=== PATIENT | male | born 1985 | race Caucasian/White ===

== ENCOUNTER 2024-07-27 23:06 | Emergency (ER) | payer OTHER, SELFPAY ==
[2024-07-27 23:24] VITALS: BP 134/93; PULSE 79; TEMP 36.6; O2SAT 96; BMI 25.1
--- NOTE | 2024-07-27 23:31 | CT_ITS ---
The [address] [address] Patient Name: SUPRIYA MAGAÑA MRN: [id number] date: 1985 Sex: M Assigned Patient Location: ER Current Patient Location: Accession/Order Number: [id number] Exam Date: 07/27/2024 23:41 Report Date: 07/27/2024 23:59 At the request of: NEIDA MARKER Procedure: CT head/brain wo con EXAM: CT head/brain wo con INDICATION: 38 years old; Male. Right-sided facial weakness, resolved. TECHNIQUE: CT Head (ax/cor/sag reformats). Ionizing radiation dose reduced via iterative reconstruction/FBP blend and body size kV/mA adjustment. Comparison: MRI the brain dated 03/22/2021. FINDINGS: POSTOPERATIVE CHANGES: None. BRAIN PARENCHYMA: No intraparenchymal or extra-axial hemorrhage. No mass effect. No midline shift or herniation. Normal cabrera/white differentiation. VENTRICLES/EXTRA-AXIAL SPACES: Normal for patient's age. SINUSES/MASTOIDS: The visualized sinuses are clear although the paranasal sinuses are not completely included. Mastoids and middle ears are clear although the mastoid tips are not completely included. MSK: No displaced or depressed calvarial fracture. OTHER: No hyperdense intraluminal thrombus. CT/CT head/brain wo con IMPRESSION: 1. No acute intracranial abnormalities. No hemorrhage or mass effect. Recommend follow-up examination with MRI including diffusion imaging. Electronically authenticated by: MARILUZ DERAS Date: 07/27/2024 23:59
--- NOTE | 2024-07-27 23:33 | ED_ITS ---
HPI - Chest Pain General Chief Complaint: Chest Pain Stated Complaint: CHEST PAIN Time Seen by Provider: 07/27/24 23:09 Source: patient Mode of arrival: Wheelchair Limitations: no limitations History of Present Illness HPI narrative: This 38-year-old male presents for evaluation of intermittent left-sided chest pain. 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 He states that she told him that he either had a heart attack or a seizure in his sleep. The patient has a history of seizures but does not take any seizure medication. He states that he was dizzy at that time and was going to walk out of the house without wearing shoes and couldn't find his cell phone but it was in his hand. He is not currently followed by a neurologist. He went to work and apparently his right sided facial droop had resolved but on the way to work had some left-sided chest pain. It is nonradiating. It is currently resolved. He states he has intermittent chest pain from time to time. He does not smoke cigarettes but vapes. He denies any shortness of breath or dizziness. He denies any abdominal pain. He states that he has nausea and vomits often after getting up from sleep which is not unusual for him. He denies any chronic abdominal pain or back pain. At this time he has clear speech and no focal neurologic deficits. He drove himself to the emergency department from his job. Related Data Home Medications ?Medication ?Instructions ?Recorded ?Confirmed No Known Home Medications 07/27/24 07/27/24 Allergies Allergy/AdvReac Type Severity Reaction Status Date / Time No Known Drug Allergies Allergy Verified 07/27/24 23:24 Review of Systems ROS Status of ROS 10 or more systems reviewed and unremark able except as noted in history and below PFSH PFSH Social History Little interest or pleasure in doing things: not at all Feeling down, depressed, or hopeless: not at all Exam Narrative Exam Narrative: Vital signs and Nursing Notes reviewed: Patient is afebrile with a normal pulse, blood pressure is mildly elevated at 134/93, he is not hypoxic with pulse ox of 96% on room air General: Awake, alert, oriented, no acute distress, lying comfortably on the stretcher HEENT: Normocephalic atraumatic, mucous membranes are moist and pink, eyes are clear, normal conjunctiva, vision is grossly intact, posterior pharynx is normal in appearance. There is no facial droop noted Neck: Supple, no meningeal signs, no anterior or posterior cervical ly mphadenopathy Chest: Lungs are clear to auscultation with good air entry, there is no wheezing rhonchi or rales appreciated no accessory muscle use, patient is speaking in complete sentences-no chest wall tenderness to palpation CVS: Regular rate and rhythm S1-S2, no murmurs rubs or gallops, pulses are brisk and equal bilaterally ABD: Soft, nondistended, nontender, no rebound guarding or rigidity, bowel sounds are normal, no pulsatile masses appreciated Extremities: Moving all extremities, no lower extremity tenderness or swelling noted, negative Homans' sign, pulses are brisk and equal bilaterally Skin: Normal in appearance without rash,pallor, petechiae or purpura Neuro: No focal deficits, speech is clear, there is no facial droop, director information strength is intact, negative pronator drift, upper and lower extremity strength and sensation is intact, NIH stroke scale is 0 Constitutional Vital Signs, click to edit/add: Last Vital Signs Temp 97.9 F 07/27/24 23:24 Pulse 54 L 07/28/24 01:00 Resp 22 H 07/28/24 01:00 BP 134/94 H 07/28/24 01:00 Pulse Ox 98 07/28/24 01:00 O2 Del Method Room Air 07/27/24 23:24 Course Vital Signs Vital signs: Vital Signs Temperature 97.9 F 07/27/24 23:24 Pulse Rate 79 07/27/24 23:24 Respiratory Rate 19 07/27/24 23:24 Blood Pressure 134/93 H 07/27/24 23:24 Pulse Oximetry 96 07/27/24 23:24 Oxygen Delivery Method Room Air 07/27/24 23:24 Temperature 97.9 F 07/27/24 23:24 Pulse Rate 54 L 07/28/24 01:00 Respiratory Rate 22 H 07/28/24 01:00 Blood Pressure 134/94 H 07/28/24 01:00 Pulse Oximetry 98 07/28/24 01:00 Oxygen Delivery Method Room Air 07/27/24 23:24 MDM - Chest Pain MDM Narrative Medical decision making narrative: This 38-year-old male presents for evaluation of several complaints. He states that on his way to work around 9 PM he was having some nonradiating left-sided chest pain. He states this is not unusual for him and he gets chest pain from time to time. He does not smoke but vapes. He denies any shortness of breath or dizziness but states when he woke up from work his told him that he was very pale and he was stumbling around in the house and tried to leave the house without wearing shoes and could not find his cell phone although it was in his hand. He does have a history of a seizure disorder. 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 He does not see a neurologist or have a family physician. His facial droop had resolved and his NIH stroke scale was 0. EKG done upon arrival was a sinus rhythm with sinus arrhythmia at 75 bpm. He was taken for CT scan of the brain. He was given 324 mg baby aspirin after his CT scan of the brain was normal. Routine cardiac labs are reviewed. He has a normal white count and hemoglobin. Electrolytes, liver function tests and troponin are normal. Delta troponin is also normal. I explained to him that his symptoms may be seizure related but at this point his cardiac workup is normal. He will be discharged home. Offered referral to local physician but prefers to seek medical care in his hometown. I did encourage him if he ever has neurologic symptoms such as a facial droop, ataxia confusion or other concerning symptoms he should go immediately to the emergency department not wait several hours. Medical Records Data Medical records narrative: [place] [address] CT Scan Report Signed Patient: SUPRIYA MAGAÑA MR#: [id number] : 1985 Acct:[id number] Age/Sex: 38 / M ADM Date: 07/27/24 Loc: ER Attending Dr: Ordering Physician: Angelica Sibley Date of Service: 07/27/24 Procedure(s): CT head/brain wo con Accession Number(s): [id number] cc: Physician,Non-Staff MMaegan~ The [address] [address] Patient Name: SUPRIYA MAGAÑA MRN: [id number] date: 1985 Sex: M Assigned Patient Location: ER Current Patient Location: ER Accession/Order Number: [id number] Exam Date: 07/27/2024 23:41 Report Date: 07/27/2024 23:59 At the request of: ANGELICA SIBLEY Procedure: CT head/brain wo con EXAM: CT head/brain wo con INDICATION: 38 years old; Male. Right-sided facial weakness, resolved. TECHNIQUE: CT Head (ax/cor/sag reformats). Ionizing radiation dose reduced via iterative reconstruction/FBP blend and body size kV/mA adjustment. Comparison: MRI the brain dated 03/22/2021. FINDINGS: POSTOPERATIVE CHANGES: None. BRAIN PARENCHYMA: No intraparenchymal or extra-axial hemorrhage. No mass effect. No midline shift or herniation. Normal cabrera/white differentiation. VENTRICLES/EXTRA-AXIAL SPACES: Normal for patient's age. SINUSES/MASTOIDS: The visualized sinuses are clear although the paranasal sinuses are not completely included. Mastoids and middle ears are clear although the mastoid tips are not completely included. MSK: No displaced or depressed calvarial fracture. OTHER: No hyperdense intraluminal thrombus. CT/CT head/brain wo con IMPRESSION: 1. No acute intracranial abnormalities. No hemorrhage or mass effect. Recommend follow-up examination with MRI including diffusion imaging. Electronically authenticated by: MARILUZ DERAS Date: 07/27/2024 23:59 Lab Data Attestation: I reviewed the patient's lab results. Labs: Lab Results 07/27/24 07/28/24 Range/Units 23:15 01:44 WBC 7.6 (4.0-11.0) 10^3/uL RBC 5.32 (4.70-6.10) 10^6/uL Hgb 15.5 (14.0-18.0) g/dL Hct 45.3 (42.0-54.0) % MCV 85.2 (80.0-94.0) fL MCH 29.1 (25.9-34.0) pg MCHC 34.2 (29.9-35.2) g/dL RDW 13.0 (11.0-15.0) % Plt Count 274 (150-450) 10^3/uL MPV 9.6 (9.5-13.5) fL Neut % (Auto) 58.8 (43.0-75.0) % Lymph % (Auto) 29.8 (20.5-60.0) % [place] % (Auto) 6.0 (1.7-12.0) % Eos % (Auto) 4.2 (0.9-7.0) % Baso % (Auto) 0.8 (0.2-2.0) % Neut # (Auto) 4.5 (1.4-6.5) 10^3/uL Lymph # (Auto) 2.3 (1.2-3.8) 10^3/uL [place] # (Auto) 0.5 (0.3-0.8) 10^3/uL Eos # (Auto) 0.3 (0.0-0.7) 10^3/uL Baso # (Auto) 0.1 (0.0-0.1) 10^3/uL Abs Immat Gran (auto) 0.03 (0.00-0.03) 10^3/uL Imm/Tot Granulo (auto) 0.4 (0.0-0.5) % Sodium 142 (136-145) mmol/L Potassium 3.3 L (3.5-5.1) mmol/L Chloride 106 (98-107) mmol/L Carbon Dioxide 25.9 (21.0-32.0) mmol/L Anion Gap 13.4 BUN 10.0 (7.0-18.0) mg/dL Creatinine 1.17 (0.70-1.30) mg/dL Est GFR ( Amer) >60 (>=60 mL/min/1.73m^2) Est GFR (Non-Af Amer) >60 (>=60 mL/min/1.73m^2) BUN/Creatinine Ratio 8.5 Glucose 104 (74-106) mg/dL Calcium 9.3 (8.5-10.1) mg/dL Total Bilirubin 0.4 (0.2-1.0) mg/dL AST 17 (15-37) U/L ALT 26 (16-63) U/L Alkaline Phosphatase 84 (46-116) U/L Troponin I High Sens 4.5 4.3 (4.0-76.1) pg/mL Total Protein 7.7 (6.4-8.2) g/dL Albumin 4.0 (3.4-5.0) g/dL Globulin 3.7 g/dL Albumin/Globulin Ratio 1.1 ECG Data Attestation: I personally reviewed and interpreted this ECG as follows: (Sinus rhythm with sinus arrhythmia at 75 bpm, normal axis, no acute ST segment elevation or T wave inversion) Heart Score History: Slightly/Non-Suspicious ECG: Normal Age: <45 years Risk Factors: 1 or 2 Risk Factors Troponin: <Normal Limit Total Heart Score Recommendations & Risks:: 1 Discharge Plan Discharge Chief Complaint: Chest Pain Clinical Impression: Atypical chest pain Patient Disposition: Home, Self-Care Time of Disposition Decision: 02:21 Condition: Good Prescriptions / Home Meds: No Action No Known Home Medications Print Language: Ethiopian Instructions: Noncardiac Chest Pain (ED) Referrals: Physician,Non-Staff, MD [Primary Care Provider] - 1 week
[2024-07-27 23:39] LABS: Basophils Absolute Auto 0.1 10^3/uL (0.0-0.1); Basophils Percent Auto 0.8 % (0.2-2.0); Eosinophils Absolute Auto 0.3 10^3/uL (0.0-0.7); Eosinophils Percent Auto 4.2 % (0.9-7.0); Hematocrit 45.3 % (42.0-54.0); Hemoglobin 15.5 g/dL (14.0-18.0); Immature Granulocytes Abs Auto 0.03 10^3/uL (0.00-0.03); Immature Granulocytes Pct Auto 0.4 % (0.0-0.5); Lymphocytes Absolute Auto 2.3 10^3/uL (1.2-3.8); Lymphocytes Percent Auto 29.8 % (20.5-60.0); Mean Corpuscular HGB Conc 34.2 g/dL (29.9-35.2); Mean Corpuscular Hemoglobin 29.1 pg (25.9-34.0); Mean Corpuscular Volume 85.2 fL (80.0-94.0); Mean Platelet Volume 9.6 fL (9.5-13.5); Monocytes Absolute Auto 0.5 10^3/uL (0.3-0.8); Neutrophils Absolute Auto 4.5 10^3/uL (1.4-6.5); Neutrophils Percent Auto 58.8 % (43.0-75.0); Platelet Count 274 10^3/uL (150-450); Red Blood Count 5.32 10^6/uL (4.70-6.10); White Blood Count 7.6 10^3/uL (4.0-11.0)
--- NOTE | 2024-07-27 23:41 | PC.NURSE ---
i walk into the patient's room to find this patient sitting upright awake and alert looking at his cell phone, informed this patient about new orders for head ct and medication. this patient voices no concerns and shows no signs of distress
--- NOTE | 2024-07-27 23:50 | ECG_ITS ---
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
[2024-07-27 23:51] VITALS: BP 124/87; PULSE 68; O2SAT 96
[2024-07-27 23:54] LABS: Alanine Aminotransferase 26 U/L (16-63); Albumin Globulin Ratio 1.1; Alkaline Phosphatase 84 U/L (46-116); Anion Gap 13.4; Aspartate Amino Transferase 17 U/L (15-37); BUN Creatinine Ratio 8.5; Bilirubin Total 0.4 mg/dL (0.2-1.0); Calcium 9.3 mg/dL (8.5-10.1); Carbon Dioxide 25.9 mmol/L (21.0-32.0); Chloride 106 mmol/L (98-107); Estimated GFR (African America >60 (>=60 mL/min/1.73m^2); Estimated GFR (Non-African Ame >60 (>=60 mL/min/1.73m^2); Globulin 3.7 g/dL; Glucose 104 mg/dL (74-106); Potassium 3.3 mmol/L (3.5-5.1); Sodium 142 mmol/L (136-145); Total Protein 7.7 g/dL (6.4-8.2); Troponin I High Sensitivity 4.5 pg/mL (4.0-76.1)
[2024-07-27] MEDS: ASPIRIN 81 MG TAB.CHEW 324 MG PO (23:56)
[2024-07-28 01:00] VITALS: BP 134/94; PULSE 54; O2SAT 98
[2024-07-28 02:06] LABS: Troponin I High Sensitivity 4.3 pg/mL (4.0-76.1)
[2024-07-28 02:24] VITALS: BP 127/89; PULSE 54; TEMP 36.8; O2SAT 96
--- NOTE | 2024-07-28 02:34 | PC.NURSE ---
i gave verbal and written discharge orders along with 1 work note, this patient vices yes to understanding these discharge orders. at time of discharge this patient voices no concerns and shows no signs of distress
== END 2024-07-28 02:35 | disposition home or self-care (01) ==
PROVIDERS: Emergency Provider Emergency Medicine
DX: R07.89 Other chest pain (principal); F17.290 Nicotine dependence, other tobacco product, uncomplicated; G40.909 Epilepsy, unspecified, not intractable, without status epilepticus; R29.810 Facial weakness
CPT/HCPCS: 36415; 70450; 80053; 84484; 85025; 93005; 99285

== ENCOUNTER 2025-06-03 01:30 | Emergency (ER) | payer SELFPAY ==
[2025-06-03 01:42] VITALS: BP 120/83; PULSE 63; TEMP 36.6; O2SAT 98; BMI 25.1
--- NOTE | 2025-06-03 01:48 | XR_ITS ---
The [address] [address] Patient Name: SUPRIYA MAGAÑA MRN: [id number] date: 1985 Sex: M Assigned Patient Location: ER Current Patient Location: ED.MAIN Accession/Order Number: [id number] Exam Date: 06/03/2025 01:58 Report Date: 06/03/2025 08:16 At the request of: GISELLE DELGADILLO MD Procedure: XR lumbar spine 2-3V CLINICAL DATA: Neck and lower back pain for the past 4 - 5 months. CERVICAL SPINE - 2 views: COMPARISON: None AP and lateral views were obtained. There is straightening of the normal cervical lordosis. There is no acute compression fracture. There is a couple millimeters of retrolisthesis of C4 on C5. The disc spaces are maintained. There is minimal endplate spurring. No prevertebral soft tissue swelling is seen. XR/XR lumbar spine 2-3V IMPRESSION: LOSS OF NORMAL CERVICAL LORDOSIS. NO ACUTE BONY FINDINGS. LUMBAR SPINE - 2 views COMPARISON: None Standing AP and lateral views were obtained. There is no acute fracture or displacement. The disc spaces are maintained. There is minimal endplate spurring and lower lumbar facet hypertrophy. The SI joints are intact. No paraspinal soft tissue abnormalities are noted. IMPRESSION: MINOR DEGENERATIVE CHANGE. NO ACUTE BONY FINDINGS. Impression dictated by: Agustina Garcia M.D. 06/03/2025 8:16 AM Dictation Location: [facility] Electronically authenticated by: [id number] Y Date: 06/03/2025 08:16
--- NOTE | 2025-06-03 01:48 | XR_ITS ---
The [address] [address] Patient Name: SUPRIYA MAGAÑA MRN: [id number] date: 1985 Sex: M Assigned Patient Location: ER Current Patient Location: ED.MAIN Accession/Order Number: [id number] Exam Date: 06/03/2025 01:58 Report Date: 06/03/2025 08:16 At the request of: GISELLE DELGADILLO MD Procedure: XR lumbar spine 2-3V CLINICAL DATA: Neck and lower back pain for the past 4 - 5 months. CERVICAL SPINE - 2 views: COMPARISON: None AP and lateral views were obtained. There is straightening of the normal cervical lordosis. There is no acute compression fracture. There is a couple millimeters of retrolisthesis of C4 on C5. The disc spaces are maintained. There is minimal endplate spurring. No prevertebral soft tissue swelling is seen. XR/XR cervical spine 2-3V IMPRESSION: LOSS OF NORMAL CERVICAL LORDOSIS. NO ACUTE BONY FINDINGS. LUMBAR SPINE - 2 views COMPARISON: None Standing AP and lateral views were obtained. There is no acute fracture or displacement. The disc spaces are maintained. There is minimal endplate spurring and lower lumbar facet hypertrophy. The SI joints are intact. No paraspinal soft tissue abnormalities are noted. IMPRESSION: MINOR DEGENERATIVE CHANGE. NO ACUTE BONY FINDINGS. Impression dictated by: Agustina Garcia M.D. 06/03/2025 8:16 AM Dictation Location: [facility] Electronically authenticated by: [id number] Y Date: 06/03/2025 08:16
--- NOTE | 2025-06-03 01:49 | ED_ITS ---
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 Presents complaining of neck and back pain for past 3 months. Describes turning his head and his neck feeling like it is locking up. No radicular symptoms. left work and came here because of the pain. no weakness of his extremities Related Data Home Medications ?Medication ?Instructions ?Recorded ?Confirmed No Known Home Medications 07/27/2412/15 Allergies Allergy/AdvReac Type Severity Reaction Status Date / Time No Known Drug Allergies Allergy Verified 07/27/24 23:24 Opioid HPI Opioid Management Most Recent Opioid Data: Last Pain Scale 5 Today, 01:42 Review of Systems ROS Status of ROS 10 or more systems reviewed and unremark able except as noted in history and below PFSH PFSH Social History Little interest or pleasure in doing things: not at all Feeling down, depressed, or hopeless: not at all Exam Constitutional Vital Signs, click to edit/add: Last Vital Signs Temp 97.8 F 06/03/25 01:42 Pulse 63 06/03/25 01:42 Resp 17 06/03/25 01:42 BP 120/83 06/03/25 01:42 Pulse Ox 98 06/03/25 01:42 O2 Del Method Room Air 06/03/25 01:42 Common normals: no apparent distress, average body habitus, oriented x3, no limitations, healthy appearing, alert and well nourished [facility] Common normals: normocephalic and head/scalp atraumatic Eye Common normals: EOMs intact bilaterally and conjunctivae normal Respiratory Common normals: normal respiratory effort, no retractions, no use of accessory muscles and clear to auscultation bilaterally Cardio Common normals: regular rate, regular rhythm, S1 normal heart sound and S2 normal heart sound Back & Pelvis Common normals: thoracic and lumbar spine normal to inspection and no thoracic nor lumbar tenderness Extremity Common normals: normal to inspection and full ROM Neuro Common normals: oriented x3, CN's II-XII intact bilaterally, moves all extremities and no focal motor deficits Psych Appearance: grossly normal Course Vital Signs Vital signs: Vital Signs Temperature 97.8 F 06/03/25 01:42 Pulse Rate 63 06/03/25 01:42 Respiratory Rate 17 06/03/25 01:42 Blood Pressure 120/83 06/03/25 01:42 Pulse Oximetry 98 06/03/25 01:42 Oxygen Delivery Method Room Air 06/03/25 01:42 Temperature 97.8 F 06/03/25 01:42 Pulse Rate 63 06/03/25 01:42 Respiratory Rate 17 06/03/25 01:42 Blood Pressure 120/83 06/03/25 01:42 Pulse Oximetry 98 06/03/25 01:42 Oxygen Delivery Method Room Air 06/03/25 01:42 MDM - Back Pain/Injury MDM Narrative Medical decision making narrative: patient presents with 3 months of neck and lower back pain. left work tonight and came to ER. No focal findings. Xrays of C-spine and L-spine per my preliminary review without acute findings. Patient advised of the need to follow up with a family doctor to manage his chronic pain issues. Provided with a work note Discharge Plan Discharge Chief Complaint: Back Pain/Injury Clinical Impression: Neck arthralgia, Chronic lower back pain Patient Disposition: Home, Self-Care Prescriptions / Home Meds: No Action No Known Home Medications Print Language: South Korean Instructions: Chronic Pain (ED), Chronic Neck Pain (DC) Additional Instructions: follow up with Dr Nguyen this week Referrals: Physician,Non-Staff, MD [Primary Care Provider] - 1 week
--- OUTSIDE RECORDS SUMMARY | 2025-06-03 02:25 | XMS_ITS | Clinical Summary ---
Author Organization [facility] Address [address] [place] [address] Care Team Providers Care Auto Fleet Maintenance Manager Name Role Phone Luci Hernandez UNIT LEADER Unavailable [phone]- [phone] Gisella Angelica Deep UNIT LEADER Unavailable [phone]- [phone] Nasreen Coon MD Unavailable [phone]- [phone] Allergies Active Allergy Reactions Criticality Noted Date Comments Bupropion 05/03/2015 Risperidone 05/03/2015 Bupropion Hcl 05/03/2015 Sertraline 12/25/2017 Medications omeprazole (PRILOSEC) 20 MG capsule Take 20 mg by mouth daily. Active ibuprofen (ADVIL,MOTRIN) 600 MG tablet Take 600 mg by mouth every 6 (six) hours as needed . 01/19/20 Active miscellaneous medical supply (Blood Pressure Cuff) MiscIndications:Epi sodic lightheadedness 2 application by Miscellaneous route 2 (two) times a day Monitor and record BP . 1 each 02/12/20 Active Additional Information Patient not taking.Reported on 03/24/2021 topiramate (TOPAMAX) 25 MG tablet Take 1 (one) tablet (25 mg total) by mouth 2 (two) times a day . 60 tablet 02/29/20 Active albuterol 90 mcg/actuation inhalerIndications: Mild intermittent asthma without complication Inhale 2 (two) puffs every 4 (four) hours as needed . 1 Inhaler 11 03/14/20 Active budesonide-formoter oL (SYMBICORT) 160-4.5 mcg/actuation inhalerIndications: Mild intermittent asthma without complication Inhale 2 (two) puffs 2 (two) times a day . 1 Inhaler 12 03/14/20 Active predniSONE (DELTASONE) 20 MG tablet 3 tabs po daily x 5 days and then 2 tabs daily x 2 days and then 1 tab daily x 2 days and then 1/2 tab daily x 2 days . 22 tablet 01/03/20 Active diphenhydrAMINE (BENADRYL) 25 mg capsule Take 1 (one) capsule to 2 (two) capsules (25-50 mg total) by mouth every 6 (six) hours as needed for itching . 20 capsule 01/03/20 Active famotidine (PEPCID) 20 MG tablet Take 1 (one) tablet (20 mg total) by mouth 2 (two) times a day for 10 days . 20 tablet 01/03/20 Active EPINEPHrine (EPIPEN) 0.3 mg/0.3 mL AtIn Inject 0.3 mL (0.3 mg total) into the mid-thigh as needed for severe allergic reaction. . 1 each 01/03/20 Active Active Problems Problem Noted Date Diagnosed Date Mild intermittent asthma without complication Tobacco dependence with current use 03/15/2021 Family History Medical History Relation Comments Heart disease Father Relation Status Comments Father Social History Tobacco Use Types Packs/Day Years Used Date Smoking Tobacco: Every Day Cigarettes 0.5 21 Smokeless Tobacco: Never Tobacco Cessation:Ready to Q uit: Yes; Counseling Given: Yes Comments:slowly weaning down Alcohol Use Standard Drinks/Week Comments Not Currently 0 (1 standard drink = 0.6 oz pur e alcohol) Sex and Gender Information Value Date Recorded Sex Assigned at Not on file Legal Sex Male 12:20 PM EDT Gender Identity Male 03/28/2018 1:13 AM EDT Sexual Orientation Straight 03/28/2018 1: 13 AM EDT Last Filed Vital Signs Vital Sign Reading Time Taken Comments Blood Pressure 118/84 01/02/2022 5:16 AM EDT Pulse 95 01/02/2022 5:16 AM EDT Temperature 36.9 C (98.4 F) 01/02/2022 5:16 AM EDT Respiratory Rate 16 01/02/2022 5:16 AM EDT Oxygen Saturation 95% 01/02/2022 5:16 AM EDT Inhaled Oxygen Concentration - - Weight 79.4 kg (175 lb) 01/02/2022 5:16 AM EDT Height 175.3 cm (5' 9 ) 03/24/2021 3:08 PM EDT Body Mass Index 25.84 03/24/2021 3:08 PM EDT Plan of Treatment Health Maintenance Due Date Last Done Comments Tetanus: Every 10yrs 1986 Depression Screening/Follow- Up (PHQ-2/9) 1998 Wellness Visit 02/15/2022 02/15/2021 COVID-19 Vaccine (2 - 2024-2 6 season) 2025 01/04/2021 Influenza Vaccine (#1) 2025 HIV Screening Completed 02/15/2021 Hepatitis C Screening Completed 02/15/2021 Pneumococcal Vaccine: Ped or At-Risk Aged Out No longer eligible b ased on patient's age to complete this topic Goals Goal Patient Goal Type Associated Problems Recent Progress Patient-Stated? Author Good Nutrition Diet No Jenna Cox CNP Exercise 150 minutes per week (moderate activity) Exercise No Jenna Cox CNP stop smoking to reduce health risks Lifestyle No Jenna Cox CNP Procedures Procedure Name Priority Date/Time Associated Diagnosis Comments HIV 1/2 SCREEN (4TH GENERATION) Routine 02/15/2021 3:45 PM EDT Annual visit for general adult medical examination with abnormal findings Screening for viral disease HEPATITIS C ANTIBODY Routine 02/15/2021 3:45 PM EDT Annual visit for general adult medical examination with abnormal findings Screening for viral disease from Last 3 Months or Most Recently Relevant to Health Maintenance Results * Hepatitis C Antibody (02/15/2021 3:45 PM EDT) Hepatitis C Ab Negative Negative 02/16/2021 10:57 AM EDT [facility] Blood Venipuncture / Unknown 02/15/2021 3:45 PM EDT 02/15/2021 9:59 PM EDT Narrative [facility] - 02/16/2021 10:57 AM EDT Test performed using [employer] JUAN PABLO immunoassay system us Jenna Bethany Kenny UNIT LEADER LAB BLOOD ORDERABLES F inal Result [facility] [place] [address] * HIV 1/2 Screen (4th Generation) (02/15/2021 3:45 PM EDT) HIV 1-2 Screen Negative Negative 02/16/2021 10:57 AM EDT [facility] Blood Venipuncture / Unknown 02/15/2021 3:45 PM EDT 02/15/2021 9:59 PM EDT Narrative [facility] - 02/16/2021 10:57 AM EDT This assay screens for the presence of HIV-1, HIV-2 antibodies and for the presence of HIV-1 antigen. Test performed using [employer] JUAN PABLO immunoassay system [facility] LAB BLOOD ORDERABLES F inal Result Performing Organization Address City/[facility]/ZIP Co de Phone Number [facility] [address] [place] [phone] from Last 3 Months or Most Recently Relevant to Health Maintenance [place] [address] [place] [id number] [place] Care Teams Auto Fleet Maintenance Manager Relationship Specialty Start Date End Date Luci Hernandez CNP [address] [place] [id number] Nurse Practitioner Nurse Practitioner 02/15/21 Angelica Obando CNP [facility] [place] [address] Nurse Practitioner 03/24/21 Nasreen Coon MD [address] [place] [address] Nephrology 03/24/21
--- OUTSIDE RECORDS SUMMARY | 2025-06-03 02:25 | XMS_ITS | Clinical Summary ---
Author Organization [facility] Address [address] [facility] [place] [address] Care Team Providers Care Block Operator Name Role Phone Pcp, No Primary Care Provider Unavailabl e Allergies No known active allergies Medications Methylprednisolo ne (MEDROL DOSEPACK) 4 mg Oral Tablets, Dose Pack Take as instructed . 21 Tablet 02/11/2024 Active Social History Tobacco Use Types Packs/Day Years Used Date Smoking Tobacco: Never Assessed Sex and Gender Information Value Date Recorded Sex Assigned at Not on file Legal Sex Male 6:56 PM EDT Gender Identity Not on file Sexual Orientation Not on file Last Filed Vital Signs Vital Sign Reading Time Taken Comments Blood Pressure 121/83 02/13/2024 7:30 PM EDT Pulse 65 02/13/2024 7:30 PM EDT Temperature 36.7 C (98 F) 02/13/2024 7:30 PM EDT Respiratory Rate 20 02/13/2024 7:30 PM EDT Oxygen Saturation 98% 02/13/2024 7:30 PM EDT Inhaled Oxygen Concentration - - Weight 77.1 kg (170 lb) 02/13/2024 5:00 PM EDT Height 175.3 cm (5' 9 ) 02/13/2024 5:00 PM EDT Body Mass Index 25.1 02/13/2024 5:00 PM EDT Plan of Treatment Health Maintenance Due Date Last Done Comments Hepatitis C screening 1986 NonMedicare Preventative Exam 1986 HIV Screening 2001 Adult Tdap-Td (1 - Tdap) 2005 Hepatitis B Vaccine (1 of 3 - 19+ 3-dose series) 08/19 Pneumococcal Vaccine, Age 0-49 (1 of 2 - PCV) 08/19/20 05 Depression Screening 02/12/2025 02/13/2024 [facility] [employer] Hidden 04/24/2025 Covid-19 Vaccine ( - 2024- season) 2025 Influenza Vaccine (#1) 2025 HPV Vaccine (Optional 27-45 Years) (No Doses Required) Completed Insurance [facility] Care Teams Block Operator Relationship Specialty Start Date End Date Pcp, No PCP - General 02/11/24
--- OUTSIDE RECORDS SUMMARY | 2025-06-03 02:25 | XMS_ITS | Clinical Summary ---
Author Organization [facility] Address [address] [facility], [address] [place] [address] Care Team Providers Care Director Manufacturing Engineering Name Role Phone Alexei Luna DO Primary Care Provider Allergies Active Allergy Reactions Criticality Noted Date Comments Bupropion 05/03/2015 Risperidone 05/03/2015 Sertraline 12/25/2017 Medications omeprazole (PRILOSEC) 20 MG delayed release capsule Take 1 capsule by mouth daily Active albuterol sulfate HFA (PROVENTIL HFA) 108 (90 Base) MCG/ACT inhaler Inhale 2 puffs into the lungs every 4 hours as needed for Wheezing or Shortness of Breath 1 Inhaler 1 Active Additional Information Patient not taking.Reported on 08/06/2024 ibuprofen (ADVIL;MOTRIN) 600 MG tablet Take 1 tablet by mouth every 6 hours as needed for Pain or Fever 40 tablet 1 Active SYMBICORT 160-4.5 MCG/ACT AERO INHALE 2 PUFFS TWICE DAILY 1 Active Respiratory Therapy Supplies (NEBULIZER/TUBIN G/MOUTHPIECE) KITIndications:M ild intermittent asthma without complication 1 kit by Does not apply route daily as needed (SOA) 1 kit 1 Active Additional Information Patient not taking.Reported on 08/06/2024 albuterol (PROVENTIL) (5 MG/ML) 0.5% nebulizer solutionIndicati ons:Mild intermittent asthma without complication Take 0.5 mLs by nebulization every 4 hours as needed for Wheezing or Shortness of Breath 120 each 3 07/29/202 1 Active Additional Information Patient not taking.Reported on 08/06/2024 rizatriptan (MAXALT) 10 MG tabletIndication s:Classical migraine with intractable migraine with aura Take 1 tablet by mouth daily as needed for Migraine May repeat in 2 hours if needed 27 tablet 1 4 Active azithromycin (ZITHROMAX Z-DHAVAL) 250 MG tablet Take 1 z-dhaval as directed. 1 packet 5 Active Active Problems Problem Noted Date Diagnosed Date Incomplete RBBB 08/07/2024 Seizure disorder 07/27/2024 Other visual disturbances 02/13/2024 Left testicular pain 11/17/2022 Right testicular pain 11/17/2022 Chronic fatigue, unspecified 10/19/2022 Classical migraine with intractable migraine wit h aura 04/21/2021 Mild intermittent asthma without complication Nicotine dependence, cigarettes, uncomplicated 0 04/21/2021 Immunizations Immunization Administration Dates Next Due COVID-19, PFIZER PURPLE top, DILUTE for use, (age 12 y+), 30mcg/0.3mL 01/04/2021 Hep B, ENGERIX-B, RECOMBIVAX -HB, (age - 19y), IM, 0.5mL 09/06/2004,07/25/2004 TDaP, ADACEL (age 10y-64y), BOOSTRIX (age 10y+), IM, 0.5mL 10/19/2022 Family History Medical History Relation Name Comments Cancer Maternal Grandfather Cancer Paternal Grandfather Relation Name Status Comments Brother 1 Alive Brother 2 Alive Father Alive Maternal Grandfather Maternal Grandmother Mother Alive Paternal Grandfather Paternal Grandmother Sister Alive Social History Tobacco Use Types Packs/Day Years Used Date Smoking Tobacco: Former Cigarettes 0.5 21 1 - 2019 Smokeless Tobacco: Never Alcohol Use Standard Drinks/Week Comments Not Currently 0 (1 standard drink = 0.6 oz pur e alcohol) AUDIT-C Answer Date Recorded Q1: How often do you have a drink containing alcohol? Never 09/28/2024 Q2: How many drinks containi ng alcohol do you have on a typical day when you are drinking? Patient does not drink Q3: How often do you have si x or more drinks on one occasion? Never 09/28/2024 Overall Financial Resource Strain (CARDIA) Answe r Date Recorded How hard is it for you to pa y for the very basics like food, housing, medical care, and heating? Not hard at all 08/06/2024 PHQ-2 Answer Date Recorded PHQ-9 Total Score 0 08/06/2024 Hunger Vital Sign Answer Date Recorded Within the past 12 months, y ou worried that your food would run out before you got the money to buy more. Never true 08/06/20 24 Within the past 12 months, t he food you bought just didn't last and you didn't have money to get more. Never true 08/06/2024 PRAPARE - Transportation Answer Date Re corded Lack of Transportation (Medical) Not on file 08/06/2024 In the past 12 months, has l ack of transportation kept you from meetings, work, or from getting things needed for daily living? No 08/06/2024 Housing Stability Vital Sign Answer Vijay e Recorded Unable to Pay for Housing in the Last Year Not o n file 08/06/2024 Number of Times Moved in the Last Year Not on fi le 08/06/2024 At any time in the past 12 m [facility], were you homeless or living in a mcc (including now)? No 08/06/2024 Food Insecurity Answer Date Recorded Within the past 12 months, y ou worried that your food would run out before you got the money to buy more. 1 08/06/2024 Within the past 12 months, t he food you bought just didn't last and you didn't have money to get more. 1 08/06/2024 Sex and Gender Information Value Date Recorded Sex Assigned at Not on file Legal Sex Male 1:39 AM EDT Gender Identity Not on file Sexual Orientation Not on file Last Filed Vital Signs Vital Sign Reading Time Taken Comments Blood Pressure 151/91 09/28/2024 9:45 AM EST Pulse 90 09/28/2024 9:45 AM EST Temperature 36.9 C (98.4 F) 09/28/2024 9:45 AM EST Respiratory Rate 18 09/28/2024 9:45 AM EST Oxygen Saturation 98% 09/28/2024 9:45 AM EST Inhaled Oxygen Concentration - - Weight 79.4 kg (175 lb) 09/28/2024 9:45 AM EST Height 177.8 cm (5' 10 ) 09/28/2024 9:45 AM EST Body Mass Index 25.11 09/28/2024 9:45 AM EST Plan of Treatment Health Maintenance Due Date Last Done Comments Varicella vaccine (1 of 2 - 13+ 2-dose series) 1999 HIV screen 2001 Hepatitis C screen 2004 Hepatitis B vaccine (3 of 3 - 3-dose series) 11/14/2004 09/06/2004, 07/25/2004 Pneumococcal 0-49 years Vaccine (1 of 2 - PCV) 2005 COVID-19 Vaccine (2 - 2023-2 5 season) 2024 01/04/2021 Flu vaccine (#1) 04/24/2025 Depression Screen 08/06/2025 08/06/2024, 08/06/2024 DTaP/Tdap/Td vaccine (2 - Td or Tdap) 10/19/2032 10/19/2022 HPV vaccine (No Doses Required) Completed Hepatitis A vaccine Aged Out No longe r eligible based on patient's age to complete this topic Hib vaccine Aged Out No longer eligi ble based on patient's age to complete this topic Meningococcal (ACWY) vaccine Aged Out No longer eligible based on patient's age to complete this topic Meningococcal B vaccine Aged Out No l onger eligible based on patient's age to complete this topic Polio vaccine Aged Out No longer elig ible based on patient's age to complete this topic Insurance [facility] MEDICAID Advance Directives Healthcare Agents on File Name Relationship Healthcare Agent [facility] Communication Jessica Devries Spouse Primary Decision Maker Care Teams Director Manufacturing Engineering Relationship Specialty Start Date End Date Alexei Luna DO [address] [place] [address] PCP - General Family Medicine 04/21/21
--- OUTSIDE RECORDS SUMMARY | 2025-06-03 02:26 | XMS_ITS | CCD ---
Author Organization [facility] Care Team Providers Care Microbiology Lab Assistant Name Role Phone No, Physician Unavailable Unavailable NO, PHYSICIAN Unavailable Unavailable MARGIE PORRAS Unavailable Unavailab VIRGINIA Ross Unavailable Unavailable VIRGINIA ANTUNEZ Unavailable Unavailable VIRGINIA ANTUNEZ Unavailable Unavailable NO, PHYSICIAN Primary Care Unavailable DIGNA APARICIO Attending Unavailable Jenna Cox CNP Primary Care Provider Jenna Cox CNP Primary Care Provider Anali Hernandez CNP Unavailable [phone] JENNA COX Primary Care Unavailable ANGELICA OBANDO Attending Unavailab ANALI Beckman Referring Unavailab JENNA Zimmerman Primary Care Unavailable ANGELICA OBANDO Attending Unavailab JENNA Zimmerman Primary Care Unavailable Unavailable Primary Care Provider UnavailJENNA Chance Attending Unavailab JENNA Zimmerman Referring Unavailab JENNA Zimmerman Primary Care Unavailab ANGELICA Sanders Attending Unavailab ANGELICA Sanders Referring Unavailab JENNA Zimmerman Primary Care Unavailab JENNA Zimmerman Attending Unavailab JENNA Zimmerman Referring Unavailab JENNA Zimmerman Primary Care Unavailab le Pcp, None Primary Care Provider UnavailJENNA Chance Primary Care Unavailable AGUSTINA COOK Attending Unav ailable Pcp, None Primary Care Provider Unavailabl e PCP, NONE Primary Care Unavailable ANTONI RUFF Admitting Unavailable ANTONI RUFF Attending Unavailable PCP, NONE Primary Care Unavailable RUBI VALE Admitting Unavailable PCP, NONE Primary Care Unavailable IVAN MCKEON Admitting Unavailab le TAHIR, IVAN FERNANDEZ Attending Unavailab le PCP, NONE Primary Care Unavailable PCP, NONE Primary Care Unavailable VIRGINIA CARLOS Attending Unavailable VIRGINIA CARLOS Referring Unavailable KANDICE LAL Attending Unavailable KANDICE LAL Referring Unavailable PCP, NONE Primary Care Unavailable PCP, NONE Primary Care Unavailable VIRGINIA CARLOS Attending Unavailable NELLY KILLIAN Referring Unavailable PCP, NONE Primary Care Unavailable NAKIA SQUIRES Attending Unavailable PCP, NONE Referring Unavailable PCP, NONE Primary Care Unavailable NAKIA SQUIRES Attending Unavailable NAKIA SQUIRES Referring Unavailable PCP, NONE Primary Care Unavailable PCP, NONE Referring Unavailable PCP, NONE Primary Care Unavailable VIRGINIA CARLOS Attending Unavailable VIRGINIA CARLOS Referring Unavailable PCP, NONE Primary Care Unavailable NELLY KILLIAN Attending Unavailable PCP, NONE Referring Unavailable IVAN MCKEON Attending Unavailab le PCP, NONE Referring Unavailable PCP, NONE Primary Care Unavailable PCP, NONE Primary Care Unavailable CHRISTINE MANCIA Attending Unavailable PCP, NONE Referring Unavailable RYAN RAMIREZ Attending Unavailable RYAN RAMIREZ Admitting Unavailable None Primary Care Physician Unavailab le physician, Non-Staff Primary Care Physician Unav ailable Rosalio German Attending Unavailable Rosalio German Attending Unavailable Milton Mckeon Attending Unavailable Jenaro, POWER SUPPLY ENGINEER.BUSINESS SERVICES ASSOCIATE Amelia Attending Unavailab le Stinard, POWER SUPPLY ENGINEER.BUSINESS SERVICES ASSOCIATE Belinda Attending Unavailab le Stinard, POWER SUPPLY ENGINEER.BUSINESS SERVICES ASSOCIATE Belinda Attending Unavailab le Stinard, POWER SUPPLY ENGINEER.BUSINESS SERVICES ASSOCIATE Belinda Referring Unavailab le Stinard, POWER SUPPLY ENGINEER.BUSINESS SERVICES ASSOCIATE Belinda Attending Unavailab le Shirley Alejandro Attending Unavailable Stinard, POWER SUPPLY ENGINEER.BUSINESS SERVICES ASSOCIATE Belinda Attending Unavailab le Stinard, POWER SUPPLY ENGINEER.BUSINESS SERVICES ASSOCIATE Belinda Referring Unavailab le Radivoj, POWER SUPPLY ENGINEER.BUSINESS SERVICES ASSOCIATE Luzma Attending Unav ailable Milton Mckeon Attending Unavailable RACHEL JONES Attending Unavailable PCP, NO Primary Care Unavailable RC ALEGRIA Referring Unavailable PCP, NO Primary Care Unavailable PROVIDER, [facility] Attending Unavailable PCP, NO Primary Care Unavailable PCP, NO Primary Care Unavailable MARSHA KENNEY Referring Unavailable PCP, NO Primary Care Unavailable Margie HOPKINS Attending Unavailable Alexei Luna DO Primary Care Provider [phone] ALEXEI LUNA Referring Unavailable ALEXEI LUNA Primary Care Unavailable ALEXEI LUNA Referring Unavailable ALEXEI LUNA Attending Unavailable ALEXEI LUNA Primary Care Unavailable CAMI REID Attending Unavailable ALEXEI LUNA Primary Care Unavailable ALEXEI LUNA Referring Unavailable ALEXEI LUNA Primary Care Unavailable ALEXEI LUNA Referring Unavailable ALEXEI LUNA Primary Care Unavailable ALEXEI LUNA Primary Care Unavailable ALEXEI LUNA Referring Unavailable UZMA BE Referring Unavailable Allergies Allergy Classification Reported Allergen(s) Allergy Type Date of Onset Reaction(s) Facility Aminoketones (12 sources) buPROPion; Translations: [BUPROPION] Drug Allergy 05-03-20 15 [facility] risperiDONE (6 sources) risperiDONE; Translations: [RISPERIDONE] Drug Allergy 05-03-20 15 [facility] Serotonin Reuptake Inhibitors (SSRIs) (6 sources) Sertraline; Translations: [SERTRALINE] Drug Allergy 12-26-19 18 [facility] (7 sources) buPROPion; Translations: [BUPROPION HCL] Propensity to adverse reactions to drug 05-03-20 15 [facility] (14 sources) risperiDONE; Translations: [RISPERIDONE] Propensity to adverse reactions to drug 05-03-20 15 [facility] (14 sources) sertraline; Translations: [SERTRALINE] Propensity to adverse reactions to drug 12-26-19 18 [facility] (10 sources) buPROPion; Translations: [BUPROPION] Drug Allergy 05-03-20 15 [facility] (1 source) Sulfamethoxazole / Trimethoprim Drug Allergy 01-17-20 22 [facility] (1 source) Sertraline Drug Allergy 03-21-20 23 [facility] (1 source) Amoxicillin / Clavulanate; Translations: [Augmentin] Drug Allergy [facility] (1 source) risperiDONE; Translations: [RisperDAL] Drug Allergy [facility] Medications Current Medications Medication Drug Class(es) Dates Sig (Normalized) Sig (Original) [id number] 200 actuat albuterol 0.09 mg/actuat metered dose inhaler (20 sources) beta2-Adrenergic Agonist Start: 09-02-2021 take 2 puff(s) by inhalation every six hours as needed for wheezing albuterol 108 (90 Base) MCG/ACT inhaler Inhale 2 puffs into the lungs every 6 hours as needed for Wheezing and/or Shortness of breath. 8 g 0 09/02/2021 Active Start: 04-21-2021 albuterol (PRO VENTIL) (5 MG/ML) 0.5% nebulizer solution Indications: Mild intermittent asthma without complication Take 0.5 mLs by nebulization every 4 hours as needed for Wheezing or Shortness of Breath 120 each 3 04/21/2021 Active Start: 01-17-2021 End: 03-14-2021 take 2 puff(s) by inhalation every four hours as needed for wheezing albuterol sulfate HFA (PROVENTIL HFA) 108 (90 Base) MCG/ACT inhaler Inhale 2 puffs into the lungs every 4 hours as needed for Wheezing or Shortness of Breath 1 Inhaler 01/17/2021 Active take 2 puff(s) by in halation every six hours as needed for wheezing albuterol 108 (90 Base) MCG/ACT inhaler Inhale 2 puffs into the lungs every 6 hours as needed for Wheezing and/or Shortness of breath. 0 Active azithromycin 250 mg oral tablet (3 sources) Macrolide Antimicrobial Start: 09-28-2024 azithromycin (ZITHROMAX Z-DHAVAL) 250 MG tablet Take 1 z-dhaval as directed. 1 packet 09/28/2024 Active Start: 06-11-2018 End: 06-15-2018 take 1 tablet by mouth once daily azithromycin (ZITHROMAX) 250 MG tablet Take 1 (one) tablet (250 mg total) by mouth daily for 4 days. 4 tablet 0 06/11/2018 06/15/2018 Active Start: 06-11-2018 End: 06-11-2018 azithromycin (ZITHROMAX) tab let 500 mg 60 actuat budesonide 0.16 mg/actuat / formoterol fumarate 0.0045 mg/actuat metered dose inhaler (12 sources) Corticosteroid, beta2-Adrenergic Agonist Start: 03-14-2021 take 2 puff(s) by inhalation twice daily SYMBICORT 160-4.5 MCG/ACT AERO INHALE 2 PUFFS TWICE DAILY 03/14/2021 Active Start: 03-14-2021 End: 03-14-2022 take 2 puff(s) by inhalation twice daily budesonide-formoteroL (SYMBICORT) 160-4.5 mcg/actuation inhaler Indications: Mild intermittent asthma without complication Inhale 2 (two) puffs 2 (two) times a day . 1 Inhaler 12 03/14/2021 03/14/2022 Active take 2 puff(s) by in halation twice daily budesonide-formoterol (SYMBICORT) 160-4.5 MCG/ACT inhaler Inhale 2 puffs into the lungs two times a day. 0 Active cephalexin 500 mg oral capsule (3 sources) Cephalosporin Antibacterial Start: 02-17-2022 take 1 capsule by mouth twice daily cephalexin (KEFLEX) 500 MG capsule Indications: Vasectomy evaluation , Prophylactic antibiotic Take 1 capsule by mouth two times a day. Please start first dose the evening prior to your scheduled procedure 6 capsule 0 02/17/2022 Active Start: 03-19-2018 End: 03-26-2018 take 1 capsule by mouth four times daily cephALEXin (KEFLEX) 500 MG capsule Take 1 (one) capsule (500 mg total) by mouth 4 (four) times a day for 7 days. 28 capsule 0 03/19/2018 03/26/2018 Active cyclobenzaprine hydrochloride 10 mg oral tablet (2 sources) Muscle Relaxant Start: 03-21-2023 take 1 tablet by mouth at bedtime Cyclobenzaprine HCl ([id number] M1) 10 MG TAB Active 10 MG PO AT BEDTIME 5 5 March 21, 2023 11:45am Start: 10-22-2021 End: 12-03-2021 take 1 tablet by mouth three times daily as needed for muscle spasms cyclobenzaprine (FLEXERIL) 10 MG tablet Indications: Muscle strain of left thigh, initial encounter Take 1 tablet by mouth 3 times daily as needed for Muscle spasms. 30 tablet 0 10/22/2021 12/03/2021 Discontinued inhalational spacing device inhaler (2 sources) Start: 03-14-2021 End: 03-14-2022 inhalational spacing device inhaler Indications: Mild intermittent asthma without complication Use as instructed . 1 each 2 03/14/2021 03/14/2022 Active lidocaine 0.05 mg/mg medicated patch (1 source) Antiarrhythmic, Amide Local Anesthetic Start: 03-21-2023 Lidocaine (LIDODERM PATCH1 EACH) 1 EACH PATCH Active 1 AVANI TOP DAILY 15 March 21, 2023 11:45am miscellaneous medical supply (Blood Pressure Cuff) [facility] (4 sources) Start: 02-11-2021 miscellaneous medical supply (Blood Pressure Cuff) [facility] Indications: Episodic lightheadedness 2 application by Miscellaneous route 2 (two) times a day Monitor and record BP . 1 each 0 02/11/2021 Active naproxen 500 mg oral tablet (6 sources) Nonsteroidal Anti-inflammatory Drug Start: 12-27-2021 take 1 tablet by mouth twice daily at mealtime naproxen (NAPROSYN) 500 MG tablet Indications: Left epididymitis Take 1 tablet by mouth 2 times daily (with meals). 30 tablet 0 12/27/2021 Active Start: 12-03-2021 End: 12-03-2021 naproxen (NAPROSYN) tablet 5 00 mg Start: 12-25-2017 End: 12-25-2017 naproxen (NAPROSYN) tablet 5 00 mg End: 12-03-2021 Naproxen (NAPROSYN PO) Take by mouth. 0 12/03/2021 Discontinued Naproxen (NAPROS YN PO) Take by mouth. 0 Active omeprazole 20 mg delayed release oral capsule (12 sources) Proton Pump Inhibitor take 1 capsule by mouth once daily omeprazole (PRILOSEC) 20 MG delayed release capsule Take 1 capsule by mouth daily Active ondansetron 4 mg oral tablet (4 sources) Serotonin-3 Receptor Antagonist Start: take 1 tablet by mouth every eight hours as needed for nausea and nausea ondansetron (Zofran) 4 MG tablet Indications: Nausea Take 1 (one) tablet (4 mg total) by mouth every 8 (eight) hours as needed for nausea . 20 tablet 0 01/27/2021 Active Start: 12-25-2017 End: 12-28-2017 take 1 tablet by mouth every six hours as needed ondansetron (ZOFRAN-ODT) 4 MG disintegrating tablet Dissolve 1 (one) tablet (4 mg total) on top of tongue every 6 (six) hours as needed for nausea ESCRIPT Starter Dose Pack dispensed at Discharge. 5 tablet 0 12/25/2017 Active polymyxin b 44450 unt/ml / trimethoprim 1 mg/ml ophthalmic solution (1 source) Dihydrofolate Reductase Inhibitor Antibacterial, Polymyxin-class Antibacterial Start: 09-28-2024 End: 10-05-2024 take 1 drop(s) into the eye(s) every four hours trimethoprim-polymyxin b (POLYTRIM) 84422-7.1 UNIT/ML-% ophthalmic solution Place 1 drop into the left eye every 4 hours for 7 days 3 mL 09/28/2024 10/05/2024 Active Respiratory Therapy Supplies (NEBULIZER/TUBING/M OUTHPIECE) KIT (6 sources) Start: 04-21-2021 Respiratory Therapy Supplies (NEBULIZER/TUBING/MOUTHPI STEPH) KIT Indications: Mild intermittent asthma without complication 1 kit by Does not apply route daily as needed (SOA) 1 kit 04/21/2021 Active rizatriptan 10 mg oral tablet (6 sources) Serotonin-1b and Serotonin-1d Receptor Agonist Start: 08-06-2024 take 1 tablet by mouth once daily as needed rizatriptan (MAXALT) 10 MG tablet Indications: Classical migraine with intractable migraine with aura Take 1 tablet by mouth daily as needed for Migraine May repeat in 2 hours if needed 27 tablet 1 08/06/2024 Active sulfamethoxazole 800 mg / trimethoprim 160 mg oral tablet (3 sources) Dihydrofolate Reductase Inhibitor Antibacterial, Sulfonamide Antimicrobial Start: 12-27-2021 take 1 tablet by mouth twice daily sulfamethoxazole-trimetho prim (BACTRIM DS) 800-160 MG per tablet Indications: Left epididymitis Take 1 tablet by mouth two times a day. 28 tablet 0 12/27/2021 Active Start: 03-28-2018 End: 04-07-2018 take 2 tablets by mouth twice daily sulfamethoxazole-trimethoprim (BACTRIM DS,SEPTRA DS) 800-160 mg per tablet Take 2 (two) tablets by mouth 2 (two) times a day for 10 days. 40 tablet 0 03/28/2018 04/07/2018 Active Start: 03-28-2018 End: 03-28-2018 sulfamethoxazole-trimethopri m (BACTRIM DS,SEPTRA DS) 800-160 mg per tablet 2 tablet topiramate 25 mg oral tablet (2 sources) Start: 02-28-2021 End: 02-28-2022 take 1 tablet by mouth twice daily topiramate (TOPAMAX) 25 MG tablet Take 1 (one) tablet (25 mg total) by mouth 2 (two) times a day . 60 tablet 0 02/28/2021 02/28/2022 Active Completed/Discontinued Medications Medication Drug Class(es) Dates Sig (Normalized) Sig (Original) albuterol 0.833 mg/ml / ipratropium bromide 0.167 mg/ml inhalant solution (1 source) Anticholinergic, beta2-Adrenergic Agonist Start: 06-11-2018 End: 06-11-2018 ipratropium-albute rol (DUO-NEB) 0.5-2.5 mg/3 ml nebulizer solution 3 mL benzonatate 100 mg oral capsule (4 sources) Non-narcotic Antitussive Start: 09-02-2021 End: 12-03-2021 take 1 capsule by mouth three times daily benzonatate (TESSALON) 100 MG capsule Take 1 capsule by mouth 3 times daily. 30 capsule 0 09/02/2021 12/03/2021 Discontinued Start: 06-11-2018 take 1 capsule by [facility] three times daily as needed for cough benzonatate (TESSALON) 100 MG capsule Take 1 (one) capsule (100 mg total) by mouth 3 (three) times a day as needed for cough. 20 capsule 0 06/11/2018 Active Start: 06-11-2018 End: 06-11-2018 benzonatate (TESSALON) capsu le 100 mg doxycycline hyclate 100 mg oral tablet (2 sources) Tetracycline-class Drug Start: 09-02-2021 End: 12-03-2021 take 1 tablet by mouth twice daily doxycycline (VIBRA-TABS) 100 MG tablet Indications: Acute bronchitis, unspecified organism Take 1 tablet by mouth two times a day. 20 tablet 0 09/02/2021 12/03/2021 Discontinued 120 actuat fluticasone propionate 0.044 mg/actuat metered dose inhaler (3 sources) Corticosteroid Start: 01-27-2021 End: 01-27-2022 take 2 puff(s) by mouth twice daily fluticasone propionate (FLOVENT HFA) 44 mcg/actuation inhaler Indications: Shortness of breath , Bronchitis Inhale 2 (two) puffs 2 (two) times a day Rinse mouth after each use . 1 Inhaler 1 01/27/2021 03/14/2021 Discontinued ibuprofen 800 mg oral tablet (11 sources) Nonsteroidal Anti-inflammatory Drug Start: 10-22-2021 End: 12-03-2021 take 1 tablet by mouth every six hours as needed for pain ibuprofen (ADVIL,MOTRIN) 800 MG tablet Indications: Muscle strain of left thigh, initial encounter Take 1 tablet by mouth every 6 hours as needed for Pain. 30 tablet 0 10/22/2021 12/03/2021 Discontinued Start: 01-18-2021 take 1 tablet by lupe th every six hours as needed for pain ibuprofen (ADVIL;MOTRIN) 600 MG tablet Take 1 tablet by mouth every 6 hours as needed for Pain or Fever 40 tablet 01/18/2021 Active levoFLOXacin 500 mg oral tablet (3 sources) Quinolone Antimicrobial Start: 12-03-2021 End: 12-03-2021 levoFLOXacin (LEVAQUIN) tablet 500 mg Start: 12-03-2021 take 1 tablet by lupe th once daily levoFLOXacin (LEVAQUIN) 500 MG tablet Indications: Epididymitis, left Take 1 tablet by mouth daily. 9 tablet 0 12/03/2021 Active perflutren lipid microsphere s (DEFINITY) 0.143 mg/mL solution 0-10 mL of mixture (1 source) Start: 03-16-2021 End: 03-16-2021 perflutren lipid microsphere s (DEFINITY) 0.143 mg/mL solution 0-10 mL of mixture microencapsulated potassium chloride 20 meq extended release oral tablet (1 source) Start: 12-25-2017 End: 12-25-2017 potassium chloride SA (K-DUR,KLOR-CON) CR tablet 40 mEq predniSONE 10 mg oral tablet (2 sources) Start: 10-24-2021 End: 12-03-2021 predniSONE (DELTASONE) 10 MG tablet Indications: Muscle strain of left thigh, initial encounter Take 4 tabs daily for 3 days, 3 tabs daily for 3 days, 2 tabs daily for 3 days, 1 tab daily for 3 days 30 tablet 0 10/24/2021 12/03/2021 Discontinued Start: 09-02-2021 End: 09-07-2021 take 1 tablet by mouth twice daily predniSONE (DELTASONE) 20 MG tablet Take 1 tablet by mouth two times a day for 5 days. 10 tablet 0 09/02/2021 09/07/2021 Active sodium chloride (1 source) Start: 12-25-2017 End: 12-25-2017 sodium chloride (PF) (NS) fl ush 5 mL Problems Active Problems Problem Classification Problem Date Documented Da te Episodic/Chronic Abdominal pain (1 source) Unspecified abdominal pain; Translations: [Unspecified abdominal pain] Onset: 02-13-2024 Episodic Asthma (10 sources) Mild intermittent asthma; Translations: [Mild intermittent asthma, uncomplicated] Onset: 03-15-2021 Chronic Cardiac dysrhythmias (1 source) Palpitations; Translations: [Palpitations] Episodic Chronic obstructive pulmonary disease and bronchiectasis (1 source) Bronchitis Episodic Conditions associated with dizziness or vertigo (1 source) Lightheadedness; Translations: [Dizziness and giddiness] Episodic Conduction disorders (4 sources) Incomplete right bundle branch block; Translations: [Unspecified right bundle-branch block] Onset: 08-07-2024 08-07-2024 Chronic Epilepsy; convulsions (8 sources) Seizure disorder; Translations: [Epilepsy, unspecified, not intractable, without status epilepticus] Onset: 07-27-2024 08-06-2024 Chronic Fluid and electrolyte disorders (1 source) Hypokalemia; Translations: [Hypokalemia] Onset: 02-13-2024 Episodic Headache; including migraine (6 sources) Refractory migraine with aura; Translations: [Migraine with aura, intractable, without status migrainosus] Onset: 04-21-2021 04-21-2021 Chronic Headache; including migraine (2 sources) Headache; including migraine; Translations: [HEADACHE, UNSPECIFIED] Onset: 11-17-2022 Inflammation; infection of eye (except that caused by tuberculosis or sexually transmitteddisease) (2 sources) Viral conjunctivitis; Translations: [Viral conjunctivitis, unspecified] Onset: 09-28-2024 09-28-2024 Episodic Malaise and fatigue (7 sources) Chronic fatigue, unspecified; Translations: [Fatigue] Onset: 10-19-2022 08-06-2024 Chronic Nonspecific chest pain (9 sources) Left sided chest pain; Translations: [Chest pain, unspecified] Onset: 08-18-2024 08-06-2024 Episodic Other connective tissue disease (1 source) Pain in left foot; Translations: [Pain in left foot] Onset: 02-11-2024 Episodic Other lower respiratory disease (5 sources) Dyspnea; Translations: [Shortness of breath] Episodic Other screening for suspected conditions (not mental disorders or infectious disease) (6 sources) Encounter for screening for diabetes mellitus; Translations: [Encounter for screening for diseases of the blood and blood-forming organs and certain disorders involving the immune mechanism] Onset: 10-19-2022 Episodic Other upper respiratory infections (2 sources) Upper respiratory infection; Translations: [Acute upper respiratory infection, unspecified] Onset: 09-28-2024 09-28-2024 Episodic Residual codes; unclassified (1 source) Pain, unspecified; Translations: [Pain, unspecified] Onset: 10-28-2024 Episodic Skin and subcutaneous tissue infections (2 sources) Cellulitis of right finger; Translations: [Cellulitis of right finger] Onset: 03-18-2018 Episodic Substance-related disorders (12 sources) Tobacco dependence syndrome; Translations: [Nicotine dependence, unspecified, uncomplicated] Onset: 03-15-2021 Chronic Unclassified (2 sources) ENCOUNTER FOR PRE-EMPLOYMENT EXAM / Z02.1(ICD-10) Onset: 08-13-2018 Unclassified (1 source) Low back pain, unspecified; Translations: [Low back pain, unspecified] Onset: 09-21-2021 Unclassified (1 source) left foot pain Onset: 02-11-2024 Past or Other Problems Problem Classification Problem Date Documented Date Episodic/Chronic Acute bronchitis (2 sources) Acute bronchitis; Translations: [Acute bronchitis, unspecified] Onset: 09-02-2021 Episodic Blindness and vision defects (7 sources) Other visual disturbances; Translations: [Visual disturbance] Onset: 02-13-2024 08-06-2024 Episodic Contraceptive and procreative management (4 sources) Contraception status; Translations: [Encounter for sterilization] Onset: 02-17-2022 Episodic Inflammatory conditions of male genital organs (3 sources) Epididymitis; Translations: [Epididymitis] Onset: 01-16-2022 Episodic Malaise and fatigue (1 source) Weakness; Translations: [WEAKNESS] Onset: 11-03-2022 Episodic Other aftercare (1 source) notary public (current) use of antibiotics; Translations: [notary public (current) use of antibiotics] Onset: 02-17-2022 Episodic Other aftercare (1 source) notary public (current) use of non-steroidal anti-inflammatories (NSAID); Translations: [PRISON (CURRENT) USE OF NON-STEROIDAL NON-INFLA] Onset: 10-19-2022 Episodic Other aftercare (1 source) Other skilled nursing (current) drug therapy; Translations: [OTHER PRISON (CURRENT) DRUG THERAPY] Onset: 10-15-2022 Episodic Other lower respiratory disease (1 source) Shortness of breath; Translations: [Shortness of breath] Onset: 07-16-2021 Episodic Other male genital disorders (2 sources) Cyst of epididymis; Translations: [Cyst of epididymis] Onset: 01-16-2022 Episodic Other male genital disorders (1 source) Adult hydrocele; Translations: [Hydrocele, unspecified] Onset: 01-16-2022 01-16-2022 Episodic Other male genital disorders (1 source) Cyst of epididymis; Translations: [Cyst of epididymis] Onset: 01-16-2022 Episodic Other male genital disorders (1 source) Hydrocele, unspecified; Translations: [Hydrocele, unspecified] Onset: 01-16-2022 Episodic Other male genital disorders (1 source) Right testicular pain; Translations: [RIGHT TESTICULAR PAIN] Onset: 11-17-2022 Episodic Other male genital disorders (1 source) Left testicular pain; Translations: [LEFT TESTICULAR PAIN] Onset: 11-17-2022 Episodic Other male genital disorders (1 source) Other specified disorders of the male genital organs; Translations: [OTHER SPECIFIED DISORDERS OF THE MALE GENITAL ORGA] Onset: 11-17-2022 Episodic Other male genital disorders (6 sources) Pain of left testicle; Translations: [Left testicular pain] Onset: 11-17-2022 08-06-2024 Episodic Other male genital disorders (6 sources) Pain of right testicle; Translations: [Right testicular pain] Onset: 11-17-2022 08-06-2024 Episodic Other non-traumatic joint disorders (1 source) Pain in left knee; Translations: [Pain in left knee] Onset: 10-24-2021 Episodic Residual codes; unclassified (1 source) Disorientation, unspecified; Translations: [DISORIENTATION, UNSPECIFIED] Onset: 11-17-2022 Episodic Spondylosis; intervertebral disc disorders; other back problems (2 sources) Dorsalgia, unspecified; Translations: [Low back pain] Onset: 09-21-2021 Episodic Sprains and strains (1 source) Strain of unspecified muscles, fascia and tendons at thigh level, left thigh, initial encounter; Translations: [Strain of unspecified muscles, fascia and tendons at thigh level, left thigh, initial encounter] Onset: 10-24-2021 Episodic Unclassified (2 sources) Paronychia of finger of right hand Unclassified (1 source) ENCOUNTER FOR PRE-EMPLOYMENT EXAM; Translations: [ENCOUNTER FOR PRE-EMPLOYMENT EXAM] Onset: 08-12-2018 Viral infection (1 source) Viral infection, unspecified; Translations: [VIRAL INFECTION, UNSPECIFIED] Onset: 10-15-2022 Episodic Results Test Name Value Interpretation Reference Range Facility XR RIBS RT 3 VWS W PA CHESTo n 10-28-2024 XR RIBS RT 3 VWS W PA CHEST XR RIBS RT 3 VWS W PA CHEST CLINICAL HISTORY: Fall injury and pain Comparison: None Views: 5 FINDINGS: * No acute infiltrate. No volume loss nor consolidation. There is no pleural effusion, pneumothorax, nor volume loss. Heart and mediastinal structures are unremarkable. Pulmonary vasculature stable. No displaced rib fracture nor pneumothorax IMPRESSION: * Unremarkable chest and rib series Finalized by Antoni Freeman MD on 10/28/2024 10:19 AM [facility] XR SPINE THORACIC 3 VWSon XR SPINE THORACIC 3 VWS XR SPINE THORACIC 3 VWS CLINICAL INFORMATION: Pain TECHNIQUE: Thoracic spine radiographs performed. Three images acquired. COMPARISON: No relevant prior studies available. FINDINGS: * Disc spaces and vertebral bodies are unremarkable * No fracture nor listhesis * Spine alignment is satisfactory * Visualized lungs are clear IMPRESSION: * Unremarkable thoracic spine series Finalized by Antoni Freeman MD on 10/28/2024 10:18 AM Normal [facility] Exercise stress testOrdered By: Jose Rafael Salomon on 2024 Baseline Diastolic BP 85 mmHg [facility] Baseline HR 72 BPM [facility] Baseline ST Depression 0 mm [facility] Baseline Systolic BP 132 mmHg [facility] Exercise Duration Seconds 5 sec [facility] Exercise Duration Time 6 min [facility] Stress Diastolic BP 76 mmHg [facility] Stress Estimated Workload 7.3 METS [facility] Stress Peak HR 160 BPM [facility] Stress Percent HR Achieved 87 % [facility] Stress Rate Pressure Product 67125 BPM*mmHg [facility] Stress ST Depression 0 mm [facility] Stress Systolic BP 159 mmHg [facility] Stress Target HR 183 bpm [facility] Exercise stress teston 08-19 ECG: Resting ECG demonstrates normal sinus rhythm. ECG: The stress ECG was negative for ischemia. Stress Test: A [place] protocol stress test was performed. Overall, the patient's exercise capacity was below average for their age. The patient reached stage 4 of the protocol and was stressed for 6 min and 5 sec. Hemodynamics are adequate for diagnosis. Blood pressure demonstrated a normal response and heart rate demonstrated a normal response to stress. This is a normal symptom limited maximal treadmill stress test with below average functional capacity The patient had chest discomfort early into exercise without EKG changes and chest discomfort resolved during stress Patient had left chest numbness spontaneously occur after 5 minutes of recovery and spontaneous resolved at discharge No EKG evidence of ischemia If clinically warranted can consider imaging stress test in light of exercise-induced chest discomfort Resting ECG ECG is normal. The ECG shows sinus rhythm. Resting ECG shows no ST-segment deviation. Stress Findings A [place] protocol stress test was performed. Overall, the patient's exercise capacity was below average for their age. The patient reached stage 4 of the protocol and was stressed for 6 min and 5 sec. The patient reported chest discomfort during the stress test. Onset of symptoms occurred at stage 1 of the protocol. Symptoms began at minute 0:29 during stress and ended during stress. had left chest numbness starting 5:27 into recovery that resolved. The test was stopped because the patient experienced fatigue. The patient reached the end of the protocol. Hemodynamics are adequate for diagnosis. Blood pressure demonstrated a normal response and heart rate demonstrated a normal response to stress. Stress ECG There were no arrhythmias during stress. No ST deviation was noted. There were no noted arrhythmias during recovery. There were no ST changes during recovery. The stress ECG was negative for ischemia. [facility] CV STRESS ONLY Exercise stress teston 08-18 Radiology Study observation (narrative) [facility] CBC with Auto Differentialon 08-06-2024 Basophils (Bld) [#/Vol] 0.02 10*3/uL [facility] Basophils/100 WBC (Bld) 0 % 0 - 2 % [facility] Eosinophils (Bld) [#/Vol] 0.17 10*3/uL [facility] Eosinophils/100 WBC (Bld) 2 % 0 - 5 % [facility] Erythrocyte distribution width (RBC) [Ratio] 13.2 % 12.1 - 15.2 % [facility] Hematocrit (Bld) [Volume fraction] 42.9 % 41.0 - 53.0 % [facility] Hemoglobin (Bld) [Mass/Vol] 14.8 g/dL 13.5 - 17.5 g/dL [facility] Immature granulocytes (Bld) [#/Vol] 0.02 10*3/uL [facility] Immature granulocytes/100 WBC (Bld) 0 % 0 - 5 % [facility] Lymphocytes/100 WBC (Bld) 33 % 13 - 44 % [facility] Lymphocytes/100 WBC (Bld) 2.28 % [facility] MCH (RBC) [Entitic mass] 29.2 pg 26.0 - 34.0 pg [facility] MCHC (RBC) [Mass/Vol] 34.5 g/dL 31.0 - 37.0 g/dL [facility] MCV (RBC) [Entitic vol] 84.8 fL 80.0 - 100.0 fL [facility] Monocytes/100 WBC (Bld) 8 % 5 - 9 % [facility] Mon[facility]/100 WBC (Bld) 0.57 % [facility] Neutrophils/100 WBC (Bld) 57 % 39 - 75 % [facility] Platelet mean volume (Bld) [Entitic vol] 9.4 fL 6.0 - 12.0 fL [facility] Platelets (Bld) [#/Vol] 261 10*3/uL [facility] RBC (Bld) [#/Vol] 5.06 10*6/uL 4.50 - 5.90 m/uL [facility] Segmented neutrophils/100 WBC (Bld) 3.89 % [facility] WBC other (Bld) [#/Vol] 7.0 [facility] CBC with Diffon 08-06-2024 Abs. Basophil 0.02 k/uL Normal 0.00-0.20 [facility] Comment on above: Performed By: #### C P, CDP, TSHX #### [facility] [address] [place] [address] Bilingual Operator: Digna Adams MD #### LIPR #### [place] [id number] Bilingual Operator: Terry Coley MD Abs.Imm.Granulocyte 0.02 k/uL Normal 0.00-0.30 [facility] Comment on above: Performed By: #### C P, CDP, TSHX #### [facility] [address] [place] [phone] Bilingual Operator: Digna Adams MD #### LIPR #### [place] [phone] Bilingual Operator: Terry Coley MD Abs.Neutrophil (Seg) 3.89 k/uL Normal 2.1-6.5 [facility] Comment on above: Performed By: #### C P, CDP, TSHX #### [facility] [address] [place] [address] Bilingual Operator: Digna Adams MD #### LIPR #### [place] [phone] Bilingual Operator: Terry Coley MD Basophils/100 WBC (Bld) 0 % Normal 0-2 [facility] Comment on above: Performed By: #### C P, CDP, TSHX #### [facility] [address] [place], [place] [id number] Bilingual Operator: Digna Adams MD #### LIPR #### [address] [phone] Bilingual Operator: Terry Coley MD Eosinophils (Bld) [#/Vol] 0.17 10*3/uL Normal 0.00-0.40 [facility] Comment on above: Performed By: #### C P, CDP, TSHX #### [facility] [address] [place] [phone] ( Bilingual Operator: Digna Adams MD #### LIPR #### [place] [phone] Bilingual Operator: Terry Coley MD Eosinophils/100 WBC (Bld) 2 % Normal 0-5 [facility] Comment on above: Performed By: #### C P, CDP, TSHX #### [facility] [address] [place] [phone] Bilingual Operator: Digna Adams MD #### LIPR #### [place] [address] Bilingual Operator: Terry Coley MD Erythrocyte distribution width (RBC) [Ratio] 13.2 % Normal 12.1-15.2 [facility] Comment on above: Performed By: #### C P, CDP, TSHX #### [facility] [address] [place] [phone] Bilingual Operator: Digna Adams MD #### LIPR #### [address] [phone] Bilingual Operator: Terry Coley MD Hematocrit (Bld) [Volume fraction] 42.9 % Normal 41.0-53.0 [facility] Comment on above: Performed By: #### C P, CDP, TSHX #### [facility] [address] [place] [address] Bilingual Operator: Digna Adams MD #### LIPR #### [address] [phone] Bilingual Operator: Terry oCley MD Hemoglobin (Bld) [Mass/Vol] 14.8 g/dL Normal 13.5-17.5 [facility] Comment on above: Performed By: #### C P, CDP, TSHX #### [facility] [address] [place] [address] ( Bilingual Operator: Digna Adams MD #### LIPR #### [place] [phone] ( Bilingual Operator: Terry Coley MD Immature granulocytes/100 WBC (Bld) 0 % Normal 0-5 [facility] Comment on above: Performed By: #### C P, CDP, TSHX #### [facility] [address] [place] [address] ( Bilingual Operator: Digna Adams MD #### LIPR #### [place] [address] Bilingual Operator: Terry Coley MD Lymphocytes (Bld) [#/Vol] 2.28 10*3/uL Normal 1.00-4.80 [facility] Comment on above: Performed By: #### C P, CDP, TSHX #### [facility] [address] [place] [address] Bilingual Operator: Digna Adams MD #### LIPR #### [address] [phone] Bilingual Operator: Terry Coley MD Lymphocytes/100 WBC (Bld) 33 % Normal 13-44 [facility] Comment on above: Performed By: #### C P, CDP, TSHX #### [facility] [address] [place] [address] Bilingual Operator: Digna Adams MD #### LIPR #### [address] [phone] Bilingual Operator: Terry Coley MD MCH (RBC) [Entitic mass] 29.2 pg Normal 26.0-34.0 [facility] Comment on above: Performed By: #### C P, CDP, TSHX #### [facility] [address] [place] [address] Bilingual Operator: Digna Adams MD #### LIPR #### [address] [phone] Bilingual Operator: Terry Coley MD MCHC (RBC) [Mass/Vol] 34.5 g/dL Normal 31.0-37.0 [facility] Comment on above: Performed By: #### C P, CDP, TSHX #### [facility] [address] [place] [address] Bilingual Operator: Digna Adams MD #### LIPR #### [address] [phone] Bilingual Operator: Terry Coley MD MCV (RBC) [Entitic vol] 84.8 fL Normal 80.0-100.0 [facility] Comment on above: Performed By: #### C P, CDP, TSHX #### [facility] [address] [place] [address] Bilingual Operator: Digna Adams MD #### LIPR #### [address] [phone] Bilingual Operator: Terry Coley MD Monocytes (Bld) [#/Vol] 0.57 10*3/uL Normal 0.00-1.00 [facility] Comment on above: Performed By: #### C P, CDP, TSHX #### [facility] [address] [place] [address] Bilingual Operator: Digna Adams MD #### LIPR #### [address] [phone] Bilingual Operator: Terry Coley MD Monocytes/100 WBC (Bld) 8 % Normal 5-9 [facility] Comment on above: Performed By: #### C P, CDP, TSHX #### [facility] [address] [place] [address] Bilingual Operator: Digna Adams MD #### LIPR #### [address] [phone] Bilingual Operator: Terry Coley MD Neutrophil (Seg) 57 % Normal 39-75 [facility] Comment on above: Performed By: #### C P, CDP, TSHX #### [facility] [address] [place], [place] [phone] Bilingual Operator: Digna Adams MD #### LIPR #### [address] [phone] Bilingual Operator: Terry Coley MD Platelet mean volume (Bld) [Entitic vol] 9.4 fL Normal 6.0-12.0 [facility] Comment on above: Performed By: #### C P, CDP, TSHX #### [facility] [address] [place], [place] [phone] Bilingual Operator: Digna Adams MD #### LIPR #### [address] [address] Bilingual Operator: Terry Coley MD Platelets (Bld) [#/Vol] 261 10*3/uL Normal 140-450 [facility] Comment on above: Performed By: #### C P, CDP, TSHX #### [facility] [address] [place] [address] Bilingual Operator: Digna Adams MD #### LIPR #### [address] [phone] Bilingual Operator: Terry Coley MD RBC (Bld) [#/Vol] 5.06 10*6/uL Normal 4.50-5.90 [facility] Comment on above: Performed By: #### C P, CDP, TSHX #### [facility] [address] [place], [place] [phone] Bilingual Operator: Digna Adams MD #### LIPR #### [address] [address] Bilingual Operator: Terry Coley MD WBC (Bld) [#/Vol] 7.0 10*3/uL Normal 3.5-11.0 [facility] Comment on above: Performed By: #### C P, CDP, TSHX #### [facility] [address] [place], [place] [phone] Bilingual Operator: Digna Adams MD #### LIPR #### [address] [address] Bilingual Operator: Terry Coley MD Comp Metabolic Profon 2023 Albumin [Mass/Vol] 4.5 g/dL Normal 3.5-5.2 [facility] Comment on above: Performed By: #### C P, CDP, TSHX #### [facility] [address] [place], [place] [phone] Bilingual Operator: Digna Adams MD #### LIPR #### [address] [phone] Bilingual Operator: Terry Coley MD Alkaline Phos 80 U/L Normal 40-129 [facility] Comment on above: Performed By: #### C P, CDP, TSHX #### [facility] [address] [place], [place] [phone] Bilingual Operator: Digna Adams MD #### LIPR #### [facility] [address] [place] [id number] Bilingual Operator: Terry Coley MD ALT [Catalytic activity/Vol] 21 U/L Normal 5-41 [facility] Comment on above: Performed By: #### C P, CDP, TSHX #### [facility] [address] [place] [address] Bilingual Operator: Digna Adams MD #### LIPR #### [address] [phone] Bilingual Operator: Terry Coley MD Anion gap [Moles/Vol] 8 mmol/L Low 9-17 [facility] Comment on above: Performed By: #### C P, CDP, TSHX #### [facility] [address] [place], [place] [phone] Bilingual Operator: Digna Adams MD #### LIPR #### [address] [address] Bilingual Operator: Terry Coley MD AST [Catalytic activity/Vol] 21 U/L Normal <40 [facility] Comment on above: Performed By: #### C P, CDP, TSHX #### [facility] [address] [place], [place] [phone] Bilingual Operator: Digna Adams MD #### LIPR #### [address] [address] Bilingual Operator: Terry Coley MD Bilirubin [Mass/Vol] 0.4 mg/dL Normal 0.3-1.2 [facility] Comment on above: Performed By: #### C P, CDP, TSHX #### [facility] [address] [place], [place] [phone] Bilingual Operator: Digna Adams MD #### LIPR #### [facility] [address] [place] [address] [id number] Bilingual Operator: Terry Coley MD BUN/CRE Ratio 14 Normal 9-20 [facility] Comment on above: Performed By: #### C P, CDP, TSHX #### [facility] [address] [place], [place] [phone] Bilingual Operator: Digna Adams MD #### LIPR #### [address] [phone] Bilingual Operator: Terry Coley MD Calcium [Mass/Vol] 9.5 mg/dL Normal 8.6-10.4 [facility] Comment on above: Performed By: #### C P, CDP, TSHX #### [facility] [address] [place], [place] [phone] Bilingual Operator: Digna Adams MD #### LIPR #### [address] [phone] Bilingual Operator: Terry Coley MD Chloride [Moles/Vol] 103 mmol/L Normal 98-107 [facility] Comment on above: Performed By: #### C P, CDP, TSHX #### [facility] [address] [place], [place] [phone] Bilingual Operator: Digna Adams MD #### LIPR #### [address] [phone] Bilingual Operator: Terry Coley MD CO2 [Moles/Vol] 30 mmol/L Normal 20-31 [facility] Comment on above: Performed By: #### C P, CDP, TSHX #### [facility] [address] [place], [place] [phone] Bilingual Operator: Digna Adams MD #### LIPR #### [facility] [address] [place], [place] [phone] Bilingual Operator: Terry Coley MD Creatinine [Mass/Vol] 0.8 mg/dL Normal 0.7-1.2 [facility] Comment on above: Performed By: #### C P, CDP, TSHX #### [facility] [address] [place], [place] [phone] Bilingual Operator: Digna Adams MD #### LIPR #### [facility] [address] [place], [place] [phone] Bilingual Operator: Terry Coley MD GFR/1.73 sq M.predicted among non-blacks MDRD (S/P/Bld) [Vol rate/Area] mL/min/{1.73_m2} Normal >60 [facility] Comment on above: Result Comment: These results are not intended for use in patients <18 years of age. eGFR results are calculated without a race factor using the 2020 CKD-EPI equation. Careful clinical correlation is recommended, particularly when comparing to results calculated using previous equations. The CKD-EPI equation is less accurate in patients with extremes of muscle mass, extra-renal metabolism of creatine, excessive creatine ingestion, or following therapy that affects renal tubular secretion. Performed By: #### C P, CDP, TSHX #### [facility] [address] [place], [place] [phone] Bilingual Operator: Digna Adams MD #### LIPR #### [facility] [address] [place], [place] [phone] Bilingual Operator: Terry Coley MD Glucose [Mass/Vol] 83 mg/dL Normal 70-99 [facility] Comment on above: Performed By: #### C P, CDP, TSHX #### [facility] [address] [place], [place] [phone] Bilingual Operator: Digna Adams MD #### LIPR #### [facility] [address] [place], [place] [phone] Bilingual Operator: Terry Coley MD Potassium [Moles/Vol] 4.1 mmol/L Normal 3.7-5.3 [facility] Comment on above: Performed By: #### C P, CDP, TSHX #### [facility] [address] [place], [place] [phone] Bilingual Operator: Digna Adams MD #### LIPR #### [place] [address] [place], [place] [phone] Bilingual Operator: Terry Coley MD Protein [Mass/Vol] 7.5 g/dL Normal 6.4-8.3 [facility] Comment on above: Performed By: #### C P, CDP, TSHX #### [facility] [address] [place], [place] [phone] Bilingual Operator: Digna Adams MD #### LIPR #### [facility] [address] [place] [address] [phone] Bilingual Operator: Terry Coley MD Sodium [Moles/Vol] 141 mmol/L Normal 135-144 [facility] Comment on above: Performed By: #### C P, CDP, TSHX #### [facility] [address] [place], [place] [phone] Bilingual Operator: Digna Adams MD #### LIPR #### [facility] [address] [place], [place] [phone] Bilingual Operator: Terry Coley MD Urea nitrogen [Mass/Vol] 11 mg/dL Normal 6-20 [facility] Comment on above: Performed By: #### C P, CDP, TSHX #### [facility] [address] [place], [place] [phone] Bilingual Operator: Digna Adams MD #### LIPR #### [facility] [address] [place] [address] Bilingual Operator: Terry Coley MD [facility] Metabolic [facility] 08-06-2024 Albumin [Mass/Vol] 4.5 g/dL 3.5 - 5.2 g/dL [facility] ALP [Catalytic activity/Vol] 80 U/L 40 - 129 U/L [facility] ALT [Catalytic activity/Vol] 21 U/L 5 - 41 U/L [facility] Anion gap [Moles/Vol] 8 mmol/L Low 9 - 17 mmol/L [facility] AST [Catalytic activity/Vol] 21 U/L NINF - 40 U/L [facility] Bilirubin [Mass/Vol] 0.4 mg/dL 0.3 - 1 .2 mg/dL [facility] Calcium [Mass/Vol] 9.5 mg/dL 8.6 - 10. 4 mg/dL [facility] Chloride [Moles/Vol] 103 mmol/L 98 - 10 7 mmol/L [facility] CO2 [Moles/Vol] 30 mmol/L 20 - 31 mmol/L [facility] Creatinine [Mass/Vol] 0.8 mg/dL 0.7 - 1.2 mg/dL [facility] Est, Glom Filt Rate - PINF [facility] Comment on above: These results are not intended for use in patients <18 years of age. eGFR results are calculated without a race factor using the 2020 CKD-EPI equation. Careful clinical correlation is recommended, particularly when comparing to results calculated using previous equations. The CKD-EPI equation is less accurate in patients with extremes of muscle mass, extra-renal metabolism of creatine, excessive creatine ingestion, or following therapy that affects renal tubular secretion. Glucose [Mass/Vol] 83 mg/dL 70 - 99 mg/dL [facility] Interpretation and review of laboratory results Abnormal [facility] Potassium [Moles/Vol] 4.1 mmol/L 3.7 - 5.3 mmol/L [facility] Protein [Mass/Vol] 7.5 g/dL 6.4 - 8.3 g/dL [facility] Sodium [Moles/Vol] 141 mmol/L 135 - 144 mmol/L [facility] Urea nitrogen [Mass/Vol] 11 mg/dL 6 - 20 mg/dL [facility] Urea nitrogen/Creatinine [Mass ratio] 14 mg/mg 9 - 20 [facility] Lipid Panelon 08-06-2024 Cholesterol [Mass/Vol] 147 mg/dL 0 - 199 mg/dL [facility] Comment on above: Cholesterol Guidelines: <200 Desirable 200-240 Borderline >240 Undesirable Cholesterol in HDL [Mass/Vol] 33 mg/dL Low 40 - PINF mg/dL [facility] Comment on above: HDL Guidelines: <40 Undesirable 40-59 Borderline >59 Desirable Cholesterol in LDL [Mass/Vol] 91 mg/dL 0 - 100 mg/dL [facility] Comment on above: LDL Guidelines: <100 Desirable 100-129 Near to/above Desirable 130-159 Borderline >159 Undesirable Direct (measured) LDL and calculated LDL are not interchangeable tests. Cholesterol in VLDL [Mass/Vol] 23 mg/dL 1 - 30 mg/dL [facility] Cholesterol.total/Ch olesterol in HDL [Mass ratio] 4.5 {ratio} [facility] Interpretation and review of laboratory results Abnormal [facility] Triglyceride [Mass/Vol] 114 mg/dL NINF - 150 mg/dL [facility] Comment on above: Triglyceride Guidelines: <150 Desirable 150-199 Borderline 200-499 High >499 Very high Based on AHA Guidelines for fasting triglyceride, June 2012. [facility] Lipid Profileon 08-06-2024 Cholesterol [Mass/Vol] 147 mg/dL Normal 0-199 [facility] Comment on above: Result Comment: Cholesterol Guidelines: <200 Desirable 200-240 Borderline >240 Undesirable Performed By: #### C P, CDP, TSHX #### [facility] [address] [place] [address] Bilingual Operator: Digna Adams MD #### LIPR #### [facility] [employer] [facility] [place] [address] Bilingual Operator: Terry Coley MD Cholesterol in HDL [Mass/Vol] 33 mg/dL Low >40 [facility] Comment on above: Result Comment: HDL Guidelines: <40 Undesirable 40-59 Borderline >59 Desirable Performed By: #### C P, CDP, TSHX #### [facility] [address] [place] [address] Bilingual Operator: Digna Adams MD #### LIPR #### [address] [phone] Bilingual Operator: Terry Coley MD Cholesterol in LDL [Mass/Vol] 91 mg/dL Normal 0-100 [facility] Comment on above: Result Comment: LDL Guidelines: <100 Desirable 100-129 Near to/above Desirable 130-159 Borderline >159 Undesirable Direct (measured) LDL and calculated LDL are not interchangeable tests. Performed By: #### C P, CDP, TSHX #### [facility] [address] [place], [place] [phone] Bilingual Operator: Digna Adams MD #### LIPR #### [address] [phone] Bilingual Operator: Terry Coley MD Cholesterol in VLDL [Mass/Vol] 23 mg/dL Normal 1-30 [facility] Comment on above: Performed By: #### C P, CDP, TSHX #### [facility] [address] [place], [place] [id number] Bilingual Operator: Digna Adams MD #### LIPR #### [address] [address] Bilingual Operator: Terry Coley MD Cholesterol.total/Ch olesterol in HDL [Mass ratio] 4.5 {ratio} Normal [facility] Comment on above: Performed By: #### C P, CDP, TSHX #### [facility] [address] [place], [place] [id number] Bilingual Operator: Digna Adams MD #### LIPR #### [address] [id number] Bilingual Operator: Terry Coley MD Triglyceride [Mass/Vol] 114 mg/dL Normal <150 [facility] Comment on above: Result Comment: Triglyceride Guidelines: <150 Desirable 150-199 Borderline 200-499 High >499 Very high Based on AHA Guidelines for fasting triglyceride, June 2012. Performed By: #### C P, CDP, TSHX #### [facility] [address] [place] [address] Bilingual Operator: Digna Adams MD #### LIPR #### [address] [id number] Bilingual Operator: Terry Coley MD TSH With Reflex Ft4on 2023 TSH Qn 1.07 m[IU]/L [facility] TSH w/reflex to FT4on 2023 Thyroid Stim. Horm. 1.07 uIU/mL Normal 0.30-5.00 [facility] Comment on above: Performed By: #### C P, CDP, TSHX #### [facility] [address] [place] [address] Bilingual Operator: Digna Adams MD #### LIPR #### [address] [id number] Bilingual Operator: Terry Coley MD CBC WITH DIFFon 02-13-2024 BASOPHIL # 0.00 x10???3/uL Normal 0.00-0.20 [facility] Comment on above: Performed By: #### L [id number] #### [facility] [address] [place] [address] [place] Basophils/100 WBC (Bld) 1 % Normal 0-2 [facility] Comment on above: Performed By: #### L [id number] #### [facility] [address] [place] [address] [place] EOSINOPHIL # 0.20 x10???3/uL Normal 0.00-0.60 [facility] Comment on above: Performed By: #### L [id number] #### [facility] [address] [place] [address] [place] Eosinophils/100 WBC (Bld) 2 % Normal 0-5 [facility] Comment on above: Performed By: #### L [id number] #### [facility] [address] [place] [address] [place] Erythrocyte distribution width (RBC) [Ratio] 13.8 % Normal 11.5-14.0 [facility] Comment on above: Performed By: #### L [id number] #### [facility] [address] [place] [address] [place] Hematocrit (Bld) [Volume fraction] 40.9 % Normal 36.0-46.0 [facility] Comment on above: Performed By: #### L [id number] #### [facility] [address] [place] [address] [place] Hemoglobin (Bld) [Mass/Vol] 14.3 g/dL Normal 13.9-16.3 [facility] Comment on above: Performed By: #### L [id number] #### [facility] [address] [place] [address] [place] LYMPHOCYTE # 3.90 x10???3/uL High 1.10-3.80 [facility] Comment on above: Performed By: #### L [id number] #### [facility] [address] [place] [address] [place] Lymphocytes/100 WBC (Bld) 42 % Normal 19-46 [facility] Comment on above: Performed By: #### L [id number] #### [facility] [address] [place] [address] [place] MCH (RBC) [Entitic mass] 30.5 pg Normal 25.4-34.0 [facility] Comment on above: Performed By: #### L [id number] #### [facility] [address] [place] [address] [place] MCHC (RBC) [Mass/Vol] 35.1 g/dL Normal 30.0-37.0 [facility] Comment on above: Performed By: #### L [id number] #### [facility] [address] [place] [address] [place] MCV (RBC) [Entitic vol] 87.1 fL Normal 80.0-100.0 [facility] Comment on above: Performed By: #### L [id number] #### [facility] [address] [place] [address] [place] MONOCYTE # 0.80 x10???3/uL Normal 0.10-0.80 [facility] Comment on above: Performed By: #### L [id number] #### [facility] [address] [place] [address] [place] Monocytes/100 WBC (Bld) 9 % Normal 4-12 [facility] Comment on above: Performed By: #### L [id number] #### [facility] [address] [place] [address] [place] NEUTROPHIL # 4.40 x10???3/uL Normal 1.80-7.50 [facility] Comment on above: Performed By: #### L [id number] #### [facility] [address] [place] [address] [place] Neutrophils/100 WBC (Bld) 47 % Normal 41-69 [facility] Comment on above: Performed By: #### L [id number] #### [facility] [address] [place] [address] [place] Platelet mean volume (Bld) [Entitic vol] 7.7 fL Normal 7.5-11.5 [facility] Comment on above: Performed By: #### L [id number] #### [facility] [address] [place] [address] [place] PLATELETS AUTOMATED 235 x10???3/uL Normal 130-400 [facility] Comment on above: Performed By: #### L [id number] #### [facility] [address] [place] [address] [place] RBC AUTOMATED 4.70 x10???6/uL Normal 4.30-5.90 [facility] Comment on above: Performed By: #### L [id number] #### [facility] [address] [place] [address] [place] WBC AUTOMATED CORRECTED 9.4 x10???3/uL Normal 4.5-11.5 [facility] Comment on above: Performed By: #### L [id number] #### [facility] [address] [place] [address] [place] COMPREHENSIVE METABOLIC PANE L, NON-FASTINGon 02-13-2024 Albumin [Mass/Vol] 4.4 g/dL Normal 3.5-5.0 [facility] Comment on above: Performed By: #### L [id number] #### [facility] [address] [place] [address] [place] Albumin/Globulin [Mass ratio] 1.5 {ratio} Normal 1.5-2.5 [facility] Comment on above: Performed By: #### L [id number] #### [facility] [address] [place] [address] [place] ALP [Catalytic activity/Vol] 58 U/L Normal 38-126 [facility] Comment on above: Performed By: #### L [id number] #### [facility] [address] [place] [address] US ALT [Catalytic activity/Vol] 37 U/L Normal <50 [facility] Comment on above: Performed By: #### L [id number] #### [facility] [address] [place] [address] [place] Anion gap [Moles/Vol] 10 mmol/L Normal 5-19 [facility] Comment on above: Performed By: #### L [id number] #### [facility] [address] [place] AST [Catalytic activity/Vol] 32 U/L Normal 17-59 [facility] Comment on above: Performed By: #### L [id number] #### [facility] [address] [place] [address] [place] Bilirubin [Mass/Vol] 0.4 mg/dL Normal 0.2-1.3 [facility] Comment on above: Performed By: #### L [id number] #### [facility] [address] [place] [address] [place] Calcium [Mass/Vol] 9.1 mg/dL Normal 8.4-10.2 [facility] Comment on above: Performed By: #### L [id number] #### [facility] [address] [place] [address] [place] Chloride [Moles/Vol] 107 mmol/L Normal 98-107 [facility] Comment on above: Performed By: #### L [id number] #### [facility] [address] [place] [address] [place] CO2 [Moles/Vol] 24 mmol/L Normal 22-30 [facility] Comment on above: Performed By: #### L [id number] #### [facility] [address] [place] [address] [place] Creatinine [Mass/Vol] 0.81 mg/dL Normal 0.66-1.20 [facility] Comment on above: Performed By: #### L [id number] #### [facility] [address] [place] [address] [place] GFR/1.73 sq M.predicted MDRD (S/P/Bld) [Vol rate/Area] mL/min/{1.73_m2} Normal >60 [facility] Comment on above: Performed By: #### L [id number] #### [facility] [address] [place] [address] [place] Glucose [Mass/Vol] 109 mg/dL High 74-106 [facility] Comment on above: Performed By: #### L [id number] #### [facility] [address] [place] [address] [place] Narrative Estimated Glomerular Filtration Rate (eGFR) is calculated using the CKD-EPI (2020) equation, intended for patients 18 years of age and older. If gender is not documented or unknown , there will be no eGFR calculation. Abnormal [facility] Comment on above: Performed By: #### L [id number] #### [facility] [address] [place] [address] [place] Potassium [Moles/Vol] 3.1 mmol/L Low 3.5-5.1 [facility] Comment on above: Performed By: #### L [id number] #### [facility] [address] [place] [address] [place] Protein [Mass/Vol] 7.3 g/dL Normal 6.3-8.2 [facility] Comment on above: Performed By: #### L [id number] #### [facility] [address] [place] [address] [place] Sodium [Moles/Vol] 141 mmol/L Normal 137-145 [facility] Comment on above: Performed By: #### L [id number] #### [facility] [address] [place] [address] [place] Urea nitrogen [Mass/Vol] 20 mg/dL Normal 9-20 [facility] Comment on above: Performed By: #### L [id number] #### [facility] [address] [place] [address] [place] Urea nitrogen/Creatinine [Mass ratio] 25 mg/mg High 6-20 [facility] Comment on above: Performed By: #### L [id number] #### [facility] [address] [place] [address] [place] D-DIMERon 02-13-2024 D-DIMER (WHL/UTN) 0.20 mg/L FEU Normal <0.53 [facility] Comment on above: Performed By: #### L [id number] #### [facility] [address] [place] [address] [place] Narrative Normal D-dimer resul ts have a high negative predictive value for excluding DVT or PE. Results should be interpreted in conjunction with the clinical pre-test probability of venous thromboembolism. Normal [facility] Comment on above: Performed By: #### L [id number] #### [facility] [address] [place] [address] [place] MAGNESIUMon 02-13-2024 Magnesium [Mass/Vol] 2.1 mg/dL Normal 1.6-2.3 [facility] Comment on above: Performed By: #### L [id number] #### [facility] [address] [place] [address] [place] Magnesium [Mass/Vol] 2.1 mg/dL Normal 1.6-2.3 [facility] Comment on above: Performed By: #### L [id number] #### [facility] [address] [place] [address] [place] PTT (PARTIAL THROMBOPLASTIN TIME)on 02-13-2024 aPTT Coag (Bld) [Time] 26.1 s Normal 22.0-32.0 [facility] Comment on above: Performed By: #### L [id number] #### [facility] [address] [place] [address] [place] TROPONIN-Ion 02-13-2024 Troponin I.cardiac [Mass/Vol] ng/mL Normal 0.00-0.03 [facility] Comment on above: Performed By: #### L [id number] #### [facility] [address] [place] [address] [place] ALP SerPl-cCncOrdered By: Atif Ivan on 03-21-2023 ALP [Catalytic activity/Vol] 82 U/L 45-117 [facility] ALT SerPl-cCncOrdered By: Atif Ivan on 03-21-2023 ALT [Catalytic activity/Vol] 21 U/L 13-61 [facility] Comment on above: Falsely depressed or falsely elevated results may occur onsamples drawn from patients taking Sulfasalazine andSulfapyridine. AST SerPl-cCncOrdered By: Atif Ivan on 03-21-2023 AST [Catalytic activity/Vol] 16 U/L 15-37 [facility] Comment on above: Falsely depressed or falsely elevated results may occur onsamples drawn from patients taking Sulfasalazine andSulfapyridine. Albumin SerPl-mCncOrdered By : Raul Ivan on 03-21-2023 Albumin [Mass/Vol] 3.9 g/dL 3.4-5.[address] [facility] Albumin/Glob 24H Ur-mRtoOrde red By: Raul Ivan on 03-21-2023 Albumin/Globulin (24H U) [Mass ratio] 1.1 1.1-1.8 [facility] Anion Gap SerPl-sCncOrdered By: Raul Ivan on 03-21-2023 Anion gap [Moles/Vol] 6.8 mmol/L 0-16 [facility] BUN SerPl-mCncOrdered By: Atif Ivan on 03-21-2023 Urea nitrogen [Mass/Vol] 13 mg/dL 7-18 [facility] BUN/creat SerPl-mRtoOrdered By: Raul Ivan on 03-21-2023 Urea nitrogen/Creatinine [Mass ratio] 14.1 mg/mg 0-30 [facility] Basophils Auto (Bld) [#/Vol] Ordered By: Raul Ivan on 03-21-2023 Basophils (Bld) [#/Vol] 0.00 10*3/uL 0.0-0.2 [facility] Basophils/100 WBC Auto (Bld) Ordered By: Raul Ivan on 03-21-2023 Basophils/100 WBC (Bld) 0.6 % 0.0-1.5 [facility] Bilirub SerPl-mCncOrdered By : Raul Ivan on 03-21-2023 Bilirubin [Mass/Vol] 0.40 mg/dL 0.0-1.0 [facility] Comment on above: Use of this assay is not recommended for patients undergoingtreatment with Eltrombopag due to the potential for falselyelevated results. C Reactive Proteinon 023 CRP [Mass/Vol] mg/L Normal < 3.00 [facility] Comment on above: Result Comment: CRP is useful for the detection and evaluation of infection, tissue injury and inflammatory disorders. For cardiac risk assessment order HsCRP. Performed By: #### T 4, RAPIDTROP, MG, TSH, PROF #### [facility] [address] [address] CBC AUTO DIFF (REFLEX MANUAL )on 03-21-2023 BASOPHIL # 0.00 x10 3/uL Normal 0.0-0.2 [facility] Comment on above: Performed By: #### T 4, RAPIDTROP, MG, TSH, PROF #### [facility] [address] [address] BASOPHIL % 0.6 % Normal 0.0-1.5 [facility] Comment on above: Performed By: #### T 4, RAPIDTROP, MG, TSH, PROF #### [facility] [address] [address] EOSINOPHIL % 4.1 % Normal 0.0-10.0 [facility] Comment on above: Performed By: #### T 4, RAPIDTROP, MG, TSH, PROF #### [facility] [address] [address] LYMPHOCYTE # 2.10 x10 3/uL Normal 1.0-4.8 [facility] Comment on above: Performed By: #### T 4, RAPIDTROP, MG, TSH, PROF #### [facility] [address] [address] LYMPHOCYTE % 29.2 % Normal 13.0-47.0 [facility] Comment on above: Performed By: #### T 4, RAPIDTROP, MG, TSH, PROF #### [facility] [address] [address] MEAN LUIS MANUEL HGB CONC 33.9 g/dl Normal 31.0-37.0 [facility] Comment on above: Performed By: #### T 4, RAPIDTROP, MG, TSH, PROF #### [facility] [address] [place] [address] MEAN CORPUSCULAR HGB 29.9 pg Normal 26.0-34.0 [facility] Comment on above: Performed By: #### T 4, RAPIDTROP, MG, TSH, PROF #### [facility] [address] [address] MEAN CORPUSCULAR VOLUME 88.3 fl Normal 78-98 [facility] Comment on above: Performed By: #### T 4, RAPIDTROP, MG, TSH, PROF #### [facility] [address] [address] MEAN PLATELET VOLUME 7.8 fl Normal 7.5-10.7 [facility] Comment on above: Performed By: #### T 4, RAPIDTROP, MG, TSH, PROF #### [facility] [address] [address] MONOCYTE # 0.50 x10 3/uL Normal 0.0-1.0 [facility] Comment on above: Performed By: #### T 4, RAPIDTROP, MG, TSH, PROF #### [facility] [address] [address] MONOCYTE % 7.2 % Normal 0.0-10.0 [facility] Comment on above: Performed By: #### T 4, RAPIDTROP, MG, TSH, PROF #### [facility] [address] [address] NEUT# 4.20 x10 3/uL Normal 1.8-7.7 [facility] Comment on above: Performed By: #### T 4, RAPIDTROP, MG, TSH, PROF #### [facility] [address] [address] NEUTROPHIL % 58.9 % Normal 40.0-80.0 [facility] Comment on above: Performed By: #### T 4, RAPIDTROP, MG, TSH, PROF #### [facility] [address] [address] PLATELET 217 x10 3/uL Normal 150-350 [facility] Comment on above: Performed By: #### T 4, RAPIDTROP, MG, TSH, PROF #### [facility] [address] [address] RED BLOOD CELL COUNT 4.72 x10 6/uL Normal 4.50-5.90 [facility] Comment on above: Performed By: #### T 4, RAPIDTROP, MG, TSH, PROF #### [facility] [address] [address] RED CELL WIDTH 13.9 % Normal 11.5-14.5 [facility] Comment on above: Performed By: #### T 4, RAPIDTROP, MG, TSH, PROF #### [facility] [address] [address] TOTAL EO 0.30 x10 3/uL Normal 0-1.0 [facility] Comment on above: Performed By: #### T 4, RAPIDTROP, MG, TSH, PROF #### [facility] [address] [address] WHITE BLOOD CELL COUNT 7.2 x10 3/uL Normal 4.5-11.0 [facility] Comment on above: Performed By: #### T 4, RAPIDTROP, MG, TSH, PROF #### [facility] [address] [address] CO2 SerPl-sCncOrdered By: Atif Ivan on 03-21-2023 CO2 [Moles/Vol] 30 mmol/L - [facility] Comment on above: TCO2 test measures t otal amount of CO2 in the blood, whichoccurs mostly in the form of bicarbonate (HCO3). COMPREHENSIVE METABOLICon ADJUSTED CALCIUM 9.1 MG/DL Normal [facility] Comment on above: Performed By: #### C RP, RAPIDTROP, PROF #### [facility] [address] [address] Albumin [Mass/Vol] 3.9 g/dL Normal 3.4-5.0 [facility] Comment on above: Performed By: #### C MARYLU STORM, PROF #### [facility] [address] [address] Albumin/Globulin [Mass ratio] 1.1 {ratio} Normal 1.1-1.8 [facility] Comment on above: Performed By: #### C MARYLU STORM, PROF #### [facility] [address] [address] ALP [Catalytic activity/Vol] 82 U/L Normal 45-117 [facility] Comment on above: Performed By: #### C MARYLU STORM, PROF #### [facility] [address] [address] ALT [Catalytic activity/Vol] 21 U/L Normal 13-61 [facility] Comment on above: Result Comment: Fals adri depressed or falsely elevated results may occur on samples drawn from patients taking Sulfasalazine and Sulfapyridine. Performed By: #### C MARYLU STORM, PROF #### [facility] [address] [address] Anion gap [Moles/Vol] 6.8 mmol/L Normal 0-16 [facility] Comment on above: Performed By: #### C MARYLU STORM, PROF #### [facility] [address] [address] AST [Catalytic activity/Vol] 16 U/L Normal 15-37 [facility] Comment on above: Result Comment: Fals adri depressed or falsely elevated results may occur on samples drawn from patients taking Sulfasalazine and Sulfapyridine. Performed By: #### C MARYLU STORM, PROF #### [facility] [address] [address] Bilirubin [Mass/Vol] 0.40 mg/dL Normal 0.0-1.0 [facility] Comment on above: Result Comment: Use of this assay is not recommended for patients undergoing treatment with Eltrombopag due to the potential for falsely elevated results. Performed By: #### C MARLYU STORM, PROF #### [facility] [address] [address] Calcium [Mass/Vol] 9.0 mg/dL Normal 8.5-10.1 [facility] Comment on above: Performed By: #### C MARYLU STORM, PROF #### [facility] [address] [address] Chloride [Moles/Vol] 110 mmol/L High 98-107 [facility] Comment on above: Performed By: #### C MARYLU STORM, PROF #### [facility] [address] [address] CO2 [Moles/Vol] 30 mmol/L Normal 21-32 [facility] Comment on above: Result Comment: TCO2 test measures total amount of CO2 in the blood, which occurs mostly in the form of bicarbonate (HCO3). Performed By: #### C MARYLU STORM, PROF #### [facility] [address] [address] Creatinine [Mass/Vol] 0.92 mg/dL Normal 0.70-1.30 [facility] Comment on above: Performed By: #### C MARYLU STORM, PROF #### [facility] [address] [address] GFR/1.73 sq M.predicted among non-blacks MDRD (S/P/Bld) [Vol rate/Area] 111 mL/min/{1.73_m2} Normal >60 [facility] Comment on above: Result Comment: Aver age GFR for 30-39 years old = 107 ml/min/1.73 sq.m Chronic Kidney Disease - GFR generally <60 ml/min/1.73 sq.m Kidney Failure - GFR generally <15 ml/min/1.73 sq.m The estimated glomerular filtration rate (eGFR) was calculated using the 2020 CKD-EPI eGFR creatinine equation, which does not include race as a factor. This equation is validated in individuals 18 years of age and older. Accurate estimation of GFR requires stable day-to-day creatinine. Creatinine-based eGFR is less accurate in patients with extremes of muscle mass, restriction of dietary protein, ingestion of creatine, extra-renal metabolism of creatinine, or treatment with medications that affect renal tubular creatinine secretion. The eGFR is normalized to a body surface area of 1.73 square meters. GFR Categories in Chronic Kidney Disease (CKD) GFR GFR (mL/min/1.73 Category: square meters): Interpretation: G1 90 or greater Normal or high* G2 60-89 Mild decrease* G3a 45-59 Mild to moderate decrease G3b 30-44 Moderate to severe decrease G4 15-29 Severe decrease G5 14 or less Kidney failure *In the absence of evidence of kidney damage, neither GFR category G1 nor G2 fulfill the criteria for CKD (Kidney Int Suppl 2013;3:1-150) The new eGFRcr equation has similar overall performance characteristics to older equations. For most patients the previous eGFR result will be similar. However, for some, the values may differ by more than 10% particularly at higher values of eGFRcr and for younger patients. Please go to eGFR calculator/National Kid[employer] to compare this result with a previously calculated eGFR based on older equations. Performed By: #### C MARYLU STORM, PROF #### [facility] [address] [address] Glucose [Mass/Vol] 87 mg/dL Normal 70-110 [facility] Comment on above: Result Comment: Fals adri depressed or falsely elevated results may occur on samples drawn from patients taking Sulfasalazine and Sulfapyridine. ADA Guidelines for Diabetes: Fasting glucose <100 = Normal fasting glucose. Fasting glucose 100-125 = Impaired fasting glucose, also referred to as pre-diabetes . Fasting glucose >125 = Provisional diagnosis of diabetes. Diagnosis must be confirmed by repeat testing on a different day. Performed By: #### C MARYLU STORM, PROF #### [facility] [address] [address] Potassium [Moles/Vol] 3.8 mmol/L Normal 3.5-5.1 [facility] Comment on above: Performed By: #### C RP, RAPIDTROP, PROF #### [facility] [address] [address] Protein [Mass/Vol] 7.4 g/dL Normal 6.4-8.2 [facility] Comment on above: Performed By: #### C RP, RAPIDTROP, PROF #### [facility] [address] [address] Sodium [Moles/Vol] 143 mmol/L Normal 136-145 [facility] Comment on above: Performed By: #### C RP, RAPIDTROP, PROF #### [facility] [address] [address] Urea nitrogen [Mass/Vol] 13 mg/dL Normal 7-18 [facility] Comment on above: Performed By: #### C RP, RAPIDTROP, PROF #### [facility] [address] [address] Urea nitrogen/Creatinine [Mass ratio] 14.1 mg/mg Normal 0-30 [facility] Comment on above: Performed By: #### C RP, RAPIDTROP, PROF #### [facility] [address] [address] CXRSVOon 03-21-2023 CXRSVO Name: SHAYLA MAGAÑA AM Phys: Raul Ivan DO : 1985 Age: 37 Sex: M Acct: [id number] Loc: Exam Date: 03/21/2023 Status: REG ER Radiology No: Unit No: [id number] PH: [phone] Diagnosis: POSSIBLE HERNIATED DISC IN BACK HURTS TO LOOK DOWN EXAM: [id number] CHEST-SINGLE VIEW ONLY Reason For Procedure: Chest Pain STUDY: CHEST-SINGLE VIEW ONLY CLINICAL INDICATION: Shortness of breath TECHNIQUE: Portable AP view 1048 COMPARISON: Chest x-ray 10/15/2022 FINDINGS: No infiltrate. No CHF or effusion. Cardiac size is normal IMPRESSION: NO ACUTE PROCESS SITE: O REPORT SIGNED IN OTHER VENDOR SYSTEM 03/21/2023 Reported By: Oz Randhawa MD CC: Technologist: JOYCE AMBRIZ, RT/R Transcribed Date/Time: 03/21/2023 (6257) Truck Driver Salesperson: KRISTIAN Printed Date/Time: 03/21/2023 (2397) PAGE 1 Signed Report Normal [facility] Calcium Album cor SerPl-mCnc Ordered By: Raul Ivan on 03-21-2023 Calcium corrected for albumin [Mass/Vol] 9.1 [facility] Calcium SerPl-mCncOrdered By : Raul Ivan on 03-21-2023 Calcium [Mass/Vol] 9.0 mg/dL 8.5-10.[address] [facility] Chloride SerPl-sCncOrdered B y: Raul Ivan on 03-21-2023 Chloride [Moles/Vol] 110 mmol/L 98-107 [facility] Creat SerPl-mCncOrdered By: Raul Ivan on 03-21-2023 Creatinine [Mass/Vol] 0.92 mg/dL 0.70-1.30 [facility] EDon 03-21-2023 ED [facility] M 03/21/23 [place], [place] [address] [id number] KISHOR MAGAÑA Non-Staff physician EMERGENCY ROOM REPORT MR [id number] ======== History of Present Illness Date of Service 03/21/23 Provider Milton Mckeon MD, Raul Chief Complaint General ED Complaint History of Present Illness Patient is a 37-year-old male with past medical history of asthma, GERD, who presents to the ED with complaints of upper back pain which began 2 weeks ago and has progressively become worse since this time. 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 He states the pain is sharp in nature, and between his shoulder blades. The pain has become worse now radiating to the left chest. He denies shortness of breath with the pain, however, he does have asthma. He states that his left- sided chest pain is sharp in nature, will last for 15 minutes at a time and happens 3 times per day. He denies history of blood clots, or cardiac history. He does have a family history of heart attack in his brother, father, uncle, and aunt. Past Medical/Surgical History : ASTHMA Social History Smoking history: Former smoker Alcohol: N Drugs: N (Raul Ivan DO) Home Medications . Active Scripts Cyclobenzaprine HCl (Cyclobenzaprine Hydrochlo) 10 MG PO HS Lidocaine (Lidoderm Patch 5%) 1 AVANI TOP DAILY (Milton Mckeon MD) Allergies Allergies Coded Allergies: Bupropion (From WELLBUTRIN) (03/21/23) Sertraline (From ZOLOFT) (03/21/23) (Raul Ivan DO) Review of Systems Other Except as noted in the HPI, all remaining systems are reviewed and found to be negative. (Raul Ivan DO) Examination Exam Date of Last Tetanus: UNK Diagnostic Studies Recent Impressions [facility]/RADIOLOGY - CHEST-SINGLE VIEW ONLY 03/21 1053 Report Impression - Status: SIGNED Entered: 03/21/2023 1103 IMPRESSION: NO ACUTE PROCESS SITE: O Impression By: KATIE/Oz Fuentes MD Laboratory Tests 03/21 03/21 03/21 03/21 1418 1218 1036 1036 Chemistry Sodium (136 - 145 MMOL/L) 143 Potassium (3.5 - 5.1 MMOL/L) 3.8 Chloride (98 - 107 MMOL/L) 110 CO2 (Enzymatic) (21 - 32 MMOL/L) 30 Anion Gap (0 - 16) 6.8 BUN (7 - 18 MG/DL) 13 Creatinine (0.70 - 1.30 MG/DL) 0.92 Est GFR (CKD-EPI 2020) (>60) 111 BUN/Creatinine Ratio (0 - 30) 14.1 Glucose (70 - 110 MG/DL) 87 Calcium (8.5 - 10.1 MG/DL) 9.0 Calcium Adj for Albumin (MG/DL) 9.1 Total Bilirubin (0.0 - 1.0 MG/DL) 0.40 AST (15 - 37 U/L) 16 ALT (13 - 61 U/L) 21 Alkaline Phosphatase (45 - 117 U/L) 82 Troponin I High Sens (<78 NG/L) Cancelled Cancelled 4 C-Reactive Protein (< 3.00 mg/L) < 3.00 Total Protein (6.4 - 8.2 GM/DL) 7.4 Albumin (3.4 - 5.0 GM/DL) 3.9 Albumin/Globulin Ratio (1.1 - 1.8) 1.1 Hematology WBC (4.5 - 11.0 x10 3/uL) 7.2 RBC (4.50 - 5.90 x10 6/uL) 4.72 Hgb (13.0 - 16.0 g/dl) 14.1 Hct (41 - 53 %) 41.7 MCV (78 - 98 fl) 88.3 MCH (26.0 - 34.0 pg) 29.9 MCHC (31.0 - 37.0 g/dl) 33.9 RDW (11.5 - 14.5 %) 13.9 Plt Count (150 - 350 x10 3/uL) 217 MPV (7.5 - 10.7 fl) 7.8 Eos # (Auto) (0 - 1.0 x10 3/uL) 0.30 Baso # (Auto) (0.0 - 0.2 x10 3/uL) 0.00 Neutrophils % (40.0 - 80.0 %) 58.9 Lymphocytes % (13.0 - 47.0 %) 29.2 Monocytes % (0.0 - 10.0 %) 7.2 Eosinophils % (0.0 - 10.0 %) 4.1 Basophils % (0.0 - 1.5 %) 0.6 Neutrophils # (1.8 - 7.7 x10 3/uL) 4.20 Lymphocytes # (1.0 - 4.8 x10 3/uL) 2.10 Monocytes # (0.0 - 1.0 x10 3/uL) 0.50 ESR (2 - 10 mm/hr) 2 03/21 1018 Toxicology Opiates Screen Cancelled Ur Opiates, Quant Cancelled Ur Buprenorphine Cancelled U 6-Acetylmorphine Scrn Cancelled Ur Oxycodone Screen Cancelled U Methadone Immunoassay Cancelled Barbiturate Screen Cancelled Amphetamines Screen Cancelled Benzodiazepines Screen Cancelled Ur Benzodiazepine, Qnt Cancelled Cocaine Screen Cancelled U Cocaine Metabol Qnt Cancelled Cannabinoids Cancelled U Cannabinoids, Quant Cancelled Urine Specific [place] Cancelled Urines Urine Color Cancelled Urine Appearance Cancelled Urine pH Cancelled Ur Specific [place] Cancelled Urine Protein Cancelled Urine Glucose (UA) Cancelled Urine Ketones Cancelled Urine Nitrite Cancelled Urine Gross Bile Cancelled Urine Urobilinogen Cancelled Ur Leukocyte Esterase Cancelled Urine Hemoglobin Cancelled Urine Ascorbic Acid Cancelled EKG Impressions A twelve-lead EKG was performed. I interpreted the EKG with the following findings: 0945: An EKG was performed that was read by myself. Normal sinus rhythm, 62 bpm. Normal axis. MI interval 151 ms, QRS duration 86 ms, QT/QTc 411/416 ms, no ST elevations or depressions noted. No previous EKG to compare to. (Raul Ivan DO) Exam Vitals Vital Signs Date Time Temp Pulse Resp B/P B/P Pulse O2 O2 (more content not included)... Normal [facility] EKGIon 03-21-2023 EKGI [facility] [place] [address] EKG Report GÓMEZKISHOR Elliott [id number] [facility] ER [id number] Raul Ivan DO SINUS RHYTHM NORMAL ECG Electronically signed by MD Gil [address] Dr Mar 29 2023 7:28AM Normal [facility] ERYTHROCYTE SED RATEon 03-21 ERYTHROCYTE SED RATE 2 mm/hr Normal 2-10 [facility] Comment on above: Performed By: #### E SR #### [facility] [place] [id number] ESR Westergren method (Bld) [Velocity]Ordered By: Raul Ivan on 03-21-2023 ESR (Bld) [Velocity] 2 mm/h 2-10 [facility] Eosinophils Manual cnt (Bld) [#/Vol]Ordered By: Raul Ivan on 03-21-2023 Eosinophils (Bld) [#/Vol] 0.30 10*3/uL 0-1.0 [facility] Glucose SerPl-mCncOrdered By : Raul Ivan on 03-21-2023 Glucose [Mass/Vol] 87 mg/dL 70-[address] [facility] Comment on above: Falsely depressed or falsely elevated results may occur onsamples drawn from patients taking Sulfasalazine andSulfapyridine. ADA Guidelines for Diabetes:Fasting glucose <100 = Normal fasting glucose.Fasting glucose 100-125 = Impaired fasting glucose, also referred to as pre-diabetes .Fasting glucose >125 = Provisional diagnosis of diabetes. Diagnosis must be confirmed by repeat testing on a different day. Hgb Bld-mCncOrdered By: Janak Ivan on 03-21-2023 Hemoglobin (Bld) [Mass/Vol] 14.1 g/dL 13.0-16.0 [facility] Laboratory - Chemistry and C hemistry - challengeOrdered By: Raul Ivan on 03-21-2023 GFR/1.73 sq M.predicted MDRD (S/P/Bld) [Vol rate/Area] 111 mL/min/{1.73_m2} >60 [facility] Comment on above: Average GFR for 30-3 9 years old = 107 ml/min/1.73 sq.mChronic Kidney Disease - GFR generally <60 ml/min/1.73 sq.mKidney Failure - GFR generally <15 ml/min/1.73 sq.m The estimated glomerular filtration rate (eGFR) wascalculated using the 2020 CKD-EPI eGFR creatinine equation,which does not include race as a factor. This equation isvalidated in individuals 18 years of age and older. Accurateestimation of GFR requires stable day-to-day creatinine.Creatinine-based eGFR is less accurate in patients withextremes of muscle mass, restriction of dietary protein,ingestion of creatine, extra-renal metabolism of creatinine,or treatment with medications that affect renal tubularcreatinine secretion. The eGFR is normalized to a bodysurface area of 1.73 square meters. GFR Categories in Chronic Kidney Disease (CKD) GFR GFR (mL/min/1.73Category: square meters): Interpretation:G1 90 or greater Normal or high*G2 60-89 Mild decrease*G3a 45-59 Mild to moderate dxwfumxuH2l 30-44 Moderate to severe decreaseG4 15-29 Severe decreaseG5 14 or less Kidney failure*In the absence of evidence of kidney damage, neither GFRcategory G1 nor G2 fulfill the criteria for CKD (Kidney IntSuppl 2013;3:1-150) The new eGFRcr equation has similar overall performancecharacteristics to older equations. For most patients theprevious eGFR result will be similar. However, for some, thevalues may differ by more than 10% particularly at highervalues of eGFRcr and for younger patients. Please go to eGFRcalculator/National Kidney Foundation to compare this resultwith a previously calculated eGFR based on older equations. Laboratory - Hematology and Cell countsOrdered By: Raul Ivan on 03-21-2023 Eosinophils/100 WBC (Bld) 4.1 % 0.0-10.0 [facility] Erythrocyte distribution width (RBC) [Ratio] 13.9 % 11.5-14.5 [facility] Hematocrit Auto (Bld) [Pure volume fraction] 41.7 41-53 [facility] Lymphocytes/100 WBC (Bld) 29.2 % 13.0-47.0 [facility] Monocytes/100 WBC (Bld) 7.2 % 0.0-10.0 [facility] Neutrophils/100 WBC (Bld) 58.9 % 40.0-80.0 [facility] Platelet mean volume (Bld) [Entitic vol] 7.8 fL 7.5-10.7 [facility] Lymphocytes Auto (Bld) [#/Vo l]Ordered By: Raul Ivan on 03-21-2023 Lymphocytes (Bld) [#/Vol] 2.10 10*3/uL 1.0-4.8 [facility] MCH Auto (RBC) [Entitic mass ]Ordered By: Raul Ivan on 03-21-2023 MCH (RBC) [Entitic mass] 29.9 pg 26.0-34.0 [facility] MCHC Auto (RBC) [Mass/Vol]Or dered By: Raul Ivan on 03-21-2023 MCHC (RBC) [Mass/Vol] 33.9 g/dL 31.0-37.0 [facility] MCV Auto (RBC) [Entitic vol] Ordered By: Raul Ivan on 03-21-2023 MCV (RBC) [Entitic vol] 88.3 fL 78-98 [facility] Monocytes Auto (Bld) [#/Vol] Ordered By: Raul Ivan on 03-21-2023 Monocytes (Bld) [#/Vol] 0.50 10*3/uL 0.0-1.0 [facility] Neutrophils Auto (Bld) [#/Vo l]Ordered By: Raul Ivan on 03-21-2023 Neutrophils (Bld) [#/Vol] 4.20 10*3/uL 1.8-7.7 [facility] No Panel InformationOrdered By: Raul Ivan on 03-21-2023 Troponin I High Sensitivity 4 <78 [facility] Comment on above: Effective September, [facility] is replacingthe old Cardiac Troponin I assay with High-SensitivityCardiac troponin (TNIH). This new assay has improvedprecision and analytic sensitivity. Please note the new reference ranges and change in units ofmeasurements: Method: Siemens Dimension Westerly Reference Range: Males: <78 ng/L Females: <54 ng/L WARNING: Different methodologies give potentiallysignificantly different numerical values. Do not compareresults between different Laboratories. For diagnostic purposes, the results should always beassessed in conjunction with the patient's medical history,clinical examination and other findings. The Lefor Definition of AMI takes into consideration theESC/ACC/AHA/WHF definition recommending the detection of arise and/or fall of cardiac troponin in the clinical settingwith at least one value above the 99th percentile upperreference limit. Due to the release kinetics of cardiactroponin I, an initial test result may not be definitive indiagnosing DE. Serial cardiac troponin measurements aresuggested. Troponins are released during the process of myocyteinjury/necrosis. While they are cardiac-specific, they arenot specific for DE, and detectable levels may be seen inother disease states that involve the heart muscle, so thatACC/ESC/AHA guidelines and the Lefor Definition of MIrecommend serial sampling with a rise or fall in troponin todistinguish between acute and chronic Cardiac Troponinelevations. Platelet # BldOrdered By: Atif Ivan on 03-21-2023 Platelets (Bld) [#/Vol] 217 10*3/uL 150-350 [facility] Potassium SerPl-sCncOrdered By: Raul Ivan on 03-21-2023 Potassium [Moles/Vol] 3.8 mmol/L 3.5-5.1 [facility] Prot SerPl-mCncOrdered By: Mtaty Ivan on 03-21-2023 Protein [Mass/Vol] 7.4 g/dL 6.4-8.[address] [facility] RBC Auto (Bld) [#/Vol]Ordere d By: Raul Ivan on 03-21-2023 RBC (Bld) [#/Vol] 4.72 10*6/uL 4.50-5.90 [facility] ROUTINE URINE WITH RFLX CULT on 03-21-2023 Appearance (U) Normal CLEAR [facility] Comment on above: Performed By: #### T 4, RAPIDTROP, MG, TSH, PROF #### [facility] [address] [address] Color (U) Normal YELLOW [facility] Comment on above: Performed By: #### T 4, RAPIDTROP, MG, TSH, PROF #### [facility] [address] [address] Glucose Ql (U) Normal NEG [facility] Comment on above: Performed By: #### T 4, RAPIDTROP, MG, TSH, PROF #### [facility] [address] [address] Nitrite Ql (U) Normal NEG [facility] Comment on above: Performed By: #### T 4, RAPIDTROP, MG, TSH, PROF #### [facility] [address] [address] Protein Ql (U) Normal NEG [facility] Comment on above: Performed By: #### T 4, RAPIDTROP, MG, TSH, PROF #### [facility] [address] [address] REFLEX CULTURE? Normal [facility] Comment on above: Performed By: #### T 4, RAPIDTROP, MG, TSH, PROF #### [facility] [address] [address] Specific gravity (U) [Rel density] Normal 1.002-1.03 0 [facility] Comment on above: Performed By: #### T 4, RAPIDTROP, MG, TSH, PROF #### [facility] [address] [address] URINE ASCORBIC ACID Normal [place] Comment on above: Performed By: #### T 4, RAPIDTROP, MG, TSH, PROF #### [facility] [address] [address] URINE BILE Normal NEG [facility] Comment on above: Performed By: #### T 4, RAPIDTROP, MG, TSH, PROF #### [facility] [address] [address] URINE HEMOGLOBIN Normal NEG [facility] Comment on above: Performed By: #### T 4, RAPIDTROP, MG, TSH, PROF #### [facility] [address] [address] URINE KETONE Normal NEG [facility] Comment on above: Performed By: #### T 4, RAPIDTROP, MG, TSH, PROF #### [facility] [address] [address] URINE LEUKOCYTES Normal NEG [facility] Comment on above: Performed By: #### T 4, RAPIDTROP, MG, TSH, PROF #### [facility] [address] [address] URINE PH Normal 4.6-8.0 [facility] Comment on above: Performed By: #### T 4, RAPIDTROP, MG, TSH, PROF #### [facility] [address] [address] URINE UROBILINOGEN Normal <2.0 [facility] Comment on above: Performed By: #### T 4, RAPIDTROP, MG, TSH, PROF #### [facility] [address] [address] RapidTrop I HSon 03-21-2023 Troponin I H.S. 4 NG/L Normal <78 [facility] Comment on above: Result Comment: Latonya ctive October 12, 2021, [facility] is replacing the old Cardiac Troponin I assay with High-Sensitivity Cardiac troponin (TNIH). This new assay has improved precision and analytic sensitivity. Please note the new reference ranges and change in units of measurements: Method: Siemens Dimension Westerly Reference Range: Males: <78 ng/L Females: <54 ng/L WARNING: Different methodologies give potentially significantly different numerical values. Do not compare results between different Laboratories. For diagnostic purposes, the results should always be assessed in conjunction with the patient's medical history, clinical examination and other findings. The Lefor Definition of AMI takes into consideration the ESC/ACC/AHA/WHF definition recommending the detection of a rise and/or fall of cardiac troponin in the clinical setting with at least one value above the 99th percentile upper reference limit. Due to the release kinetics of cardiac troponin I, an initial test result may not be definitive in diagnosing DE. Serial cardiac troponin measurements are suggested. Troponins are released during the process of myocyte injury/necrosis. While they are cardiac-specific, they are not specific for DE, and detectable levels may be seen in other disease states that involve the heart muscle, so that ACC/ESC/AHA guidelines and the Lefor Definition of DE recommend serial sampling with a rise or fall in troponin to distinguish between acute and chronic Cardiac Troponin elevations. Performed By: #### T 4, RAPIDTROP, MG, TSH, PROF #### [facility] [address] [address] Sodium SerPl-sCncOrdered By: Raul Ivan on 03-21-2023 Sodium [Moles/Vol] 143 mmol/L 136-[address] [facility] WBC Auto (Bld) [#/Vol]Ordere d By: Raul Ivan on 03-21-2023 WBC (Bld) [#/Vol] 7.2 10*3/uL 4.5-11.[address] [facility] EEGon 11-22-2022 EEG [facility] [place], [place] [address] EEG REPORT Patient : KISHOR MAGAÑA Status : REG REF Age : 37 [id number] Sex : M M.R. Number : [id number] Ordering Physician : Shirley Alejandro MD Admitting Diagnosis: ACUTE CONFUSION Physician to Read : SHIRLEY ALEJANDRO Date of Study : 11/17/22 DATE OF STUDY: 11/17/2022 A 16-channel EEG is done on a 37-year-old with acute confusion. Posterior dominant background rhythm is in the range of 8 to 12 Hz. There is no interhemispheric asynchrony, it is well modulated, waxing and waning in character. EMG and eye movement artifact is seen in the frontal eye carrillo. Photic stimulation was performed with no modification of the record. Hyperventilation was performed with no modification of the record. INTERPRETATION: This 16-channel EEG is essentially unremarkable. No epileptiform discharges are seen in awake and drowsy state. KISHOR MAGAÑA - /FN/ak DOC#: [id number]/JOB#: [id number] D.... 11/22/22 1016 ___M.D. T.... 11/22/22 1021 FN Shirley Alejandro MD Signed Electronically 11/22/22 4654 cc: Shirley Alejandro MD Normal [facility] ROUTINE URINE WITH RFLX CULT on 11-17-2022 Appearance (U) CLEAR Normal CLEAR [facility] Comment on above: Performed By: #### T 4, RAPIDTROP, MG, TSH, PROF #### [facility] [address] [address] Color (U) YELLOW Normal YELLOW [facility] Comment on above: Performed By: #### T 4, RAPIDTROP, MG, TSH, PROF #### [facility] [address] [address] Glucose Ql (U) Negative Normal NEG [facility] Comment on above: Performed By: #### T 4, RAPIDTROP, MG, TSH, PROF #### [facility] [address] [address] Nitrite Ql (U) Negative Normal NEG [facility] Comment on above: Performed By: #### T 4, RAPIDTROP, MG, TSH, PROF #### [facility] [address] [address] pH (U) 6.0 [pH] Normal 4.6-8.0 [facility] Comment on above: Performed By: #### T 4, RAPIDTROP, MG, TSH, PROF #### [facility] [address] [address] Protein Ql (U) Negative Normal NEG [facility] Comment on above: Performed By: #### T 4, RAPIDTROP, MG, TSH, PROF #### [facility] [address] [address] REFLEX CULTURE? NO Normal [facility] Comment on above: Performed By: #### T 4, RAPIDTROP, MG, TSH, PROF #### [facility] [address] [address] Specific gravity (U) [Rel density] 1.021 Normal 1.002-1.03 0 [facility] Comment on above: Performed By: #### T 4, RAPIDTROP, MG, TSH, PROF #### [facility] [address] [address] URINE ASCORBIC ACID Negative Normal NEG [place] Comment on above: Performed By: #### T 4, RAPIDTROP, MG, TSH, PROF #### [facility] [address] [address] URINE BILE Negative Normal NEG [facility] Comment on above: Performed By: #### T 4, RAPIDTROP, MG, TSH, PROF #### [facility] [address] [address] URINE HEMOGLOBIN Negative Normal NEG [facility] Comment on above: Performed By: #### T 4, RAPIDTROP, MG, TSH, PROF #### [facility] [address] [address] URINE KETONE Negative Normal NEG [facility] Comment on above: Performed By: #### T 4, RAPIDTROP, MG, TSH, PROF #### [facility] [address] [address] URINE LEUKOCYTES Negative Normal NEG [facility] Comment on above: Performed By: #### T 4, RAPIDTROP, MG, TSH, PROF #### [facility] [address] [address] Urobilinogen (U) [Mass/Vol] Negative Normal <2.0 [facility] Comment on above: Performed By: #### T 4, RAPIDTROP, MG, TSH, PROF #### [facility] [address] [address] SPCon 11-17-2022 SPC Name: SHAYLA MAGAÑA AM Phys: Shirley Alejandro MD : 1985 Age: 37 Sex: M Acct: [id number] Loc: [facility] Exam Date: 11/17/2022 Status: REG REF Radiology No: Unit No: [id number] PH: [phone] Diagnosis: ACUTE CONFUSION EXAM: [id number] SPINE/CERVICAL 4 OR 5 VWS Reason For Procedure: PERSISTENT HEADACHES STUDY: SPINE/CERVICAL 4 OR 5 VWS CLINICAL INDICATION: Persistent headaches TECHNIQUE: 6 views of the cervical spine were obtained COMPARISON: None. Findings: The cervical vertebrae and intervertebral disc spaces appear normal. There are no fractures or dislocations seen. There is symmetry between the odontoid process and lateral masses of C1. The prevertebral space is normal. Oblique films show no evidence for intervertebral foramen narrowing Impression: Unremarkable examination. SITE: P REPORT SIGNED IN OTHER VENDOR SYSTEM 11/17/2022 Reported By: Darrius Llamas MD CC: Technologist: JULITO DAS Transcribed Date/Time: 11/17/2022 (1477) Truck Driver Salesperson: KRISTIAN Printed Date/Time: 11/17/2022 (0583) PAGE 1 Signed Report Normal [facility] Jose 11-17-2022 TESSONO Name: GÓMEZSHAYLA AM Phys: Sheila Kong DO : 1985 Age: 37 Sex: M Acct: [id number] Loc: [facility] Exam Date: 11/17/2022 Status: REG ER Radiology No: Unit No: [id number] PH: [phone] Diagnosis: VESCETOMY SEVERAL MONTHS AGO NOW HAS MASSES EXAM: [id number] TESTICULAR SONO Reason For Procedure: pain STUDY: TESTICULAR SONO CLINICAL INDICATION: Post mastectomy with pain. TECHNIQUE: Ultrasound imaging of the Testicles. COMPARISON: None. FINDINGS: Right testicle measures: 5.0 x 2.1 x 3.2 cm. Normal blood flow right testicle. No solid or cystic nodules are seen. Right epididymis measures 1.5 x 1.4 x 1.4 cm.. 5 mm cyst right epididymis. Small right hydrocele. Left testicle measures: 4.8 x 2.5 x 3.2 cm. Normal blood flow left testicle. No solid or cystic nodules are seen. Left epididymis measures 3.2 x 0.5 x 1.7 cm. 5 mm cyst left epididymis IMPRESSION: NORMAL TESTICLES BILATERALLY SMALL BILATERAL EPIDIDYMAL CYSTS. SITE: O REPORT SIGNED IN OTHER VENDOR SYSTEM 11/17/2022 Reported By: Oz Randhawa MD CC: Technologist: FELIPE MEREDITH Transcribed Date/Time: 11/17/2022 (2816) Truck Driver Salesperson: KRISTIAN Printed Date/Time: 11/17/2022 (1935) PAGE 1 Signed Report Normal [facility] MRIBon 11-03-2022 MRIB Name: SHAYLA MAGAÑA AM Phys: Belinda Khanna APRN.BUSINESS SERVICES ASSOCIATE : 1985 Age: 37 Sex: M Acct: [id number] Loc: [facility] Exam Date: 11/03/2022 Status: REG REF Radiology No: Unit No: [id number] PH: [phone] Diagnosis: HEADACHE,DISORIENTATION,WEA KNESS EXAM: [id number] MR-BRAIN Reason For Procedure: ACUTE CONFUSION ACUTE WEAKNESS MRI HEAD WITHOUT CONTRAST: CLINICAL INDICATION: Weakness and confusion. COMPARISON: None. TECHNIQUE: Multiplanar multiecho sequences. FINDINGS: Cerebrum: Normal for age. Brainstem: Normal for age. Cerebellum: Normal for age. Ventricles: Normal for age. Vasculature: Normal visualized. Extra-axial spaces: Normal for age. Intracranial hemorrhage: None. Midline shift: None. Sella: Empty. Orbits: Intact. Calvarium: Intact. Mastoid air cells: Clear. Paranasal sinuses: Slight ethmoid air cell and maxillary sinus mucosal thickening/small left maxillary sinus mucous retention cyst. Scalp: Intact. IMPRESSION: WITHIN THE RANGE OF NORMAL HEAD MRI EXAM FOR THE PATIENT'S AGE. PAGE 1 Signed Report (CONTINUED) Name: KISHOR MAGAÑA Phys: Belinda Khanna APRN.BUSINESS SERVICES ASSOCIATE : 1985 Age: 37 Sex: M Acct: [id number] Loc: [facility] Exam Date: 11/03/2022 Status: REG REF Radiology No: Unit No: [id number] PH: [phone] Diagnosis: HEADACHE,DISORIENTATION,WEA KNESS EXAM: [id number] MR-BRAIN Reason For Procedure: ACUTE CONFUSION ACUTE WEAKNESS SITE: O REPORT SIGNED IN OTHER VENDOR SYSTEM 11/03/2022 Reported By: James Shields M.D. CC: Technologist: RT IAN/R/ Transcribed Date/Time: 11/03/2022 (0711) Truck Driver Salesperson: KRISTIAN Printed Date/Time: 11/03/2022 (07) PAGE 2 Signed Report Normal [facility] MRIB Name: SHAYLA MAGAÑA AM Phys: Belinda Khanna APRN.BUSINESS SERVICES ASSOCIATE : 1985 Age: 37 Sex: M Acct: [id number] Loc: [facility] Exam Date: 11/03/2022 Status: REG REF Radiology No: Unit No: [id number] PH: [phone] Diagnosis: PERSISTENT HEADACHES, ACUTE CONFUSION EXAM: [id number] MR-BRAIN Reason For Procedure: ACUTE CONFUSION ACUTE WEAKNESS MRI HEAD WITHOUT CONTRAST: CLINICAL INDICATION: Weakness and confusion. COMPARISON: None. TECHNIQUE: Multiplanar multiecho sequences. FINDINGS: Cerebrum: Normal for age. Brainstem: Normal for age. Cerebellum: Normal for age. Ventricles: Normal for age. Vasculature: Normal visualized. Extra-axial spaces: Normal for age. Intracranial hemorrhage: None. Midline shift: None. Sella: Empty. Orbits: Intact. Calvarium: Intact. Mastoid air cells: Clear. Paranasal sinuses: Slight ethmoid air cell and maxillary sinus mucosal thickening/small left maxillary sinus mucous retention cyst. Scalp: Intact. IMPRESSION: WITHIN THE RANGE OF NORMAL HEAD MRI EXAM FOR THE PATIENT'S AGE. PAGE 1 Signed Report (CONTINUED) Name: KISHOR MAGAÑA Phys: Belinda Khanna APRN.BUSINESS SERVICES ASSOCIATE : 1985 Age: 37 Sex: M Acct: [id number] Loc: [facility] Exam Date: 11/03/2022 Status: REG REF Radiology No: Unit No: [id number] PH: [phone] Diagnosis: PERSISTENT HEADACHES, ACUTE CONFUSION EXAM: [id number] MR-BRAIN Reason For Procedure: ACUTE CONFUSION ACUTE WEAKNESS SITE: O REPORT SIGNED IN OTHER VENDOR SYSTEM 11/03/2022 Reported By: James Shields M.D. CC: Technologist: RT IAN/R/MR Transcribed Date/Time: 11/03/2022 (0711) Truck Driver Salesperson: KRISTIAN Printed Date/Time: 11/06/2022 (0823) Batch No: [id number] PAGE 2 Signed Report Normal [facility] EYEFBon 10-27-2022 EYEFB Name: GÓMEZSHAYLA AM Phys: Ok Garcia DO : 1985 Age: 37 Sex: M Acct: [id number] Loc: [facility] Exam Date: 10/27/2022 Status: REG REF Radiology No: Unit No: [id number] PH: [phone] Diagnosis: HEADACHE,DISORIENTATION,WEA KNESS EXAM: [id number] EYE FOR DETECTION OF FB Reason For Procedure: MRI CLEARANCE STUDY: EYE FOR DETECTION OF FB CLINICAL INDICATION: Magnetic resonance imaging clearance. COMPARISON: None TECHNIQUE: [place] and lateral views of the orbits were obtained. FINDINGS: No radiopaque orbital foreign body identified IMPRESSION: No radiopaque orbital foreign body Site: O REPORT SIGNED IN OTHER VENDOR SYSTEM 10/27/2022 Reported By: Oz Randhawa MD CC: Technologist: ABY REDMOND RT/R Transcribed Date/Time: 10/27/2022 (1400) Truck Driver Salesperson: KRISTIAN Printed Date/Time: 10/27/2022 (1400) PAGE 1 Signed Report Normal [facility] LYMES AB TOTAL W/REFLEX TO W Bon 10-22-2022 BORRELIA BURGDORFERI ABS, TOT 0.17 LEVY Normal 0.00-1.20 [facility] Comment on above: Result Comment: When the Borrelia burgdorferi Abs, Total by MIAN result is negative, no further testing is done. INTERPRETIVE INFORMATION: Borrelia Burgdorferi Abs,Total by MIAN 0.99 LEVY or Less: ...... Negative: Antibody to B. burgdorferi not detected. 1.00 - 1.20 LEVY......... Equivocal: Repeat testing in 10-14 days may be helpful. 1.21 LEVY or Greater: ... Positive: Probable presence of antibody to B. burgdorferi detected. Performed By: [employer] [address] [place] [id number] Assembler Trim: Cristhian Hanna MD, PhD Performed By: #### T 4, RAPIDTROP, MG, TSH, PROF #### [facility] [address] [address] ALP SerPl-cCncon 10-19-2022 ALP [Catalytic activity/Vol] 95 U/L Normal 45-117 [facility] Comment on above: Performed By: #### T 4, RAPIDTROP, MG, TSH, PROF #### [facility] [address] [address] ALT SerPl-cCncon 10-19-2022 ALT [Catalytic activity/Vol] 39 U/L Normal 13-61 [facility] Comment on above: Falsely depressed or falsely elevated results may occur onsamples drawn from patients taking Sulfasalazine andSulfapyridine. Result Comment: Fals adri depressed or falsely elevated results may occur on samples drawn from patients taking Sulfasalazine and Sulfapyridine. Performed By: #### T 4, RAPIDTROP, MG, TSH, PROF #### [facility] [address] [address] AST SerPl-cCncon 10-19-2022 AST [Catalytic activity/Vol] 28 U/L Normal 15-37 [facility] Comment on above: Falsely depressed or falsely elevated results may occur onsamples drawn from patients taking Sulfasalazine andSulfapyridine. Result Comment: Fals adri depressed or falsely elevated results may occur on samples drawn from patients taking Sulfasalazine and Sulfapyridine. Performed By: #### T 4, RAPIDTROP, MG, TSH, PROF #### [facility] [address] [address] Albumin SerPl-mCncon 023 Albumin [Mass/Vol] 4.1 g/dL Normal 3.4-5.[address] [facility] Comment on above: Performed By: #### T 4, RAPIDTROP, MG, TSH, PROF #### [facility] [address] [address] Albumin/Glob 24H Ur-mRtoon 0 10-19-2022 Albumin/Globulin (24H U) [Mass ratio] 1.1 1.1-1.8 [facility] Anion Gap SerPl-sCncon 10-19 Anion gap [Moles/Vol] 7.3 mmol/L Normal 0-16 [facility] Comment on above: Performed By: #### T 4, RAPIDTROP, MG, TSH, PROF #### [facility] [address] [address] Appearance Uron 10-19-2022 Appearance (U) CLEAR Normal CLEAR [facility] Comment on above: Performed By: #### T 4, RAPIDTROP, MG, TSH, PROF #### [facility] [address] [address] BUN SerPl-mCncon 10-19-2022 Urea nitrogen [Mass/Vol] 11 mg/dL Normal 7-18 [facility] Comment on above: Performed By: #### T 4, RAPIDTROP, MG, TSH, PROF #### [facility] [address] [address] BUN/creat SerPl-mRtoon 10-19 Urea nitrogen/Creatinine [Mass ratio] 10.6 mg/mg Normal 0-30 [facility] Comment on above: Performed By: #### T 4, RAPIDTROP, MG, TSH, PROF #### [facility] [address] [address] Basophils Auto (Bld) [#/Vol] on 10-19-2022 Basophils (Bld) [#/Vol] 0.10 10*3/uL 0.0-0.2 [facility] Basophils/100 WBC Auto (Bld) on 10-19-2022 Basophils/100 WBC (Bld) 0.7 % 0.0-1.5 [facility] Bile Ac Ur Qlon 10-19-2022 Bile acid Ql (U) Negative NEG [facility] Bilirub SerPl-mCncon 023 Bilirubin [Mass/Vol] 0.30 mg/dL Normal 0.0-1.0 [facility] Comment on above: Use of this assay is not recommended for patients undergoingtreatment with Eltrombopag due to the potential for falselyelevated results. Result Comment: Use of this assay is not recommended for patients undergoing treatment with Eltrombopag due to the potential for falsely elevated results. Performed By: #### T 4, RAPIDTROP, MG, TSH, PROF #### [facility] [address] [address] CBC AUTO DIFF (REFLEX MANUAL )on 10-19-2022 BASOPHIL # 0.10 x10 3/uL Normal 0.0-0.2 [facility] Comment on above: Performed By: #### C BCAD #### [facility] [address] [address] BASOPHIL % 0.7 % Normal 0.0-1.5 [facility] Comment on above: Performed By: #### C BCAD #### [facility] [address] [address] EOSINOPHIL % 3.1 % Normal 0.0-10.0 [facility] Comment on above: Performed By: #### C BCAD #### [facility] [address] [address] LYMPHOCYTE # 2.10 x10 3/uL Normal 1.0-4.8 [facility] Comment on above: Performed By: #### C BCAD #### [facility] [address] [address] LYMPHOCYTE % 27.4 % Normal 13.0-47.0 [facility] Comment on above: Performed By: #### C BCAD #### [facility] [address] [address] MEAN LUIS MANUEL HGB CONC 33.6 g/dl Normal 31.0-37.0 [facility] Comment on above: Performed By: #### C BCAD #### [facility] [address] [address] MEAN CORPUSCULAR HGB 30.0 pg Normal 26.0-34.0 [facility] Comment on above: Performed By: #### C BCAD #### [facility] [address] [address] MEAN CORPUSCULAR VOLUME 89.4 fl Normal 78-98 [facility] Comment on above: Performed By: #### C BCAD #### [facility] [address] [address] MEAN PLATELET VOLUME 8.6 fl Normal 7.5-10.7 [facility] Comment on above: Performed By: #### C BCAD #### [facility] [address] [address] MONOCYTE # 0.60 x10 3/uL Normal 0.0-1.0 [facility] Comment on above: Performed By: #### C BCAD #### [facility] [address] [address] MONOCYTE % 7.5 % Normal 0.0-10.0 [facility] Comment on above: Performed By: #### C BCAD #### [facility] [address] [address] NEUT# 4.60 x10 3/uL Normal 1.8-7.7 [facility] Comment on above: Performed By: #### C BCAD #### [facility] [address] [address] NEUTROPHIL % 61.3 % Normal 40.0-80.0 [facility] Comment on above: Performed By: #### C BCAD #### [facility] [address] [address] PLATELET 268 x10 3/uL Normal 150-350 [facility] Comment on above: Performed By: #### C BCAD #### [facility] [address] [address] RED BLOOD CELL COUNT 5.00 x10 6/uL Normal 4.50-5.90 [facility] Comment on above: Performed By: #### C BCAD #### [facility] [address] [address] RED CELL WIDTH 13.6 % Normal 11.5-14.5 [facility] Comment on above: Performed By: #### C BCAD #### [facility] [address] [address] TOTAL EO 0.20 x10 3/uL Normal 0-1.0 [facility] Comment on above: Performed By: #### C BCAD #### [facility] [address] [address] WHITE BLOOD CELL COUNT 7.5 x10 3/uL Normal 4.5-11.0 [facility] Comment on above: Performed By: #### C BCAD #### [facility] [address] [address] [facility] CO2 [Moles/Vol] 29 mmol/L Normal 21-32 [facility] Comment on above: TCO2 test measures t otal amount of CO2 in the blood, whichoccurs mostly in the form of bicarbonate (HCO3). Result Comment: TCO2 test measures total amount of CO2 in the blood, which occurs mostly in the form of bicarbonate (HCO3). Performed By: #### T 4, RAPIDTROP, MG, TSH, PROF #### [facility] [address] [address] COMPREHENSIVE METABOLICon ADJUSTED CALCIUM 9.3 MG/DL Normal [facility] Comment on above: Performed By: #### T 4, RAPIDTROP, MG, TSH, PROF #### [facility] [address] [address] Albumin/Globulin [Mass ratio] 1.1 {ratio} Normal 1.1-1.8 [facility] Comment on above: Performed By: #### T 4, RAPIDTROP, MG, TSH, PROF #### [facility] [address] [address] eGFR, All other > 60 Normal >60 [facility] Comment on above: Result Comment: Aver age GFR for 30-39 years old = 107 ml/min/1.73 sq.m Chronic Kidney Disease - GFR generally <60 ml/min/1.73 sq.m Kidney Failure - GFR generally <15 ml/min/1.73 sq.m Performed By: #### T 4, RAPIDTROP, MG, TSH, PROF #### [facility] [address] [address] GFR/1.73 sq M.predicted among blacks MDRD (S/P/Bld) [Vol rate/Area] mL/min/{1.73_m2} Normal >60 [facility] Comment on above: Performed By: #### T 4, RAPIDTROP, MG, TSH, PROF #### [facility] [address] [address] Calcium Album cor SerPl-mCnc on 10-19-2022 Calcium corrected for albumin [Mass/Vol] 9.3 [facility] Calcium SerPl-mCncon 023 Calcium [Mass/Vol] 9.4 mg/dL Normal 8.5-10.[address] [facility] Comment on above: Performed By: #### T 4, RAPIDTROP, MG, TSH, PROF #### [facility] [address] [address] Chloride SerPl-sCncon 2022 Chloride [Moles/Vol] 108 mmol/L High 98-107 [facility] Comment on above: Performed By: #### T 4, RAPIDTROP, MG, TSH, PROF #### [facility] [address] [address] Cholest SerPl-mCncon 023 Cholesterol [Mass/Vol] 166 mg/dL Normal <200 [facility] Comment on above: Performed By: #### T 4, RAPIDTROP, MG, TSH, PROF #### [facility] [address] [address] Cholesterol in LDL Calc [Mas s/Vol]on 10-19-2022 Cholesterol in LDL [Mass/Vol] 105 mg/dL SEE COMMENT [facility] Comment on above: The National Cholest katerina Education Program's (NCEP)Adult Treatment Panel III (ATPIII) guidelines for lipidsare as follows: LDL Cholesterol - Primary Target of Therapy Target value for LDL is based on overall risk of heart disease: <100 MG/DL Is desirable if clinical atherosclerotic disease or diabetes has been diagnosed. <130 MG/DL Is desirable if 2 or more risk factors are present. Total Cholesterol <200 Desirable 200-239 Borderline High >239 High HDL Cholesterol <40 Low >59 Desirable Serum Triglycerides <150 Normal 150-199 Borderline High 200-499 High >499 Very High The lipid profile should be correlated with the presence of other risk factors for coronary heart disease. Additional information is available at: www.nhlbi.nih.gov/guidelines/cholesterol/index.htm. Color Uron 10-19-2022 Color (U) YELLOW Normal YELLOW [facility] Comment on above: Performed By: #### T 4, RAPIDTROP, MG, TSH, PROF #### [facility] [address] [address] Creat SerPl-mCncon 3 Creatinine [Mass/Vol] 1.04 mg/dL Normal 0.70-1.30 [facility] Comment on above: Performed By: #### T 4, RAPIDTROP, MG, TSH, PROF #### [facility] [address] [address] DRUG SCREEN URINEon 10-19-19 6-ACETYL MORPHPHINE SCREEN Not detected Normal None Detect [facility] Comment on above: Performed By: #### D RSCREEN #### [facility] [address] [address] AMPHETAMINE SCREEN Not detected Normal None Detect [facility] Comment on above: Performed By: #### D RSCREEN #### [facility] [address] [address] BARBITURATE SCREEN Not detected Normal None Detect [facility] Comment on above: Performed By: #### D RSCREEN #### [facility] [address] [address] BENZODIAZEPINE SCREEN Not detected Normal None Detect [facility] Comment on above: Performed By: #### D RSCREEN #### [facility] [address] [address] BUPRENORPHINE (SUBOXONE) Not detected Normal None Detect [facility] Comment on above: Performed By: #### D RSCREEN #### [facility] [address] [address] Cannabinoids Screen Ql (U) Not detected Normal None Detect [facility] Comment on above: Performed By: #### D RSCREEN #### [facility] [address] [address] COCAINE METABOLITE SCREEN Not detected Normal None Detect [facility] Comment on above: Performed By: #### D RSCREEN #### [facility] [address] [address] METHADONE SCREEN Not detected Normal None Detect [facility] Comment on above: Performed By: #### D RSCREEN #### [facility] [address] [address] Opiates Ql (U) Not detected Normal None Detect [facility] Comment on above: Performed By: #### D RSCREEN #### [facility] [address] [address] OXYCODONE SCREEN Not detected Normal None Detect [facility] Comment on above: Result Comment: This test will also detect other related compounds; Codeine, Dihydrocodeine, Hydrocodone, Hydromorphone, and Oxymorphone. New Methodology Effective 12/11/2017. Performed By: #### D RSCREEN #### [facility] [address] [address] Specific gravity (U) [Rel density] 1.019 Normal 1.002-1.03 0 [facility] Comment on above: Result Comment: This is a screening test and the results should be used for medical purposes only. Performed By: #### D RSCREEN #### [facility] [address] [address] Eosinophils Manual cnt (Bld) [#/Vol]on 10-19-2022 Eosinophils (Bld) [#/Vol] 0.20 10*3/uL 0-1.0 [facility] GFR/BSA.pred SerPl MDRD-vRat [place]ton 10-19-2022 GFR/1.73 sq M.predicted MDRD (S/P/Bld) [Vol rate/Area] mL/min/{1.73_m2} >60 [facility] Comment on above: Average GFR for 30-3 9 years old = 107 ml/min/1.73 sq.mChronic Kidney Disease - GFR generally <60 ml/min/1.73 sq.mKidney Failure - GFR generally <15 ml/min/1.73 sq.m Glucose [facility]-mCncon 023 Glucose [Mass/Vol] 89 mg/dL Normal 70-[address] [facility] Comment on above: Falsely depressed or falsely elevated results may occur onsamples drawn from patients taking Sulfasalazine andSulfapyridine. ADA Guidelines for Diabetes:Fasting glucose <100 = Normal fasting glucose.Fasting glucose 100-125 = Impaired fasting glucose, also referred to as pre-diabetes .Fasting glucose >125 = Provisional diagnosis of diabetes. Diagnosis must be confirmed by repeat testing on a different day. Result Comment: Fals adri depressed or falsely elevated results may occur on samples drawn from patients taking Sulfasalazine and Sulfapyridine. ADA Guidelines for Diabetes: Fasting glucose <100 = Normal fasting glucose. Fasting glucose 100-125 = Impaired fasting glucose, also referred to as pre-diabetes . Fasting glucose >125 = Provisional diagnosis of diabetes. Diagnosis must be confirmed by repeat testing on a different day. Performed By: #### T 4, RAPIDTROP, MG, TSH, PROF #### [facility] [address] [address] Glucose Ur Ql Strip.autoon 0 10-19-2022 Glucose Auto test strip Ql (U) Negative NEG [facility] HDLc SerPl-ncon 10-19-2022 Cholesterol in HDL [Mass/Vol] 38.0 mg/dL Low >40 [facility] Comment on above: Performed By: #### T 4, RAPIDTROP, MG, TSH, PROF #### [facility] [address] [address] HEMOGLOBIN A1Con 10-19-2022 Glucose [Mass/Vol] 103 mg/dL Normal [facility] Comment on above: Result Comment: The estimated average glucose was calculated using the ADA equation (28.7 x HBA1c)-46.7 . Performed By: #### T 4, RAPIDTROP, MG, TSH, PROF #### [facility] [address] [address] Hgb A1c SFr Bld HPLCon 10-19 HbA1c (Bld) [Mass fraction] 5.2 % Normal 3.8-5.6 [facility] Comment on above: New Reference Range effective 2020. Result Comment: New Reference Range effective 2020. Performed By: #### T 4, RAPIDTROP, MG, TSH, PROF #### [facility] [address] [address] Hgb Bld-mCncon 10-19-2022 Hemoglobin (Bld) [Mass/Vol] 15.0 g/dL 13.0-16.0 [facility] Hgb Ur Ql Strip.autoon 10-19 Hemoglobin Auto test strip Ql (U) Negative NEG [facility] Ketones Ur Ql Strip.autoon 0 10-19-2022 Ketones Auto test strip Ql (U) Negative NEG [facility] LIPID PANELon 10-19-2022 LDL,CALC 105 Normal SEE COMMENT [facility] Comment on above: Result Comment: The National Cholesterol Education Program's (NCEP) Adult Treatment Panel III (ATPIII) guidelines for lipids are as follows: LDL Cholesterol - Primary Target of Therapy Target value for LDL is based on overall risk of heart disease: <100 MG/DL Is desirable if clinical atherosclerotic disease or diabetes has been diagnosed. <130 MG/DL Is desirable if 2 or more risk factors are present. Total Cholesterol <200 Desirable 200-239 Borderline High >239 High HDL Cholesterol <40 Low >59 Desirable Serum Triglycerides <150 Normal 150-199 Borderline High 200-499 High >499 Very High The lipid profile should be correlated with the presence of other risk factors for coronary heart disease. Additional information is available at: www.nhlbi.nih.gov/guidelines/cholesterol/index.htm. Performed By: #### T 4, RAPIDTROP, MG, TSH, PROF #### [place] [address] Laboratory - Hematology and Cell countson 10-19-2022 Eosinophils/100 WBC (Bld) 3.1 % 0.0-10.0 [facility] Erythrocyte distribution width (RBC) [Ratio] 13.6 % 11.5-14.5 [facility] Hematocrit Auto (Bld) [Pure volume fraction] 44.7 41-53 [facility] Lymphocytes/100 WBC (Bld) 27.4 % 13.0-47.0 [facility] Monocytes/100 WBC (Bld) 7.5 % 0.0-10.0 [facility] Neutrophils/100 WBC (Bld) 61.3 % 40.0-80.0 [facility] Platelet mean volume (Bld) [Entitic vol] 8.6 fL 7.5-10.7 [facility] Lymphocytes Auto (Bld) [#/Vo l]on 10-19-2022 Lymphocytes (Bld) [#/Vol] 2.10 10*3/uL 1.0-4.8 [facility] MCH Auto (RBC) [Entitic mass ]on 10-19-2022 MCH (RBC) [Entitic mass] 30.0 pg 26.0-34.0 [facility] MCHC Auto (RBC) [Mass/Vol]on 10-19-2022 MCHC (RBC) [Mass/Vol] 33.6 g/dL 31.0-37.0 [facility] MCV Auto (RBC) [Entitic vol] on 10-19-2022 MCV (RBC) [Entitic vol] 89.4 fL 78-98 [facility] Monocytes Auto (Bld) [#/Vol] on 10-19-2022 Monocytes (Bld) [#/Vol] 0.60 10*3/uL 0.0-1.0 [facility] Neutrophils Auto (Bld) [#/Vo l]on 10-19-2022 Neutrophils (Bld) [#/Vol] 4.60 10*3/uL 1.8-7.7 [facility] Nitrite Ur Ql Strip.autoon 0 10-19-2022 Nitrite Auto test strip Ql (U) Negative NEG [facility] No Panel Informationon 10-19 Estimated Mean Plasma Glucose 103 [facility] Comment on above: The estimated averag e glucose was calculated using theADA equation (28.7 x HBA1c)-46.7 . Urine Ascorbic Acid Level Negative NEG [facility] Platelet # [place] 10-19-2022 Platelets (Bld) [#/Vol] 268 10*3/uL 150-350 [facility] Potassium SerPl-sCncon 10-19 Potassium [Moles/Vol] 4.3 mmol/L Normal 3.5-5.1 [facility] Comment on above: Performed By: #### T 4, RAPIDTROP, MG, TSH, PROF #### [facility] [address] [address] Prot SerPl-mCncon 10-19-2022 Protein [Mass/Vol] 8.0 g/dL Normal 6.4-8.[address] [facility] Comment on above: Performed By: #### T 4, RAPIDTROP, MG, TSH, PROF #### [facility] [address] [address] Prot Ur Ql Strip.autoon 09-25 Protein Auto test strip Ql (U) Negative NEG [facility] RBC Auto (Bld) [#/Vol]on RBC (Bld) [#/Vol] 5.00 10*6/uL 4.50-5.90 [facility] ROUTINE URINE WITH RFLX CULT on 10-19-2022 Glucose Ql (U) Negative Normal NEG [facility] Comment on above: Performed By: #### T 4, RAPIDTROP, MG, TSH, PROF #### [facility] [address] [address] Nitrite Ql (U) Negative Normal NEG [facility] Comment on above: Performed By: #### T 4, RAPIDTROP, MG, TSH, PROF #### [facility] [address] [address] Protein Ql (U) Negative Normal NEG [facility] Comment on above: Performed By: #### T 4, RAPIDTROP, MG, TSH, PROF #### [facility] [address] [address] REFLEX CULTURE? NO Normal [facility] Comment on above: Performed By: #### T 4, RAPIDTROP, MG, TSH, PROF #### [facility] [address] [address] URINE ASCORBIC ACID Negative Normal NEG [place] Comment on above: Performed By: #### T 4, RAPIDTROP, MG, TSH, PROF #### [facility] [address] [address] URINE BILE Negative Normal NEG [facility] Comment on above: Performed By: #### T 4, RAPIDTROP, MG, TSH, PROF #### [facility] [address] [address] URINE HEMOGLOBIN Negative Normal NEG [facility] Comment on above: Performed By: #### T 4, RAPIDTROP, MG, TSH, PROF #### [facility] [address] [address] URINE KETONE Negative Normal NEG [facility] Comment on above: Performed By: #### T 4, RAPIDTROP, MG, TSH, PROF #### [facility] [address] [address] URINE LEUKOCYTES Negative Normal NEG [facility] Comment on above: Performed By: #### T 4, RAPIDTROP, MG, TSH, PROF #### [facility] [address] [address] Urobilinogen (U) [Mass/Vol] Negative Normal <2.0 [facility] Comment on above: Performed By: #### T 4, RAPIDTROP, MG, TSH, PROF #### [facility] [address] [address] Sodium SerPl-sCncon 10-19-19 23 Sodium [Moles/Vol] 140 mmol/L Normal 136-[address] [facility] Comment on above: Performed By: #### T 4, RAPIDTROP, MG, TSH, PROF #### [facility] [address] [address] Sp Gr Ur Strip.autoon 2022 Specific gravity (U) [Rel density] 1.018 Normal 1.002-1.03 0 [facility] Comment on above: Performed By: #### T 4, RAPIDTROP, MG, TSH, PROF #### [facility] [address] [address] T4 SerPl-mCncon 10-19-2022 T4 [Mass/Vol] 9.4 ug/dL Normal 4.7-13.3 [facility] Comment on above: Falsely depressed or falsely elevated results may occur onsamples drawn from patients taking Sulfasalazine andSulfapyridine. Result Comment: Fals adri depressed or falsely elevated results may occur on samples drawn from patients taking Sulfasalazine and Sulfapyridine. Performed By: #### T 4, RAPIDTROP, MG, TSH, PROF #### [facility] [address] [address] TSH DL <= 0.005 mIU/L Qnon 0 10-19-2022 TSH Qn 0.582 m[IU]/L 0.358-3.74 0 [facility] TSH, 3RD GENERATIONon 2022 TSH, 3RD GENERATION 0.582 uIU/ML Normal 0.358-3. 74 0 [facility] Comment on above: Performed By: #### T 4, RAPIDTROP, MG, TSH, PROF #### [facility] [address] [address] Trigl SerPl-mCncon 3 Triglyceride [Mass/Vol] 114 mg/dL Normal <150 [facility] Comment on above: Performed By: #### T 4, RAPIDTROP, MG, TSH, PROF #### [facility] [address] [address] Urobilinogen Test strip Ql ( U)on 10-19-2022 Urobilinogen Ql (U) Negative <2.0 [facility] VITAMIN D, 25 HYDROXYon 09-25 VITAMIN D, 25 HYDROXY 14.68 ng/mL Low -100 [facility] Comment on above: Result Comment: Vitamin D Total assay is in alignment with the 25(OH) Vitamin D Reference Measurement Procedure (RMP). This assay is a certified procedure of the CDC Vitamin D Standardization-Certification Program (VDSCP). Performed By: #### T 4, RAPIDTROP, MG, TSH, PROF #### [facility] [address] [address] Vit B12 Ser-mCncon 3 Cobalamin (Vitamin B12) [Mass/Vol] 504 pg/mL Normal 193-986 [facility] Comment on above: Performed By: #### T 4, RAPIDTROP, MG, TSH, PROF #### [facility] [address] [address] Vit D25 SerPl-mCncon 023 25-hydroxyvitamin D3 [Mass/Vol] 14.68 ng/mL 30-100 [facility] Comment on above: Vitamin D Total assa y is in alignment with the25(OH) Vitamin D Reference Measurement Procedure (RMP).This assay is a certified procedure of the CDCVitamin D Standardization-Certification Program (VDSCP). WBC Auto (Bld) [#/Vol]on WBC (Bld) [#/Vol] 7.5 10*3/uL 4.5-11.[address] [facility] WBC Ur Ql Autoon 10-19-2022 WBC Auto Ql (U) Negative NEG [facility] pH Ur Strip.autoon pH (U) 8.0 [pH] Normal 4.6-8.0 [facility] Comment on above: Performed By: #### T 4, RAPIDTROP, MG, TSH, PROF #### [facility] [address] [address] CBC AUTO DIFF (REFLEX MANUAL )on 10-15-2022 BASOPHIL # 0.10 x10 3/uL Normal 0.0-0.2 [facility] Comment on above: Performed By: #### C BCAD #### [facility] [address] [address] BASOPHIL % 0.8 % Normal 0.0-1.5 [facility] Comment on above: Performed By: #### C BCAD #### [facility] [address] [address] EOSINOPHIL % 5.2 % Normal 0.0-10.0 [facility] Comment on above: Performed By: #### C BCAD #### [facility] [address] [address] LYMPHOCYTE # 2.00 x10 3/uL Normal 1.0-4.8 [facility] Comment on above: Performed By: #### C BCAD #### [facility] [address] [address] LYMPHOCYTE % 31.0 % Normal 13.0-47.0 [facility] Comment on above: Performed By: #### C BCAD #### [facility] [address] [address] MEAN LUIS MANUEL HGB CONC 34.1 g/dl Normal 31.0-37.0 [facility] Comment on above: Performed By: #### C BCAD #### [facility] [address] [address] MEAN CORPUSCULAR HGB 30.1 pg Normal 26.0-34.0 [facility] Comment on above: Performed By: #### C BCAD #### [facility] [address] [address] MEAN CORPUSCULAR VOLUME 88.4 fl Normal 78-98 [facility] Comment on above: Performed By: #### C BCAD #### [facility] [address] [address] MEAN PLATELET VOLUME 7.9 fl Normal 7.5-10.7 [facility] Comment on above: Performed By: #### C BCAD #### [facility] [address] [address] MONOCYTE # 0.70 x10 3/uL Normal 0.0-1.0 [facility] Comment on above: Performed By: #### C BCAD #### [facility] [address] [address] MONOCYTE % 10.4 % High 0.0-10.0 [facility] Comment on above: Performed By: #### C BCAD #### [facility] [address] [address] NEUT# 3.50 x10 3/uL Normal 1.8-7.7 [facility] Comment on above: Performed By: #### C BCAD #### [facility] [address] [address] NEUTROPHIL % 52.6 % Normal 40.0-80.0 [facility] Comment on above: Performed By: #### C BCAD #### [facility] [address] [address] PLATELET 244 x10 3/uL Normal 150-350 [facility] Comment on above: Performed By: #### C BCAD #### [facility] [address] [address] RED BLOOD CELL COUNT 4.77 x10 6/uL Normal 4.50-5.90 [facility] Comment on above: Performed By: #### C BCAD #### [facility] [address] [address] RED CELL WIDTH 13.8 % Normal 11.5-14.5 [facility] Comment on above: Performed By: #### C BCAD #### [facility] [address] [address] TOTAL EO 0.30 x10 3/uL Normal 0-1.0 [facility] Comment on above: Performed By: #### C BCAD #### [facility] [address] [address] WHITE BLOOD CELL COUNT 6.6 x10 3/uL Normal 4.5-11.0 [facility] Comment on above: Performed By: #### C BCAD #### [facility] [address] [address] COMPREHENSIVE METABOLICon ADJUSTED CALCIUM 9.3 MG/DL Normal [facility] Comment on above: Performed By: #### T 4, RAPIDTROP, MG, TSH, PROF #### [facility] [address] [address] Albumin [Mass/Vol] 3.6 g/dL Normal 3.4-5.0 [facility] Comment on above: Performed By: #### T 4, RAPIDTROP, MG, TSH, PROF #### [facility] [address] [address] Albumin/Globulin [Mass ratio] 1.0 {ratio} Low 1.1-1.8 [facility] Comment on above: Performed By: #### T 4, RAPIDTROP, MG, TSH, PROF #### [facility] [address] [address] ALP [Catalytic activity/Vol] 95 U/L Normal 45-117 [facility] Comment on above: Performed By: #### T 4, RAPIDTROP, MG, TSH, PROF #### [facility] [address] [address] ALT [Catalytic activity/Vol] 25 U/L Normal 13-61 [facility] Comment on above: Result Comment: Fals adri depressed or falsely elevated results may occur on samples drawn from patients taking Sulfasalazine and Sulfapyridine. Performed By: #### T 4, RAPIDTROP, MG, TSH, PROF #### [facility] [address] [address] Anion gap [Moles/Vol] 7.6 mmol/L Normal 0-16 [facility] Comment on above: Performed By: #### T 4, RAPIDTROP, MG, TSH, PROF #### [facility] [address] [address] AST [Catalytic activity/Vol] 18 U/L Normal 15-37 [facility] Comment on above: Result Comment: Fals adri depressed or falsely elevated results may occur on samples drawn from patients taking Sulfasalazine and Sulfapyridine. Performed By: #### T 4, RAPIDTROP, MG, TSH, PROF #### [facility] [address] [address] Bilirubin [Mass/Vol] 0.30 mg/dL Normal 0.0-1.0 [facility] Comment on above: Result Comment: Use of this assay is not recommended for patients undergoing treatment with Eltrombopag due to the potential for falsely elevated results. Performed By: #### T 4, RAPIDTROP, MG, TSH, PROF #### [facility] [address] [address] Calcium [Mass/Vol] 9.0 mg/dL Normal 8.5-10.1 [facility] Comment on above: Performed By: #### T 4, RAPIDTROP, MG, TSH, PROF #### [facility] [address] [address] Chloride [Moles/Vol] 109 mmol/L High 98-107 [facility] Comment on above: Performed By: #### T 4, RAPIDTROP, MG, TSH, PROF #### [facility] [address] [address] CO2 [Moles/Vol] 28 mmol/L Normal 21-32 [facility] Comment on above: Result Comment: TCO2 test measures total amount of CO2 in the blood, which occurs mostly in the form of bicarbonate (HCO3). Performed By: #### T 4, RAPIDTROP, MG, TSH, PROF #### [facility] [address] [address] Creatinine [Mass/Vol] 0.91 mg/dL Normal 0.70-1.30 [facility] Comment on above: Performed By: #### T 4, RAPIDTROP, MG, TSH, PROF #### [facility] [address] [address] eGFR, All other > 60 Normal >60 [facility] Comment on above: Result Comment: Aver age GFR for 30-39 years old = 107 ml/min/1.73 sq.m Chronic Kidney Disease - GFR generally <60 ml/min/1.73 sq.m Kidney Failure - GFR generally <15 ml/min/1.73 sq.m Performed By: #### T 4, RAPIDTROP, MG, TSH, PROF #### [facility] [address] [address] GFR/1.73 sq M.predicted among blacks MDRD (S/P/Bld) [Vol rate/Area] mL/min/{1.73_m2} Normal >60 [facility] Comment on above: Performed By: #### T 4, RAPIDTROP, MG, TSH, PROF #### [facility] [address] [address] Glucose [Mass/Vol] 105 mg/dL Normal 70-110 [facility] Comment on above: Result Comment: Fals adri depressed or falsely elevated results may occur on samples drawn from patients taking Sulfasalazine and Sulfapyridine. ADA Guidelines for Diabetes: Fasting glucose <100 = Normal fasting glucose. Fasting glucose 100-125 = Impaired fasting glucose, also referred to as pre-diabetes . Fasting glucose >125 = Provisional diagnosis of diabetes. Diagnosis must be confirmed by repeat testing on a different day. Performed By: #### T 4, RAPIDTROP, MG, TSH, PROF #### [facility] [address] [address] Potassium [Moles/Vol] 3.6 mmol/L Normal 3.5-5.1 [facility] Comment on above: Performed By: #### T 4, RAPIDTROP, MG, TSH, PROF #### [facility] [address] [address] Protein [Mass/Vol] 7.2 g/dL Normal 6.4-8.2 [facility] Comment on above: Performed By: #### T 4, RAPIDTROP, MG, TSH, PROF #### [facility] [address] [address] Sodium [Moles/Vol] 141 mmol/L Normal 136-145 [facility] Comment on above: Performed By: #### T 4, RAPIDTROP, MG, TSH, PROF #### [facility] [address] [address] Urea nitrogen [Mass/Vol] 10 mg/dL Normal 7-18 [facility] Comment on above: Performed By: #### T 4, RAPIDTROP, MG, TSH, PROF #### [facility] [address] [address] Urea nitrogen/Creatinine [Mass ratio] 10.9 mg/mg Normal 0-30 [facility] Comment on above: Performed By: #### T 4, RAPIDTROP, MG, TSH, PROF #### [facility] [address] [address] CXRon 10-15-2022 CXR Name: SHAYLA MAGAÑA AM Phys: Yesica Ramos DO : 1985 Age: 37 Sex: M Acct: [id number] Loc: SUN Exam Date: 10/15/2022 Status: REG ER Radiology No: Unit No: [id number] PH: [phone] Diagnosis: WEAKNESS FOR 1 MONTH EXAM: [id number] CHEST-STANDARD FRONTAL LAT Reason For Procedure: PAIN STUDY: CHEST-STANDARD FRONTAL LAT CLINICAL INDICATION: Weakness. Chest pain. TECHNIQUE: 2 view chest COMPARISON: none. FINDINGS: Minimal linear scar atelectasis left base.. Pulmonary vascularity is unremarkable. Heart size is normal. Costophrenic angles are clear. There is no pneumothorax. IMPRESSION: MINIMAL LINEAR SCAR OR ATELECTASIS LEFT BASE SITE: P REPORT SIGNED IN OTHER VENDOR SYSTEM 10/15/2022 Reported By: Ok Garcia DO CC: Technologist: EDUARDA CHAMORRO, RT/R Transcribed Date/Time: 10/15/2022 (0838) Truck Driver Salesperson: KRISTIAN Printed Date/Time: 10/15/2022 (1307) PAGE 1 Signed Report Normal [facility] MAGNESIUMon 10-15-2022 Magnesium [Mass/Vol] 2.1 mg/dL Normal 1.6-2.6 [facility] Comment on above: Performed By: #### T 4, RAPIDTROP, MG, TSH, PROF #### [facility] [address] [address] Magnesium SerPl-mCncOrdered By: Yesica Ramos on 10-15-2022 Magnesium [Mass/Vol] 2.1 mg/dL 1.6-2.6 [facility] No Panel InformationOrdered By: Yesica Ramos on 10-15-2022 Troponin I High Sensitivity 3 <78 [facility] Comment on above: Effective September, [facility] is replacingthe old Cardiac Troponin I assay with High-SensitivityCardiac troponin (TNIH). This new assay has improvedprecision and analytic sensitivity. Please note the new reference ranges and change in units ofmeasurements: Method: Siemens Dimension [place] Reference Range: Males: <78 ng/L Females: <54 ng/L WARNING: Different methodologies give potentiallysignificantly different numerical values. Do not compareresults between different Laboratories. For diagnostic purposes, the results should always beassessed in conjunction with the patient's medical history,clinical examination and other findings. The Lefor Definition of AMI takes into consideration theESC/ACC/AHA/WHF definition recommending the detection of arise and/or fall of cardiac troponin in the clinical settingwith at least one value above the 99th percentile upperreference limit. Due to the release kinetics of cardiactroponin I, an initial test result may not be definitive indiagnosing DE. Serial cardiac troponin measurements aresuggested. Troponins are released during the process of myocyteinjury/necrosis. While they are cardiac-specific, they arenot specific for DE, and detectable levels may be seen inother disease states that involve the heart muscle, so thatACC/ESC/AHA guidelines and the Lefor Definition of MIrecommend serial sampling with a rise or fall in troponin todistinguish between acute and chronic Cardiac Troponinelevations. RapidTrop I HSon 10-15-2022 Troponin I H.S. 3 NG/L Normal <78 [facility] Comment on above: Result Comment: Effe ctive October 12, 2021, [facility] is replacing the old Cardiac Troponin I assay with High-Sensitivity Cardiac troponin (TNIH). This new assay has improved precision and analytic sensitivity. Please note the new reference ranges and change in units of measurements: Method: Siemens Dimension [place] Reference Range: Males: <78 ng/L Females: <54 ng/L WARNING: Different methodologies give potentially significantly different numerical values. Do not compare results between different Laboratories. For diagnostic purposes, the results should always be assessed in conjunction with the patient's medical history, clinical examination and other findings. The Lefor Definition of AMI takes into consideration the ESC/ACC/AHA/WHF definition recommending the detection of a rise and/or fall of cardiac troponin in the clinical setting with at least one value above the 99th percentile upper reference limit. Due to the release kinetics of cardiac troponin I, an initial test result may not be definitive in diagnosing DE. Serial cardiac troponin measurements are suggested. Troponins are released during the process of myocyte injury/necrosis. While they are cardiac-specific, they are not specific for DE, and detectable levels may be seen in other disease states that involve the heart muscle, so that ACC/ESC/AHA guidelines and the Lefor Definition of DE recommend serial sampling with a rise or fall in troponin to distinguish between acute and chronic Cardiac Troponin elevations. Performed By: #### T 4, RAPIDTROP, MG, TSH, PROF #### [facility] [address] [address] T4on 10-15-2022 T4 [Mass/Vol] 8.7 ug/dL Normal 4.7-13.3 [facility] Comment on above: Result Comment: Fals adri depressed or falsely elevated results may occur on samples drawn from patients taking Sulfasalazine and Sulfapyridine. Performed By: #### T 4, RAPIDTROP, MG, TSH, PROF #### [facility] [address] [address] TSH, 3RD GENERATIONon 2022 TSH, 3RD GENERATION 1.170 uIU/ML Normal 0.358-3. 74 0 [facility] Comment on above: Performed By: #### T 4, RAPIDTROP, MG, TSH, PROF #### [facility] [address] [address] SURGICAL PATHOLOGY EXAMon SURGICAL PATHOLOGY EXAM Surgical Pathology Report Case: [id number] Authorizing Provider: Ivan Mckeon MD Collected: 06/16/2022 0956 Order[facility] Location: [facility] Received: 06/17/2022 193 Pathologist: Eula Matthew MD Specimens: A) - Vas deferens?sterilization, LEFT B) - Vas deferens?sterilization, RIGHT Diagnoses: Encounter for vasectomy A. vas deferens, left, vasectomy: -Complete cross sections of unremarkable vas deferens B. vas deferens, right, vasectomy: -Complete cross sections of unremarkable vas deferens CPT CODE(S): 02439 x2 A. Received in formalin labeled with the patient's name and left vas is an elongated segment of rubbery white tissue measuring 6 mm in length and 2 mm in diameter, submitted entirely in 1 cassette. B. Received in formalin labeled with the patient's name and R vas is an elongated segment of rubbery white tissue measuring 4 mm in length and 2 mm in diameter, submitted entirely in 1 cassette. (JMT) Normal [facility] Comment on above: Performed By: #### S URCASE #### [address] GCon 12-05-2021 CHLAMYDIA AMPLIFIED PROBE Negative Normal Negative [facility] Comment on above: Performed By: #### 4 [id number] #### [facility] [place] [phone] GC AMPLIFIED PROBE Negative Normal Negative [facility] Comment on above: Performed By: #### 4 [id number] #### [facility] [place] [phone] CBC WITH DIFFERENTIALon 11-22 ABSOLUTE BASO 0.0 10 3/uL Normal 0.0-0.1 [facility] Comment on above: Performed By: #### 4 [id number] #### [place] [address] ABSOLUTE EOSIN 0.3 10 3/uL Normal 0.1-0.3 [facility] Comment on above: Performed By: #### 4 [id number] #### [place] [address] ABSOLUTE LYMPH 2.2 10 3/uL Normal 1.2-3.3 [facility] Comment on above: Performed By: #### 4 [id number] #### [employer] [place] [phone] ABSOLUTE MONO 0.6 10 3/uL Normal 0.2-0.6 [facility] Comment on above: Performed By: #### 4 [id number] #### [facility] [place] [address] [place] [address] ABSOLUTE NEUT 4.1 10 3/uL Normal 2.4-6.6 [facility] Comment on above: Performed By: #### 4 [id number] #### [place] [address] Basophils/100 WBC (Bld) 0.5 % Normal [facility] Comment on above: Performed By: #### 4 [id number] #### [place] [address] Eosinophils/100 WBC (Bld) 3.4 % Normal [facility] Comment on above: Performed By: #### 4 [id number] #### [place] [address] Erythrocyte distribution width (RBC) [Ratio] 13.5 % Normal 11.5-14.5 [facility] Comment on above: Performed By: #### 4 [id number] #### [place] [address] Hematocrit (Bld) [Volume fraction] 41.1 % Normal 37.7-51.1 [facility] Comment on above: Performed By: #### 4 [id number] #### [place] [address] Hemoglobin (Bld) [Mass/Vol] 14.0 g/dL Normal 12.8-17.7 [facility] Comment on above: Performed By: #### 4 [id number] #### [place] [address] IG ABSOLUTE 0.0 10 3/uL Normal 0 [facility] Comment on above: Performed By: #### 4 [id number] #### [place] [address] IG PERCENT 0.3 % Normal [facility] Comment on above: Performed By: #### 4 [id number] #### [facility] [place] [address] Lymphocytes/100 WBC (Bld) 30.8 % Normal [facility] Comment on above: Performed By: #### 4 [id number] #### [place] [address] MCH (RBC) [Entitic mass] 29.4 pg Normal 27.0-34.2 [facility] Comment on above: Performed By: #### 4 [id number] #### [place] [address] MCHC (RBC) [Mass/Vol] 34.1 g/dL Normal 31.4-36.2 [facility] Comment on above: Performed By: #### 4 [id number] #### [place] [address] MCV (RBC) [Entitic vol] 86.3 fL Normal 80.6-99.0 [facility] Comment on above: Performed By: #### 4 [id number] #### [place] [address] Monocytes/100 WBC (Bld) 8.8 % Normal [facility] Comment on above: Performed By: #### 4 [id number] #### [place] [address] Neutrophils/100 WBC (Bld) 56.2 % Normal [facility] Comment on above: Performed By: #### 4 [id number] #### [facility] [place] [place] [address] NRBC 0 Normal 0-1 [facility] Comment on above: Performed By: #### 4 [id number] #### [place] [address] PLATELET 267.0 x10 3/uL Normal 150.0-400. 0 [facility] Comment on above: Performed By: #### 4 [id number] #### [facility] [place] [address] RBC 4.76 x10 6/uL Normal 3.70-5.70 [facility] Comment on above: Performed By: #### 4 [id number] #### [place] [address] WBC 7.3 x10 3/uL Normal 4.3-10.3 [facility] Comment on above: Performed By: #### 4 [id number] #### [place] [address] CBC with Differentialon 11-22 Absolute Immature Granulocytes 0.0 0 10 3/uL [facility] Absolute Lymph 2.2 [facility] Absolute Barbour 0.6 [facility] Basophils (Bld) [#/Vol] 0.0 10*3/uL [facility] Basophils/100 WBC (Bld) 0.5 % [facility] Eosinophils (Bld) [#/Vol] 0.3 10*3/uL [facility] Eosinophils/100 WBC (Bld) 3.4 % [facility] Erythrocyte distribution width (RBC) [Ratio] 13.5 % 11.5 - 14.5 % [facility] Hematocrit (Bld) [Volume fraction] 41.1 % 37.7 - 51.1 % [facility] Hemoglobin (Bld) [Mass/Vol] 14.0 g/dL 12.8 - 17.7 g/dL [facility] Immature granulocytes/100 WBC (Bld) 0.3 % [facility] Lymphocytes/100 WBC (Bld) 30.8 % [facility] MCH (RBC) [Entitic mass] 29.4 pg 27.0 - 34.2 pg [facility] MCHC (RBC) [Mass/Vol] 34.1 g/dL 31.4 - 36.2 g/dl [facility] MCV (RBC) [Entitic vol] 86.3 fL 80.6 - 99.0 fL [facility] Monocytes/100 WBC (Bld) 8.8 % [facility] Neutrophils (Bld) [#/Vol] 4.1 10*3/uL [facility] Neutrophils/100 WBC (Bld) 56.2 % [facility] Platelets (Bld) [#/Vol] 267.0 10*3/uL [facility] RBC (Bld) [#/Vol] 4.76 10*6/uL [facility] WBC LM Ql (Sput) 7.3 [facility] Comprehensive metabolic pane l aka Metaboon 12-03-2021 Albumin [Mass/Vol] 4.3 g/dL 3.5 - 5.0 g/dL [facility] Alk Phos 77 U/L 24 - 126 U/L [facility] ALT [Catalytic activity/Vol] 18 U/L 4 - 50 U/L [facility] AST [Catalytic activity/Vol] 26 U/L 3 - 55 U/L [facility] Bilirubin [Mass/Vol] 0.4 mg/dL 0.2 - 1 .6 mg/dL [facility] Calcium [Mass/Vol] 9.3 mg/dL 8.4 - 10. 4 mg/dL [facility] Chloride [Moles/Vol] 104 mmol/L 96 - 10 9 mmol/L [facility] CO2 [Moles/Vol] 29 mmol/L 22 - 30 mmol/L [facility] Creatinine [Mass/Vol] 0.76 mg/dL 0.66 - 1.25 mg/dL [facility] Glucose [Mass/Vol] 77 mg/dL 65 - 100 mg/dL [facility] Potassium [Moles/Vol] 4.0 mmol/L 3.6 - 5.1 mmol/L [facility] Protein [Mass/Vol] 7.1 g/dL 6.3 - 8.2 g/dL [facility] Sodium [Moles/Vol] 141 mmol/L 135 - 147 mmol/L [facility] Urea nitrogen [Mass/Vol] 13 mg/dL 8 - 26 mg/dL [facility] GCon 12-03-2021 CHLAMYDIA SOURCE urine Normal [facility] Comment on above: Performed By: #### 4 [id number] #### [place] [address] GC SOURCE urine Normal [facility] Comment on above: Performed By: #### 4 [id number] #### [place] [address] GFRon 12-03-2021 GFR >60 Normal [facility] Comment on above: Result Comment: To e stimate the GFR for Americans, multiply the result provided by 1.21. Population mean GFR = 116 ml/min/1.73 sq.m. for ages 18-29 yrs. The MDRD is validated in individuals 18-70 years of age. It is less accurate in patients with extremes of muscle mass, restriction of dietary protein, ingestion of creatine, extra-renal metabolism of creatinine, or treatment with medications that affect renal tubular creatinine secretion. GFR Categories in Chronic Kidney Disease (CKD) Category: GFR(mL/min/1.73m^2) Interpretation: G1* 90 or greater Normal or high G2* 60-89 Mild decrease G3a 45-59 Mild to moderate decrease G3b 30-44 Moderate to severe decrease G4 15-29 Severe decrease G5 14 or less Kidney failure *G1&G2: In the absence of evidence of kidney damage, neither GFR category G1 nor G2 fulfill the criteria for CKD Kidney Int Suppl.2013;3:1-150 Performed By: #### 3 [id number] #### [place] [address] GLOMERULAR FILTRATION RATEon 12-03-2021 GFR >60 [facility] [employer] [facility] Comment on above: To estimate the GFR for Americans, multiply the result provided by 1.21. Population mean GFR = 116 ml/min/1.73 sq.m. for ages 18-29 yrs. The MDRD is validated in individuals 18-70 years of age. It is less accurate in patients with extremes of muscle mass, restriction of dietary protein, ingestion of creatine, extra-renal metabolism of creatinine, or treatment with medications that affect renal tubular creatinine secretion. GFR Categories in Chronic Kidney Disease (CKD) Category: GFR(mL/min/1.73m^2) Interpretation: G1* 90 or greater Normal or high G2* 60-89 Mild decrease G3a 45-59 Mild to moderate decrease G3b 30-44 Moderate to severe decrease G4 15-29 Severe decrease G5 14 or less Kidney failure *G1&G2: In the absence of evidence of kidney damage, neither GFR category G1 nor G2 fulfill the criteria for CKD Kidney Int Suppl.2013;3:1-150 METABOLIC PANELon 12-03-2021 ALK PHOS 77 U/L Normal 24-126 [facility] Comment on above: Performed By: #### 3 [id number] #### [place] [address] ALT [Catalytic activity/Vol] 18 U/L Normal 4-50 [facility] [employer] Comment on above: Performed By: #### 3 [id number] #### [place] [address] Calcium [Mass/Vol] 9.3 mg/dL Normal 8.4-10.4 [facility] [employer] Comment on above: Performed By: #### 3 [id number] #### [place] [address] Glucose [Mass/Vol] 77 mg/dL Normal 65-100 [facility] [employer] Comment on above: Performed By: #### 3 [id number] #### [place] [address] Urea nitrogen [Mass/Vol] 13 mg/dL Normal 8-26 [facility] Comment on above: Performed By: #### 3 [id number] #### [place] [address] AST [Catalytic activity/Vol] 26 U/L Normal 3-55 [facility] [employer] Comment on above: Performed By: #### 3 [id number] #### [facility] [employer] [place] [id number] Bilirubin [Mass/Vol] 0.4 mg/dL Normal 0.2-1.6 [facility] [place] [employer] Comment on above: Performed By: #### 3 [id number] #### [place] [address] CO2 [Moles/Vol] 29 mmol/L Normal 22-30 [facility] Comment on above: Performed By: #### 3 [id number] #### [place] [address] Creatinine [Mass/Vol] 0.76 mg/dL Normal 0.66-1.25 [facility] Comment on above: Performed By: #### 3 [id number] #### [place] [address] Protein [Mass/Vol] 7.1 g/dL Normal 6.3-8.2 [employer] [facility] Comment on above: Performed By: #### 3 [id number] #### [place] [address] Chloride [Moles/Vol] 104 mmol/L Normal 96-109 [facility] [place] [employer] Comment on above: Performed By: #### 3 [id number] #### [place] [address] Potassium [Moles/Vol] 4.0 mmol/L Normal 3.6-5.1 [facility] Comment on above: Performed By: #### 3 [id number] #### [place] [address] Sodium [Moles/Vol] 141 mmol/L Normal 135-147 [employer] [facility] Comment on above: Performed By: #### 3 [id number] #### [place] [address] Albumin [Mass/Vol] 4.3 g/dL Normal 3.5-5.0 [employer] Comment on above: Performed By: #### 3 [id number] #### [place] [address] No Panel Informationon 12-03 [facility] nRBC 0 [facility] URINALYSIS W/REFLEXon 2021 Appearance (U) Clear Normal [facility] [employer] Comment on above: Performed By: #### 3 [id number] #### [facility] [place] [address] Bacteria identified Cx Nom (U) NOT INDICATED Normal [facility] Comment on above: Performed By: #### 3 [id number] #### [place] [address] Bilirubin Ql (U) Negative Normal Negative [facility] Comment on above: Performed By: #### 3 [id number] #### [place] [address] Color (U) Yellow Normal [facility] Comment on above: Performed By: #### 3 [id number] #### [place] [address] Glucose Ql (U) Negative Normal Negative [facility] Comment on above: Performed By: #### 3 [id number] #### [place] [address] Ketones Ql (U) Negative Normal Negative [facility] Comment on above: Performed By: #### 3 [id number] #### [place] [address] LEUKOESTERASE Negative Normal Negative [facility] Comment on above: Performed By: #### 3 [id number] #### [place] [address] MUCOUS-URINE Occasional Normal [facility] Comment on above: Performed By: #### 3 [id number] #### [facility] [place] [id number] Nitrite Ql (U) Negative Normal Negative [facility] Comment on above: Performed By: #### 3 [id number] #### [facility] [place] [id number] OCCULT BLOOD Negative Normal Negative [facility] Comment on above: Performed By: #### 3 [id number] #### [place] [address] pH (U) 6.0 [pH] Normal [facility] Comment on above: Performed By: #### 3 [id number] #### [place] [phone] Protein Ql (U) Negative Normal Negative [facility] Comment on above: Performed By: #### 3 [id number] #### [phone] RBC LM.HPF (Urine sed) [#/Area] /[HPF] Normal 0-5 [facility] Comment on above: Performed By: #### 3 [id number] #### [phone] Specific gravity (U) [Rel density] 1.023 Normal 1.003-1.02 9 [facility] Comment on above: Performed By: #### 3 [id number] #### [phone] Urobilinogen (U) [Mass/Vol] Negative Normal <2.0 [facility] Comment on above: Performed By: #### 3 [id number] #### [place] [phone] WBC LM.HPF (Urine sed) [#/Area] /[HPF] Normal 0-5 [facility] Comment on above: Performed By: #### 3 [id number] #### [phone] URINE SOURCE Voided Normal [facility] Comment on above: Performed By: #### 3 [id number] #### [place] [phone] US Scrotum and testicle for torsionon 12-03-2021 Sonographic appearance of both testicles within normal limit with color flow demonstrated. Both epididymis symmetric in size without increased color flow. Tiny 7 mm right epididymal cyst. Tiny 6 mm left epididymal cyst which by report of the cook chief is in the patient's area of palpable abnormality. Correlate clinically. Trace left hydrocele. LAQUITA EXAM: US TESTICULAR TORSION STUDY HISTORY: testicle pain/swelling left testicle pain following trauma to area along the ago. Palpable recently noticed. COMPARISON: None TECHNIQUE: Grayscale and color Doppler sonography of the scrotum performed. FINDINGS: Right: Right testicle 4.5 x 2.1 x 3.3 cm. Echotexture of the right testicle within normal limit. Color flow demonstrated right testicle. Right epididymis 0.7 x 0.9 x 0.9 cm. Tiny anechoic cyst epididymis 7 mm. Some trace anechoic fluid adjacent to the epididymis. No increased epididymal color flow. Left: Left testicle 4.9 x 2.1 x 3.4 cm. Echotexture left testicle within normal limit. Color flow demonstrated left testicle. There is a trace left hydrocele.. Left epididymis 0.7 x 0.9 x 1.1 cm. There is a tiny 6 mm anechoic cyst epididymis. No increased color flow left epididymis. This anechoic structure is in the area of palpable abnormality. LAQUITA Digna Burk MD - 12/03/2021 EXAM: US TESTICULAR TORSION STUDY HISTORY: testicle pain/swelling left testicle pain following trauma to area along the ago. Palpable recently noticed. COMPARISON: None TECHNIQUE: Grayscale and color Doppler sonography of the scrotum performed. FINDINGS: Right: Right testicle 4.5 x 2.1 x 3.3 cm. Echotexture of the right testicle within normal limit. Color flow demonstrated right testicle. Right epididymis 0.7 x 0.9 x 0.9 cm. Tiny anechoic cyst epididymis 7 mm. Some trace anechoic fluid adjacent to the epididymis. No increased epididymal color flow. Left: Left testicle 4.9 x 2.1 x 3.4 cm. Echotexture left testicle within normal limit. Color flow demonstrated left testicle. There is a trace left hydrocele.. Left epididymis 0.7 x 0.9 x 1.1 cm. There is a tiny 6 mm anechoic cyst epididymis. No increased color flow left epididymis. This anechoic structure is in the area of palpable abnormality. IMPRESSION: Sonographic appearance of both testicles within normal limit with color flow demonstrated. Both epididymis symmetric in size without increased color flow. Tiny 7 mm right epididymal cyst. Tiny 6 mm left epididymal cyst which by report of the cook chief is in the patient's area of palpable abnormality. Correlate clinically. Trace left hydrocele. [facility] Radiology Study observation (narrative) [facility] US Scrotum and testicle for torsionOrdered By: Digna Burk on 12-03-2021 [facility] Work Phone: US TESTICULAR TORSION STUDYo n 12-03-2021 US TESTICULAR TORSION STUDY EXAM: US TESTICULAR TORSION STUDY HISTORY: testicle pain/swelling left testicle pain following trauma to area along the ago. Palpable recently noticed. COMPARISON: None TECHNIQUE: Grayscale and color Doppler sonography of the scrotum performed. FINDINGS: Right: Right testicle 4.5 x 2.1 x 3.3 cm. Echotexture of the right testicle within normal limit. Color flow demonstrated right testicle. Right epididymis 0.7 x 0.9 x 0.9 cm. Tiny anechoic cyst epididymis 7 mm. Some trace anechoic fluid adjacent to the epididymis. No increased epididymal color flow. Left: Left testicle 4.9 x 2.1 x 3.4 cm. Echotexture left testicle within normal limit. Color flow demonstrated left testicle. There is a trace left hydrocele.. Left epididymis 0.7 x 0.9 x 1.1 cm. There is a tiny 6 mm anechoic cyst epididymis. No increased color flow left epididymis. This anechoic structure is in the area of palpable abnormality. IMPRESSION: Sonographic appearance of both testicles within normal limit with color flow demonstrated. Both epididymis symmetric in size without increased color flow. Tiny 7 mm right epididymal cyst. Tiny 6 mm left epididymal cyst which by report of the cook chief is in the patient's area of palpable abnormality. Correlate clinically. Trace left hydrocele. Diagnosis: Tech Notes: LT testicle pain following trauma to area a month ago. Palp recently noticed. Impression: Area of palp: LT Epi cyst. Bilat Epi cysts. Bilat arterial and venous flow. Order Comments: Ordering Physician: Kandice Lal APRN [employer] SERVICES ASSOCIATE Dose: Normal [facility] Urinalysis with reflex cultu reon 12-03-2021 Appearance (U) Clear [facility] Bacteria identified Aer cx Nom (Unsp spec) NOT INDICATED [facility] Bilirubin Ql (U) Negative Negative [facility] Color (CSF) Yellow [facility] Glucose Ql (U) Negative Negative mg/dL [facility] Hemoglobin Ql (U) <1 [facility] Ketones Ql (U) Negative Negative mg/dL [facility] Leukoesterase Negative Negative [facility] Mucous-Urine Occasional /LPF [facility] Nitrite Ql (U) Negative Negative [facility] Occult Bld Negative Negative [facility] pH (U) 6.0 [pH] [facility] Protein (U) [Mass/Vol] Negative Negative mg/dL [facility] Specific gravity (U) [Rel density] 1.023 [facility] Urine Source Voided [facility] Urobilinogen Qn (U) Negative <2.0 mg/dL [facility] WBC (U) [#/Vol] /uL [facility] XR KNEE LEFT 4 OR MORE VIEWS on 10-24-2021 XR KNEE LEFT 4 OR MORE VIEWS EXAM: XR KNEE LEFT 4 OR MORE VIEWS DATE: 10/24/2021 1:57 PM EST INDICATION: Pain in left knee: COMPARISON: None. TECHNIQUE: AP and PA views of the bilateral knees, lateral sunrise views of the left knee. FINDINGS: 2 views of the right knee are unremarkable. 4 views of the left knee demonstrate no acute fracture. Normal osseous alignment. No definite osteophytes are identified. Joint spaces are preserved. No knee joint effusion. Soft tissues are unremarkable. IMPRESSION: 1. No radiographic abnormality of the left knee. Left knee pain. Office visit Normal [facility] COVID MOLECULARon 09-02-2021 SARS-CoV-2 (COVID-19) RNA CLARITA+probe Ql (Unsp spec) Negative Normal NEGATIVE [facility] Comment on above: Result Comment: Nega tive results should be treated as presumptive and, if inconsistent with clinical signs and symptoms, test with an alternative FDA authorized molecular PCR assay. Negative results do not preclude SARS-CoV-2 infection and does not rule out co-infections with other pathogens so should not be used as the sole basis for patient management decisions. Negative results should be considered in the context of a patient?s recent exposures, history, and presence of symptoms consistent with COVID-19. This test should not be used on asymptomatic patients. The [employer] ID Now COVID-19 EUA has not been FDA cleared or approved. It has been authorized by the FDA under an emergency use authorization for use by authorized laboratories and patient care settings. The test has been authorized only for the detection of nucleic acid from SARS-CoV-2, not for any other viruses or pathogens, and is only authorized for the duration of the declaration that circumstances exist justifying the authorization of emergency use of in vitro diagnostic tests for detection and / or diagnosis of COVID-19, unless the authorization is terminated or revoked sooner. Performed By: #### 3 [id number] #### [place] [address] INFLUENZA Aon 09-02-2021 INFLUENZA A MOLECULAR Negative Normal NEGATIVE [facility] Comment on above: Performed By: #### 3 [id number] #### [place] [phone] INFLUENZA B MOLECULAR Negative Normal NEGATIVE [facility] Comment on above: Performed By: #### 3 [id number] #### [place] [phone] Influenza A&B Molecularon Influenza A Molecular Negative NEGATIVE [facility] Influenza B Molecular Negative NEGATIVE [facility] No Panel Informationon 09-02 [facility] SARS-COV-2 Rapid Molecular T eston 09-02-2021 SARS-CoV-2 (COVID-19) RNA CLARITA+probe Ql (Resp) Negative NEGATIVE [facility] Comment on above: Negative results teto uld be treated as presumptive and, if inconsistent with clinical signs and symptoms, test with an alternative FDA authorized molecular PCR assay. Negative results do not preclude SARS-CoV-2 infection and does not rule out co-infections with other pathogens so should not be used as the sole basis for patient management decisions. Negative results should be considered in the context of a patient s recent exposures, history, and presence of symptoms consistent with COVID-19. This test should not be used on asymptomatic patients. The [employer] ID Now COVID-19 EUA has not been FDA cleared or approved. It has been authorized by the FDA under an emergency use authorization for use by authorized laboratories and patient care settings. The test has been authorized only for the detection of nucleic acid from SARS-CoV-2, not for any other viruses or pathogens, and is only authorized for the duration of the declaration that circumstances exist justifying the authorization of emergency use of in vitro diagnostic tests for detection and / or diagnosis of COVID-19, unless the authorization is terminated or revoked sooner. XR CHEST PA AND LATERALon XR CHEST PA AND LATERAL CHEST 2 VIEWS COMPARISON: 07/16/2021. HISTORY: Cough. FINDINGS: The lungs are clear of infiltrates. The cardiomediastinal silhouette, bony thorax, and surrounding soft tissue structures show no additional abnormalities of significance. IMPRESSION: Unchanged chest with no acute pulmonary disease. Diagnosis: Tech Notes: Pt c/o cough x3 weeks. hx asthma Order Comments: Ordering Physician: Rubi Vale MD Dose: Normal [facility] CHEM 07-17-2021 Calcium [Mass/Vol] 9.6 mg/dL Normal 8.4-10.4 [employer] [facility] Comment on above: Performed By: #### 4 [id number] #### [place] [address] CO2 [Moles/Vol] 26 mmol/L Normal 22-30 [facility] Comment on above: Performed By: #### 4 [id number] #### [place] [address] Glucose [Mass/Vol] 78 mg/dL Normal 65-100 [employer] [facility] Comment on above: Performed By: #### 4 [id number] #### [place] [address] Urea nitrogen [Mass/Vol] 17 mg/dL Normal 8-26 [facility] Comment on above: Performed By: #### 4 [id number] #### [place] [address] Creatinine [Mass/Vol] 0.83 mg/dL Normal 0.66-1.25 [facility] Comment on above: Performed By: #### 4 [id number] #### [place] [address] Potassium [Moles/Vol] 3.6 mmol/L Normal 3.6-5.1 [facility] Comment on above: Performed By: #### 4 [id number] #### [place] [address] Sodium [Moles/Vol] 140 mmol/L Normal 135-147 [facility] Comment on above: Performed By: #### 4 [id number] #### [place] [address] Chloride [Moles/Vol] 103 mmol/L Normal 96-109 [facility] Comment on above: Performed By: #### 4 [id number] #### [place] [address] COVID MOLECULARon 07-17-2021 SARS-CoV-2 (COVID-19) RNA CLARITA+probe Ql (Unsp spec) Negative Normal NEGATIVE [facility] Comment on above: Result Comment: Nega tive results should be treated as presumptive and, if inconsistent with clinical signs and symptoms, test with an alternative FDA authorized molecular PCR assay. Negative results do not preclude SARS-CoV-2 infection and does not rule out co-infections with other pathogens so should not be used as the sole basis for patient management decisions. Negative results should be considered in the context of a patient?s recent exposures, history, and presence of symptoms consistent with COVID-19. This test should not be used on asymptomatic patients. The [employer] ID Now COVID-19 EUA has not been FDA cleared or approved. It has been authorized by the FDA under an emergency use authorization for use by authorized laboratories and patient care settings. The test has been authorized only for the detection of nucleic acid from SARS-CoV-2, not for any other viruses or pathogens, and is only authorized for the duration of the declaration that circumstances exist justifying the authorization of emergency use of in vitro diagnostic tests for detection and / or diagnosis of COVID-19, unless the authorization is terminated or revoked sooner. Performed By: #### 3 [id number] #### [place] [address] D DIMERon 10-24-2021 D DIMER <0.17 Normal 0.00-0.50 [facility] Comment on above: Result Comment: Diag nostic Cutoff (PE/DVT): <=0.50mg/L (FEU) The results of this test should always be interpreted in conjunction with pretest probability assessment as a negative indicator for deep-vein thrombosis (DVT) or pulmonary embolism (PE). Performed By: #### 4 [id number] #### [place] [address] D-dimeron 07-17-2021 Fibrin D-dimer FEU (PPP) [Mass/Vol] <0.17 [facility] Comment on above: Diagnostic Cutoff (P E/DVT): <=0.50mg/L (FEU) The results of this test should always be interpreted in conjunction with pretest probability assessment as a negative indicator for deep-vein thrombosis (DVT) or pulmonary embolism (PE). [facility] GFRon 07-17-2021 GFR >60 Normal [facility] Comment on above: Result Comment: To e stimate the GFR for Americans, multiply the result provided by 1.21. Population mean GFR = 116 ml/min/1.73 sq.m. for ages 18-29 yrs. The MDRD is validated in individuals 18-70 years of age. It is less accurate in patients with extremes of muscle mass, restriction of dietary protein, ingestion of creatine, extra-renal metabolism of creatinine, or treatment with medications that affect renal tubular creatinine secretion. GFR Categories in Chronic Kidney Disease (CKD) Category: GFR(mL/min/1.73m^2) Interpretation: G1* 90 or greater Normal or high G2* 60-89 Mild decrease G3a 45-59 Mild to moderate decrease G3b 30-44 Moderate to severe decrease G4 15-29 Severe decrease G5 14 or less Kidney failure *G1&G2: In the absence of evidence of kidney damage, neither GFR category G1 nor G2 fulfill the criteria for CKD Kidney Int Suppl.2013;3:1-150 Performed By: #### 3 [id number] #### [place] [address] [id number] 07-17-2021 Natriuretic peptide B (Bld) [Mass/Vol] 53 pg/mL Normal 0-450 [facility] Comment on above: Result Comment: An N T-pro-BNP <300 pg/ml effectively rules out acute congestive heart failure with a 99% negative predictive value. . Performed By: #### 3 [id number] #### [place] [address] TROPONIN-Ion 07-17-2021 Troponin I.cardiac [Mass/Vol] ng/mL Normal 0.000-0.03 3 [facility] [employer] [facility] Comment on above: Result Comment: NEGA TIVE; No detectable troponin-I. Performed By: #### 4 [id number] #### [place] [address] Troponin I.cardiac [Mass/Vol] ng/mL Normal 0.000-0.03 3 [facility] [employer] [facility] Comment on above: Result Comment: NEGA TIVE; No detectable troponin-I. Performed By: #### 4 [id number] #### [place] [address] BNPon 07-16-2021 Natriuretic peptide.B prohormone N-Terminal [Mass/Vol] 53 pg/mL 0 - 450 pg/mL [facility] Comment on above: An NT-pro-BNP <300 p g/ml effectively rules out acute congestive heart failure with a 99% negative predictive value. . [facility] Basic metabolic panel aka Ch em 807-16-2021 Calcium [Mass/Vol] 9.6 mg/dL 8.4 - 10. 4 mg/dL [facility] Chloride [Moles/Vol] 103 mmol/L 96 - 10 9 mmol/L [facility] CO2 [Moles/Vol] 26 mmol/L 22 - 30 mmol/L [facility] Creatinine [Mass/Vol] 0.83 mg/dL 0.66 - 1.25 mg/dL [facility] Glucose [Mass/Vol] 78 mg/dL 65 - 100 mg/dL [facility] Potassium [Moles/Vol] 3.6 mmol/L 3.6 - 5.1 mmol/L [facility] Sodium [Moles/Vol] 140 mmol/L 135 - 147 mmol/L [facility] Urea nitrogen [Mass/Vol] 17 mg/dL 8 - 26 mg/dL [facility] CBC WITH DIFFERENTIALon 10-2 -2020 ABSOLUTE BASO 0.0 10 3/uL Normal 0.0-0.1 [facility] Comment on above: Performed By: #### 3 [id number] #### [place] [address] ABSOLUTE EOSIN 0.8 10 3/uL High 0.1-0.3 [facility] Comment on above: Performed By: #### 3 [id number] #### [place] [address] ABSOLUTE LYMPH 2.3 10 3/uL Normal 1.2-3.3 [facility] Comment on above: Performed By: #### 3 [id number] #### [place] [address] ABSOLUTE MONO 0.9 10 3/uL High 0.2-0.6 [facility] Comment on above: Performed By: #### 3 [id number] #### [place] [address] ABSOLUTE NEUT 5.8 10 3/uL Normal 2.4-6.6 [facility] Comment on above: Performed By: #### 3 [id number] #### [place] [address] Basophils/100 WBC (Bld) 0.4 % Normal [facility] Comment on above: Performed By: #### 3 [id number] #### [place] [address] Eosinophils/100 WBC (Bld) 8.3 % Normal [facility] Comment on above: Performed By: #### 3 [id number] #### [place] [address] Erythrocyte distribution width (RBC) [Ratio] 13.8 % Normal 11.5-14.5 [facility] [employer] [facility] Comment on above: Performed By: #### 3 [id number] #### [facility] [employer] [place] [phone] Hematocrit (Bld) [Volume fraction] 48.8 % Normal 37.7-51.1 [facility] [employer] [facility] Comment on above: Performed By: #### 3 [id number] #### [facility] [employer] [place] [phone] Hemoglobin (Bld) [Mass/Vol] 16.2 g/dL Normal 12.8-17.7 [facility] [employer] [facility] Comment on above: Performed By: #### 3 [id number] #### [place] [phone] IG ABSOLUTE 0.0 10 3/uL Normal 0 [facility] [employer] Comment on above: Performed By: #### 3 [id number] #### [facility] [employer] [place] [phone] IG PERCENT 0.1 % Normal [facility] [employer] [facility] Comment on above: Performed By: #### 3 [id number] #### [place] [phone] Lymphocytes/100 WBC (Bld) 23.3 % Normal [facility] [employer] [facility] Comment on above: Performed By: #### 3 [id number] #### [facility] [employer] [place] [phone] MCH (RBC) [Entitic mass] 29.3 pg Normal 27.0-34.2 [facility] Comment on above: Performed By: #### 3 [id number] #### [facility] [place] [address] MCHC (RBC) [Mass/Vol] 33.2 g/dL Normal 31.4-36.2 [facility] [employer] [facility] Comment on above: Performed By: #### 3 [id number] #### [facility] [employer] [place] [id number] MCV (RBC) [Entitic vol] 88.4 fL Normal 80.6-99.0 [facility] Comment on above: Performed By: #### 3 [id number] #### [place] [address] Monocytes/100 WBC (Bld) 8.7 % Normal [facility] Comment on above: Performed By: #### 3 [id number] #### [employer] [place] [phone] Neutrophils/100 WBC (Bld) 59.2 % Normal [facility] Comment on above: Performed By: #### 3 [id number] #### [place] [address] NRBC 0 Normal 0-1 [facility] Comment on above: Performed By: #### 3 [id number] #### [facility] [employer] [place] [phone] PLATELET 286.0 x10 3/uL Normal 150.0-400. 0 [facility] [employer] Comment on above: Performed By: #### 3 [id number] #### [place] [address] RBC 5.52 x10 6/uL Normal 3.70-5.70 [facility] [employer] Comment on above: Performed By: #### 3 [id number] #### [employer] [place] [phone] WBC 9.8 x10 3/uL Normal 4.3-10.3 [facility] [employer] Comment on above: Performed By: #### 3 [id number] #### [place] [address] CBC with Differentialon 10-2 Absolute Immature Granulocytes 0.0 0 10 3/uL [facility] Absolute Lymph 2.3 [facility] Absolute [place]bour 0.9 High [facility] Basophils (Bld) [#/Vol] 0.0 10*3/uL [facility] Basophils/100 WBC (Bld) 0.4 % [facility] Eosinophils (Bld) [#/Vol] 0.8 10*3/uL High [facility] Eosinophils/100 WBC (Bld) 8.3 % [facility] Erythrocyte distribution width (RBC) [Ratio] 13.8 % 11.5 - 14.5 % [facility] Hematocrit (Bld) [Volume fraction] 48.8 % 37.7 - 51.1 % [facility] Hemoglobin (Bld) [Mass/Vol] 16.2 g/dL 12.8 - 17.7 g/dL [facility] Immature granulocytes/100 WBC (Bld) 0.1 % [facility] Interpretation and review of laboratory results Abnormal [facility] Lymphocytes/100 WBC (Bld) 23.3 % [facility] MCH (RBC) [Entitic mass] 29.3 pg 27.0 - 34.2 pg [facility] MCHC (RBC) [Mass/Vol] 33.2 g/dL 31.4 - 36.2 g/dl [facility] MCV (RBC) [Entitic vol] 88.4 fL 80.6 - 99.0 fL [facility] Monocytes/100 WBC (Bld) 8.7 % [facility] Neutrophils (Bld) [#/Vol] 5.8 10*3/uL [facility] Neutrophils/100 WBC (Bld) 59.2 % [facility] Platelets (Bld) [#/Vol] 286.0 10*3/uL [facility] RBC (Bld) [#/Vol] 5.52 10*6/uL [facility] WBC LM Ql (Sput) 9.8 [facility] EKG (ED/FC)on 07-16-2021 Stationary ECG Study Test Date: 2021-07-16 Pat Name: KISHOR MAGAÑA Department: Room: Gender: Male [employer]ilingual 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 Service: Bonnyaziza Barrios : 1985 Requested By: Order Number: Pool MD: Ryan Ramirez Measurements Intervals [place] Rate: 50 P: 36 MI: 138 QRS: 67 QRSD: 95 T: 63 QT: 431 QTc: 393 Interpretive Statements SINUS BRADYCARDIA POSSIBLE RIGHT VENTRICULAR CONDUCTION DELAY [RSR (QR) IN V1/V2] Electronically Signed On 07-16-2021 21:47:14 EDT by Ryan GARCIA EKG (ED/FC)Ordered By: Olivia Robles on 07-16-2021 [facility] Work Phone: GLOMERULAR FILTRATION RATEon 07-16-2021 GFR >60 [facility] Comment on above: To estimate the GFR for Americans, multiply the result provided by 1.21. Population mean GFR = 116 ml/min/1.73 sq.m. for ages 18-29 yrs. The MDRD is validated in individuals 18-70 years of age. It is less accurate in patients with extremes of muscle mass, restriction of dietary protein, ingestion of creatine, extra-renal metabolism of creatinine, or treatment with medications that affect renal tubular creatinine secretion. GFR Categories in Chronic Kidney Disease (CKD) Category: GFR(mL/min/1.73m^2) Interpretation: G1* 90 or greater Normal or high G2* 60-89 Mild decrease G3a 45-59 Mild to moderate decrease G3b 30-44 Moderate to severe decrease G4 15-29 Severe decrease G5 14 or less Kidney failure *G1&G2: In the absence of evidence of kidney damage, neither GFR category G1 nor G2 fulfill the criteria for CKD Kidney Int Suppl.2013;3:1-150 No Panel Informationon 07-16 [facility] nRBC 0 [facility] SARS-COV-2 Rapid Molecular T eston 07-16-2021 SARS-CoV-2 (COVID-19) RNA CLARITA+probe Ql (Resp) Negative NEGATIVE [facility] Comment on above: Negative results teto uld be treated as presumptive and, if inconsistent with clinical signs and symptoms, test with an alternative FDA authorized molecular PCR assay. Negative results do not preclude SARS-CoV-2 infection and does not rule out co-infections with other pathogens so should not be used as the sole basis for patient management decisions. Negative results should be considered in the context of a patient s recent exposures, history, and presence of symptoms consistent with COVID-19. This test should not be used on asymptomatic patients. The [employer] COVID-19 EUA has not been FDA cleared or approved. It has been authorized by the FDA under an emergency use authorization for use by authorized laboratories and patient care settings. The test has been authorized only for the detection of nucleic acid from SARS-CoV-2, not for any other viruses or pathogens, and is only authorized for the duration of the declaration that circumstances exist justifying the authorization of emergency use of in vitro diagnostic tests for detection and / or diagnosis of COVID-19, unless the authorization is terminated or revoked sooner. [facility] Troponin Ion 07-16-2021 Troponin I.cardiac [Mass/Vol] ng/mL 0.000 - 0.033 ng/mL [facility] Comment on above: NEGATIVE; No detectable troponin-I. [facility] XR CHEST 1 VIEWon 07-16-2021 XR CHEST 1 VIEW EXAM: XR CHEST 1 VIE W HISTORY: shortness of breath FINDINGS/ IMPRESSION: Chest one view 02/04/2021. Chest 2 views 01/17/2021 AP upright portable chest x2. Lungs clear of confluent infiltrate or acute pneumonic consolidation. No pneumothorax or pleural effusion. Cardiomediastinal silhouette within normal limit without pulmonary edema. IMPRESSION: LUNGS CLEAR. Pt states SOB Normal [facility] XR Chest Single viewon 07-16 LUNGS CLEAR. [facility] EXAM: XR CHEST 1 VIE W HISTORY: shortness of breath FINDINGS/ IMPRESSION: Chest one view 02/04/2021. Chest 2 views 01/17/2021 AP upright portable chest x2. Lungs clear of confluent infiltrate or acute pneumonic consolidation. No pneumothorax or pleural effusion. Cardiomediastinal silhouette within normal limit without pulmonary edema. [facility] Digna Burk MD - 07/16/2021 EXAM: XR CHEST 1 VIEW HISTORY: shortness of breath FINDINGS/ IMPRESSION: Chest one view 02/04/2021. Chest 2 views 01/17/2021 AP upright portable chest x2. Lungs clear of confluent infiltrate or acute pneumonic consolidation. No pneumothorax or pleural effusion. Cardiomediastinal silhouette within normal limit without pulmonary edema. IMPRESSION: LUNGS CLEAR. [facility] Study observation (narrative) [facility] XR Chest Single viewOrdered By: Digna Burk on 07-16-2021 [facility] Work Phone: HOLTER MONITon 04-08-2021 HOLTER MONIT This is a summary re port. The complete report is available in the patient's medical record. If you cannot access the medical record, please contact the sending organization for a detailed fax or copy. ? HOLTER REPORT 03/03/21-03/04/21 ? INDICATION: PALPITATIONS Sinus rhythm No atrial fibrillation No high degree AV block No significant bradycardia episodes Episode of narrow complex tachycardia at 166 bpm, likely sinus tachcyardia vs long RP tachycardia SVT Normal [facility] ECHOCARDIOGRAM 2D COMPLETEOr dered By: Jenna Cox on 03-16-2021 Aortic valve area 3.25619 cm [facility] AV mean gradient 3.67648 mmHg [facility] AV peak gradient 6.64465 mmHg [facility] EF 60.5955 % [facility] Patient Info Name: Alexandra MAGAÑA Age: 35 years : 1985 Gender: Male Ht: 175 cm Wt: 74 kg BSA: 1.91 m2 HR: 68 bpm BP: 118 / 64 mmHg Heart Rhythm: Sinus Rhythm Technical Quality: Technically difficult Exam Date: 03/16/2021 10:24 AM Patient Status: Outpatient Power Mule Operator: Lara Hdz RN, RDCS, RVS Exam Type: ECHOCARDIOGRAM COMPLETE W CONTRAST Study Info Indications - Dyspnea Referring Physician: JENNA COX ; [id number] BMI: 24.22 kg/m2 Summary 1. Left ventricular chamber dimension is borderline enlarged. 2. Left ventricular systolic function is normal with an ejection fraction by Biplane Method of Discs of 61 %. 3. The left ventricular diastolic function is normal. 4. No significant valvular heart disease is identified. History/Risk Factors Tobacco Use: Current - Every Day Procedure(s): Complete two-dimensional, color flow and Doppler transthoracic echocardiogram is performed with contrast. Definity explained to patient. Patient verbalizes understanding and agrees to proceed. Definity 1.3ml/8.7ml normal sterile saline 1 ml total given IV over 30-60 seconds. Left Ventricle Left ventricular chamber dimension is borderline enlarged. Left ventricular systolic function is normal with an ejection fraction by Biplane Method of Discs of 61 %. The left ventricular diastolic function is normal. Right Ventricle Right ventricular chamber dimension is normal. Right ventricular systolic function is normal. Left Atria Left atrial chamber is normal with a left atrial volume index of 24 ml/m2 by BP MOD. Right Atria Right atrial chamber dimension is normal. Aortic Valve The aortic valve is trileaflet, with normal leaflet morphology. There is no aortic valve sclerosis. There is no aortic valve stenosis with a peak velocity of 1.3 m/s, mean gradient of 4 mmHg, and aortic valve area of 3.6 cm2. There is no aortic valve regurgitation. Pulmonic Valve The pulmonic valve is normal. There is no pulmonic valve stenosis. There is trace pulmonic regurgitation. Mitral Valve The mitral valve has normal leaflets. There is no mitral valve stenosis. There is no mitral valve regurgitation. Tricuspid Valve The tricuspid valve leaflets are normal. There is no significant tricuspid valve stenosis. There is trace tricuspid valve regurgitation. Pericardium/Pleural The pericardium appears normal. There is no pericardial effusion. Inferior Vena Cava Normal inferior vena cava with >50% collapse upon inspiration consistent with normal right atrial pressure. Aorta The aortic measurements are indexed to age and body surface area. The aortic root is normal measuring 3.7 cm with an index of 1.9 cm/m2. Left Ventricular Outflow Tract Name Value Normal LVOT 2D LVOT Diameter 2.2 cm LVOT Doppler LVOT Peak Velocity 1.2 m/s LVOT Peak Gradient 6 mmHg LVOT Mean Gradient 3 mmHg LVOT VTI 22 cm LVOT VTI/AV VTI Ratio 0.9 LVOT Stroke Volume 86 ml LVOT Stroke Index 45.23 ml/m2 Pulmonic Valve Name Value Normal RVOT Doppler RVOT Peak Velocity 72 cm/s RVOT Peak Gradient 2 mmHg RVOT Mean Gradient 1 mmHg RVOT VTI 14 cm PV Doppler PV Peak Velocity 1.06 m/s PV Peak Gradient 5 mmHg PV Mean Gradient 2 mmHg PV VTI 18 cm Mitral Valve Name Value Normal MV Doppler MV Peak Velocity 0.77 m/s MV Peak Gradient 2 mmHg MV Mean Gradient 1 mmHg MV VTI 21 cm MV Decel Harrison (more content not included)... [facility] Interface, Rad In [employer] [facility]chopacs - 03/16/2021 2:00 PM EDT Patient Info Name: KISHOR MAGAÑA Age: 35 years : 1985 Gender: Male Ht: 175 cm Wt: 74 kg BSA: 1.91 m2 HR: 68 bpm BP: 118 / 64 mmHg Heart Rhythm: Sinus Rhythm Technical Quality: Technically difficult Exam Date: 03/16/2021 10:24 AM Patient Status: Outpatient Power Mule Operator: Lara Hdz, JEET, RDCS, RVS Exam Type: ECHOCARDIOGRAM COMPLETE W CONTRAST Study Info Indications - Dyspnea Referring Physician: JENNA COX ; [id number] BMI: 24.22 kg/m2 Summary 1. Left ventricular chamber dimension is borderline enlarged. 2. Left ventricular systolic function is normal with an ejection fraction by Biplane Method of Discs of 61 %. 3. The left ventricular diastolic function is normal. 4. No significant valvular heart disease is identified. History/Risk Factors Tobacco Use: Current - Every Day Procedure(s): Complete two-dimensional, color flow and Doppler transthoracic echocardiogram is performed with contrast. Definity explained to patient. Patient verbalizes understanding and agrees to proceed. Definity 1.3ml/8.7ml normal sterile saline 1 ml total given IV over 30-60 seconds. Left Ventricle Left ventricular chamber dimension is borderline enlarged. Left ventricular systolic function is normal with an ejection fraction by Biplane Method of Discs of 61 %. The left ventricular diastolic function is normal. Right Ventricle Right ventricular chamber dimension is normal. Right ventricular systolic function is normal. Left Atria Left atrial chamber is normal with a left atrial volume index of 24 ml/m2 by BP MOD. Right Atria Right atrial chamber dimension is normal. Aortic Valve The aortic valve is trileaflet, with normal leaflet morphology. There is no aortic valve sclerosis. There is no aortic valve stenosis with a peak velocity of 1.3 m/s, mean gradient of 4 mmHg, and aortic valve area of 3.6 cm2. There is no aortic valve regurgitation. Pulmonic Valve The pulmonic valve is normal. There is no pulmonic valve stenosis. There is trace pulmonic regurgitation. Mitral Valve The mitral valve has normal leaflets. There is no mitral valve stenosis. There is no mitral valve regurgitation. Tricuspid Valve The tricuspid valve leaflets are normal. There is no significant tricuspid valve stenosis. There is trace tricuspid valve regurgitation. Pericardium/Pleural The pericardium appears normal. There is no pericardial effusion. Inferior Vena Cava Normal inferior vena cava with >50% collapse upon inspiration consistent with normal right atrial pressure. Aorta The aortic measurements are indexed to age and body surface area. The aortic root is normal measuring 3.7 cm with an index of 1.9 cm/m2. Left Ventricular Outflow Tract Name Value Normal LVOT 2D LVOT Diameter 2.2 cm LVOT Doppler LVOT Peak Velocity 1.2 m/s LVOT Peak Gradient 6 mmHg LVOT Mean Gradient 3 mmHg LVOT VTI 22 cm LVOT VTI/AV VTI Ratio 0.9 LVOT Stroke Volume 86 ml LVOT Stroke Index 45.23 ml/m2 Pulmonic Valve Name Value Normal RVOT Doppler RVOT Peak Velocity 72 cm/s RVOT Peak Gradient 2 mmHg RVOT Mean Gradient 1 mmHg RVOT VTI 14 cm PV Doppler PV Peak Velocity 1.06 m/s PV Peak Gradient 5 mmHg PV Mean Gradient 2 mmHg PV VTI 18 cm Mitral Valve Name Value Normal MV Doppler MV Peak Velocity 0.77 m/s MV Peak Gradient 2 mmHg MV Mean Gradient 1 mmHg MV VTI 21 cm MV Decel Harrison 413 cm/s2 MV PHT 54 ms MV Area (PHT) 4.1 cm2 4.0-5.0 MV Area (Cont Eq VTI) 4.2 cm2 MV Area Index (Cont Eq VTI) 2.19 cm2/m2 MV Diastolic Function MV E Peak Velocity 1 m/s MV A Peak Velocity 1 m/s MV E/A 1.3 MV Decel Time 186 ms MV Annular TDI MV Septal e' Velocity 9.8 cm/s >=8.0 MV E/e' (Septal) 7.8 <=8.0 MV Lat (more content not included)... [facility] ECHOCARDIOGRAM COMPLETE W CO NTRASTon 03-16-2021 ECHOCARDIOGRAM COMPLETE W CONTRAST Patient Info Name: KISHOR MAGAÑA Age: 35 years : 1985 Gender: Male Ht: 175 cm Wt: 74 kg BSA: 1.91 m2 HR: 68 bpm BP: 118 / 64 mmHg Heart Rhythm: Sinus Rhythm Technical Quality: Technically difficult Exam Date: 03/16/2021 10:24 AM Patient Status: Outpatient Power Mule Operator: Lara Hdz, RN, RDCS, RVS Exam Type: ECHOCARDIOGRAM COMPLETE W CONTRAST Study Info Indications - Dyspnea Referring Physician: JENNA COX ; [id number] BMI: 24.22 kg/m2 Summary 1. Left ventricular chamber dimension is borderline enlarged. 2. Left ventricular systolic function is normal with an ejection fraction by Biplane Method of Discs of 61 %. 3. The left ventricular diastolic function is normal. 4. No significant valvular heart disease is identified. History/Risk Factors Tobacco Use: Current - Every Day Procedure(s): Complete two-dimensional, color flow and Doppler transthoracic echocardiogram is performed with contrast. Definity explained to patient. Patient verbalizes understanding and agrees to proceed. Definity 1.3ml/8.7ml normal sterile saline 1 ml total given IV over 30-60 seconds. Left Ventricle Left ventricular chamber dimension is borderline enlarged. Left ventricular systolic function is normal with an ejection fraction by Biplane Method of Discs of 61 %. The left ventricular diastolic function is normal. Right Ventricle Right ventricular chamber dimension is normal. Right ventricular systolic function is normal. Left Atria Left atrial chamber is normal with a left atrial volume index of 24 ml/m2 by BP MOD. Right Atria Right atrial chamber dimension is normal. Aortic Valve The aortic valve is trileaflet, with normal leaflet morphology. There is no aortic valve sclerosis. There is no aortic valve stenosis with a peak velocity of 1.3 m/s, mean gradient of 4 mmHg, and aortic valve area of 3.6 cm2. There is no aortic valve regurgitation. Pulmonic Valve The pulmonic valve is normal. There is no pulmonic valve stenosis. There is trace pulmonic regurgitation. Mitral Valve The mitral valve has normal leaflets. There is no mitral valve stenosis. There is no mitral valve regurgitation. Tricuspid Valve The tricuspid valve leaflets are normal. There is no significant tricuspid valve stenosis. There is trace tricuspid valve regurgitation. Pericardium/Pleural The pericardium appears normal. There is no pericardial effusion. Inferior Vena Cava Normal inferior vena cava with >50% collapse upon inspiration consistent with normal right atrial pressure. Aorta The aortic measurements are indexed to age and body surface area. The aortic root is normal measuring 3.7 cm with an index of 1.9 cm/m2. Left Ventricular Outflow Tract Name Value Normal LVOT 2D LVOT Diameter 2.2 cm LVOT Doppler LVOT Peak Velocity 1.2 m/s LVOT Peak Gradient 6 mmHg LVOT Mean Gradient 3 mmHg LVOT VTI 22 cm LVOT VTI/AV VTI Ratio 0.9 LVOT Stroke Volume 86 ml LVOT Stroke Index 45.23 ml/m2 Pulmonic Valve Name Value Normal RVOT Doppler RVOT Peak Velocity 72 cm/s RVOT Peak Gradient 2 mmHg RVOT Mean Gradient 1 mmHg RVOT VTI 14 cm PV Doppler PV Peak Velocity 1.06 m/s PV Peak Gradient 5 mmHg PV Mean Gradient 2 mmHg PV VTI 18 cm Mitral Valve Name Value Normal MV Doppler MV Peak Velocity 0.77 m/s MV Peak Gradient 2 mmHg MV Mean Gradient 1 mmHg MV VTI 21 cm MV Decel Harrison 413 cm/s2 MV PHT 54 ms MV Area (PHT) 4.1 cm2 4.0-5.0 MV Area (Cont Eq VTI) 4.2 cm2 MV Area Index (Cont Eq VTI) 2.19 cm2/m2 MV Diastolic Function MV E Peak Velocity 1 m/s MV A Peak Velocity 1 m/s MV E/A 1.3 MV Decel Time 186 ms MV Annular TDI MV Septal e' Velocity 9.8 cm/s >=8.0 MV E/e' (Septal) 7.8 <=8.0 MV Lateral e' Velocity 14.9 cm/s >=10.0 MV E/e' (Lateral) 5.2 <=8.0 MV e' Average 12.36 MV E/e' (Average) 6.5 Aorta (more content not included)... Normal [facility] COVID-19, MOLECULARon 2020 SARS-CoV-2 (COVID-19) RNA CLARITA+probe Ql (Unsp spec) Not detected Normal Not Detected [facility] Comment on above: Order Comment: : COV ID-19 Lab Test Only (OP in UTM) Result Comment: This test was performed under the FDA's Emergency Use Authorization (EUA). Testing was performed using the David SARS-CoV-2 RT-PCR assay on the S[employer] David 6800 System. This test has not been approved for use in asymptomatic patients and its performance in this patient population has not been evaluated. Negative results do not rule out the presence of SARS-CoV-2/COVID-19. Fact sheets for this EUA can be found at the following links: For Healthcare Providers: https://www.eFuelDepot.gov/media/772753/download For Patients: https://www.eFuelDepot.gov/Scil Proteins/446106/download Performed By: #### L [id number] #### [facility] [address] [place] [address] Juan Francisco Hager M.D. [id number] XR Chest AP/PA and LATon 1. Bilateral lower l obe bronchitis. 2. No airspace consolidation. [employer] [facility] [employer] Workstation ID: [id number] Interpretation Code [facility] EXAMINATION: TWO-VIE W CHEST HISTORY: ORDERING SYSTEM PROVIDED HISTORY: cough, TECHNOLOGIST PROVIDED HISTORY: Reason for exam: cough x 1 week Illness/Other Cancer History: [place] Surgery, RadiationHistory: [place] Encounter Type: Initial Additional signs and symptoms: n ORDERING SYSTEM PROVIDED DIAGNOSIS CODES: COMPARISON: Chest x-ray 12/25/2017. FINDINGS: Frontal and lateral views of the chest are submitted. Coarsened lower lobe bronchial markings are seen best appreciated on lateral views. The cardiomediastinal silhouette, lungs, pleural spaces and pulmonary vasculature are normal. No acute osseous lesions are seen. Invalid Interpretation Code [facility] Interface, Rad In Fu ji Speechq - 06/11/2018 4:06 AM EDT EXAMINATION: TWO-VIEW CHEST HISTORY: ORDERING SYSTEM PROVIDED HISTORY: cough, TECHNOLOGIST PROVIDED HISTORY: Reason for exam: cough x 1 week Illness/Other Cancer History: uk Surgery, RadiationHistory: Encounter Type: Initial Additional signs and symptoms: n ORDERING SYSTEM PROVIDED DIAGNOSIS CODES: COMPARISON: Chest x-ray 12/25/2017. FINDINGS: Frontal and lateral views of the chest are submitted. Coarsened lower lobe bronchial markings are seen best appreciated on lateral views. The cardiomediastinal silhouette, lungs, pleural spaces and pulmonary vasculature are normal. No acute osseous lesions are seen. IMPRESSION: 1. Bilateral lower lobe bronchitis. 2. No airspace consolidation. R/[facility] Workstation ID: [id number] Invalid Interpretation Code [facility] XR HAND RIGHT 3+ VIEWS (UMANG FROST)on 03-19-2018 XR HAND RIGHT 3+ VIEWS (STANDARD) EXAMINATION:3 XRAY VIEWS OF THE RIGHT HAND 03/18/2018 10:23 pmCOMPARISON:None.HISTORY:O RDERING SYSTEM PROVIDED HISTORY: attention 2nd digit; TECHNOLOGIST PROVIDED HISTORY: Reason for Exam: pointer finger pain Illness/Other Acuity: Acute Cancer History: uk Surgery, Radiation History: uk Type of Encounter: Initial Additional signs and symptoms: noFINDINGS:There is no evidence of acute fracture. There is normal alignment. No acute joint abnormality. No focal osseous lesion. No focal soft tissue abnormality.IMPRESSION:No acute osseous abnormality.Workstation ID: [id number] by: MIGUEL ÁNGEL DANIELS on SunMar 18, 2018 10:56:37 PM EDTTranscribed by: MIGUEL ÁNGEL DANIELS on SunMar 18, 2018 10:56:37 PM EDTFinalized by: IMGUEL ÁNGEL DANIELS on SunMar 18, 2018 10:56:37 PM EDT [facility] Comment on above: Order Comment: Reaso n for exam?:pointer finger painInjury/Trauma or Illness?:Illness/OtherHow long have you had these symptoms (acute/chronic)?:AcuteHistory of cancer?:ukSurgeries, chemotherapy, or radiation?:ukType of Exam?:InitialAdditional signs and symptoms?:no XR Hand Right 3+ Views (Umang frost)on 03-19-2018 XR Hand Right 3+ Views (Standard) No acute osseous abnormality. Workstation ID: [id number] Invalid Interpretation Code [facility] XR Hand Right 3+ Views (Standard) EXAMINATION: 3 XRAY VIEWS OF THE RIGHT HAND 03/18/2018 10:23 pm COMPARISON: None. HISTORY: ORDERING SYSTEM PROVIDED HISTORY: attention 2nd digit; TECHNOLOGIST PROVIDED HISTORY: Reason for Exam: pointer finger pain Illness/Other Acuity: Acute Cancer History: uk Surgery, Radiation History: Type of Encounter: Initial Additional signs and symptoms: no FINDINGS: There is no evidence of acute fracture. There is normal alignment. No acute joint abnormality. No focal osseous lesion. No focal soft tissue abnormality. Invalid Interpretation Code [facility] XR Hand Right 3+ Views (Standard) Interface, Rad In Broderick Speechq - 03/18/2018 10:59 PM EDT EXAMINATION: 3 XRAY VIEWS OF THE RIGHT HAND 03/18/2018 10:23 pm COMPARISON: None. HISTORY: ORDERING SYSTEM PROVIDED HISTORY: attention 2nd digit; TECHNOLOGIST PROVIDED HISTORY: Reason for Exam: pointer finger pain Illness/Other Acuity: Acute Cancer History: uk Surgery, Radiation History: uk Type of Encounter: Initial Additional signs and symptoms: no FINDINGS: There is no evidence of acute fracture. There is normal alignment. No acute joint abnormality. No focal osseous lesion. No focal soft tissue abnormality. IMPRESSION: No acute osseous abnormality. Workstation ID: [id number] Invalid Interpretation Code [facility] BMPon 12-25-2017 Anion gap 10 mmol/L Invalid Interpretation Code 10 - 20 mmol/L [facility] Bicarbonate (HCO3) 27 mmol/L Invalid Interpretation Code 21 - 32 mmol/L [facility] BUN/Creatinine Ratio 12.7 mg/mg Invalid Interpretation Code 10.0 - 20.0 [facility] Calcium 8.3 mg/dL Low 8.4 - 10.2 mg/dL [facility] Chloride 109 mmol/L High 98 - 108 mmol/L [facility] Creatinine 0.71 mg/dL Invalid Interpretation Code 0.5 - 1.3 mg/dL [facility] eGFR (non-black) 125 mL/min/{1.73_m2} Invalid Interpretation Code >=60 [facility] eGFR (non-black) The eGFR should be u sed for monitoring renal function only and not for medication dosing. Invalid Interpretation Code [facility] Glucose 87 mg/dL Invalid Interpretation Code 65 - 99 mg/dL [facility] Potassium 3.2 mmol/L Low 3.5 - 5.1 mmol/L [facility] Sodium 143 mmol/L Invalid Interpretation Code 135 - 145 mmol/L [facility] Urea nitrogen 9 mg/dL Invalid Interpretation Code 8 - 25 mg/dL [facility] CBC Auto Differentialon 04-0 Basophils 0.05 K/mcL Invalid Interpretation Code 0.00 - 0.30 [facility] Basophils/100 leukocytes 0.8 % Invalid Interpretation Code [facility] Eosinophils 0.29 K/mcL Invalid Interpretation Code 0.00 - 0.50 [facility] Eosinophils/100 leukocytes 4.4 % Invalid Interpretation Code [facility] Erythrocytes (RBC) 4.42 M/mcL Low 4.50 - 5.90 [facility] Erythrocytes (RBC) 0.00 K/mcL Invalid Interpretation Code 0.00 - 0.00 [facility] Hematocrit (HCT) 37.1 % Low 41 - 53 % [facility] Hemoglobin (HGB) 13.4 g/dL Low 13.5 - 17.5 g/dL [facility] IG Absolute 0.01 K/mcL Invalid Interpretation Code 0.00 - 0.30 [facility] IG Percent 0.20 % Invalid Interpretation Code [facility] Interpretation and review of laboratory results Abnormal Invalid Interpretation Code [facility] Lymphocytes 2.60 K/mcL Invalid Interpretation Code 0.90 - 4.00 [facility] Lymphocytes/100 leukocytes 39.6 % Invalid Interpretation Code [facility] MCH 30.3 pg Invalid Interpretation Code 26 - 34 pg [facility] MCHC 36.1 g/dL Invalid Interpretation Code 31 - 37 g/dL [facility] MCV 83.9 fL Invalid Interpretation Code 80 - 100 fL [facility] Monocytes 0.90 K/mcL Invalid Interpretation Code 0.30 - 0.90 [facility] Monocytes/100 leukocytes 13.7 % Invalid Interpretation Code [facility] Neutrophils 2.72 K/mcL Invalid Interpretation Code 1.70 - 7.00 [facility] Neutrophils/100 leukocytes 41.3 % Invalid Interpretation Code [facility] Nucleated erythrocytes/100 erythrocytes 0.0 % Invalid Interpretation Code [facility] Platelet mean volume (PMV) 10.2 fL Invalid Interpretation Code 9 - 15.5 fL [facility] Platelets 214 K/mcL Invalid Interpretation Code 150 - 400 [facility] RDW-CA 13.5 % Invalid Interpretation Code 11.6 - 14.8 % [facility] WBC (Leukocytes) 6.57 K/mcL Invalid Interpretation Code 4.50 - 11.00 [facility] CBC w/ Diffon 12-25-2017 Creatinine The following orders were created for panel order CBC w/ Diff. Procedure Abnormality Status --------- ------ CBC Auto Differential[[id number]] Abnormal Final result Please view results for these tests on the individual orders. Invalid Interpretation Code [facility] Gold Topon 12-25-2017 Extra Tube Hold for add-ons. Invalid Interpretation Code [facility] Hepatic Function Panel (LFT) on 12-25-2017 Alanine aminotransferase (ALT) 18 U/L Invalid Interpretation Code 14 - 65 U/L [facility] Albumin 3.8 g/dL Invalid Interpretation Code 3.2 - 5.2 g/dL [facility] Alkaline phosphatase (ALP) 84 U/L Invalid Interpretation Code 40 - 140 U/L [facility] Aspartate aminotransferase (AST) 22 U/L Invalid Interpretation Code 0 - 45 U/L [facility] Bilirubin (conjugated) mg/dL Invalid Interpretation Code 0 - 0.4 mg/dL [facility] Bilirubin (total) 0.3 mg/dL Invalid Interpretation Code 0 - 1.3 mg/dL [facility] Protein 6.9 g/dL Invalid Interpretation Code 6 - 8 g/dL [facility] Lipaseon 12-25-2017 Interpretation and review of laboratory results Normal Invalid Interpretation Code [facility] Lipase 143 U/L Invalid Interpretation Code 73 - 393 U/L [facility] Troponinon 12-25-2017 Troponin I ng/mL Invalid Interpretation Code <=45 ng/L [facility] US Abdomen Limited Studyon 0 12-25-2017 US Abdomen Limited Study EXAMINATION: US ABDOMEN LIMITED STUDY HISTORY: ORDERING SYSTEM PROVIDED HISTORY: abd pain, vomiting, TECHNOLOGIST PROVIDED HISTORY: Reason for exam: pain Injury/Trauma Cancer History: uk Surgery, RadiationHistory: uk Encounter Type: Initial Mechanism of injury: pain ORDERING SYSTEM PROVIDED DIAGNOSIS CODES: COMPARISON: Correlation is made with CT abdomen and pelvis examination dated 05/04/2015. TECHNIQUE: Real-time ultrasonography of the right upper quadrant was performed using Color Doppler and reviewed. FINDINGS: The liver is normal in echogenicity with no focal intrahepatic lesions. The gallbladder is normal in appearance without evidence of cholelithiasis, gallbladder wall thickening, or pericholecystic fluid. There is no intrahepatic biliary ductal dilation. The common bile duct is not visualized due to overlying bowel gas. The right kidney is normal in size and cortical echogenicity, without evidence of focal mass, calcification, or hydronephrosis. The right kidney measures 9.1 cm in length. The visualized portions of the pancreas and aorta are unremarkable. Invalid Interpretation Code [facility] US Abdomen Limited Study Interface, Rad In Pacs Powerscribe - 12/25/2017 6:13 AM EDT EXAMINATION: US ABDOMEN LIMITED STUDY HISTORY: ORDERING SYSTEM PROVIDED HISTORY: abd pain, vomiting, TECHNOLOGIST PROVIDED HISTORY: Reason for exam: pain Injury/Trauma Cancer History: uk Surgery, RadiationHistory: uk Encounter Type: Initial Mechanism of injury: pain ORDERING SYSTEM PROVIDED DIAGNOSIS CODES: COMPARISON: Correlation is made with CT abdomen and pelvis examination dated 05/04/2015. TECHNIQUE: Real-time ultrasonography of the right upper quadrant was performed using Color Doppler and reviewed. FINDINGS: The liver is normal in echogenicity with no focal intrahepatic lesions. The gallbladder is normal in appearance without evidence of cholelithiasis, gallbladder wall thickening, or pericholecystic fluid. There is no intrahepatic biliary ductal dilation. The common bile duct is not visualized due to overlying bowel gas. The right kidney is normal in size and cortical echogenicity, without evidence of focal mass, calcification, or hydronephrosis. The right kidney measures 9.1 cm in length. The visualized portions of the pancreas and aorta are unremarkable. IMPRESSION: Unremarkable right upper quadrant ultrasound examination. [facility] Work[facility] ID: [id number] Invalid Interpretation Code [facility] [place] US Abdomen Limited Study Unremarkable right upper quadrant ultrasound examination. [facility] Work[facility] ID: [id number] Invalid Interpretation Code [facility] [place] Urinalysison 12-25-2017 Bilirubin, Urine Negative Invalid Interpretation Code Negative [facility] Blood, Urine Negative Invalid Interpretation Code Negative [facility] Interpretation and review of laboratory results Normal Invalid Interpretation Code [facility] Nitrite, Urine Negative Invalid Interpretation Code Negative [facility] RBCs, Urine 1 /hpf Invalid Interpretation Code 0 - 3 [facility] Urine, bacteria in sediment None Seen Invalid Interpretation Code None Seen /hpf [facility] Urine, clarity Clear Invalid Interpretation Code Clear [facility] Urine, color Yellow Invalid Interpretation Code Colorless, Yellow [facility] Urine, glucose presence Negative Invalid Interpretation Code Negative mg/dL [facility] Urine, ketones presence Negative Invalid Interpretation Code Negative mg/dL [facility] Urine, leukocyte esterase presence Negative Invalid Interpretation Code Negative [facility] Urine, pH 7.0 [pH] Invalid Interpretation Code 5.0 - 7.0 [facility] Urine, protein Negative Invalid Interpretation Code Negative mg/dL [facility] Urine, specific gravity <=1.005 Invalid Interpretation Code 1.005 - 1.025 [facility] Urine, urobilinogen <2.0 Invalid Interpretation Code <2.0 mg/dL [facility] Urinalysis Microscopic examinat ion is performed on all urinalysis samples and only positive findings are reported. The test for blood on the chemical analytic portion of urinalysis may also be positive due to hemoglobinuria and myoglobinuria and if red blood cells are present they are quantified by microscopic examination. Invalid Interpretation Code [facility] XR Chest 1 Viewon 12-25-2017 XR Chest 1 View EXAMINATION: XR CHES T PA/AP HISTORY: ORDERING SYSTEM PROVIDED HISTORY: sob, TECHNOLOGIST PROVIDED HISTORY: Reason for exam: RUQ pain with emesis Illness/Other Cancer History: uk Surgery, RadiationHistory: uk Encounter Type: Initial Additional signs and symptoms: none ORDERING SYSTEM PROVIDED DIAGNOSIS CODES: COMPARISON: None available. FINDINGS: The heart is normal in size. The lungs are clear. There is no significant pneumothorax or pleural effusion. No acute osseous abnormality is seen. Invalid Interpretation Code [facility] [place] XR Chest 1 View No acute cardiopulmo nary abnormality. [facility] Workstation ID: [id number] Invalid Interpretation Code [facility] [place] XR Chest 1 View Interface, Rad In Pa cs [employer] - 12/25/2017 6:16 AM EDT EXAMINATION: XR CHEST PA/AP HISTORY: ORDERING SYSTEM PROVIDED HISTORY: sob, TECHNOLOGIST PROVIDED HISTORY: Reason for exam: RUQ pain with emesis Illness/Other Cancer History: uk Surgery, RadiationHistory: uk Encounter Type: Initial Additional signs and symptoms: none ORDERING SYSTEM PROVIDED DIAGNOSIS CODES: COMPARISON: None available. FINDINGS: The heart is normal in size. The lungs are clear. There is no significant pneumothorax or pleural effusion. No acute osseous abnormality is seen. IMPRESSION: No acute cardiopulmonary abnormality. [facility] Workstation ID: [id number] Invalid Interpretation Code [facility] Vital Signs Date Time Vital Sign Value Performing Clinician Facility 09-28-2024 09:45-0500 Body height 177.8 cm Cami Reid MD Work Phone: [employer] 09-28-2024 09:45-0500 Body mass index (BMI) [Ratio] 25.11 kg/m2 Cami Reid MD Work Phone: [employer] 09-28-2024 09:45-0500 Body temperature 98.4 [degF] Cami Reid MD Work Phone: [employer] 09-28-2024 09:45-0500 Body weight 79.38 kg Cami Reid MD Work Phone: [employer] 09-28-2024 09:45-0500 Diastolic blood pressure 91 mm[Hg] Cami Reid MD Work Phone: [employer] 09-28-2024 09:45-0500 Heart rate 90 /min Cami Reid MD Work Phone: [employer] 09-28-2024 09:45-0500 Respiratory rate 18 /min Cami Reid MD Work Phone: [employer] 09-28-2024 09:45-0500 SaO2% (BldA) [Mass fraction] 98 % Cami Reid MD Work Phone: [employer] 09-28-2024 09:45-0500 Systolic blood pressure 151 mm[Hg] Cami Reid MD Work Phone: [employer] 03-21-2023 12:00-0400 Diastolic blood pressure 74 mm[Hg] Non-Staff physician [facility] 03-21-2023 12:00-0400 Heart rate 60 /min Non-Staff physician [facility] 03-21-2023 12:00-0400 Respiratory rate 16 /min Non-Staff physician [facility] 03-21-2023 12:00-0400 SaO2% (BldA) [Mass fraction] 94 % Non-Staff physician [facility] 03-21-2023 12:00-0400 Systolic blood pressure 115 mm[Hg] Non-Staff physician [facility] 03-21-2023 09:34-0400 Body height 175.26 cm Non-Staff physician [facility] 03-21-2023 09:34-0400 Body mass index (BMI) [Ratio] 26.7 kg/m2 Non-Staff physician [facility] 03-21-2023 09:34-0400 Body temperature 97 [degF] Non-Staff physician [facility] 03-21-2023 09:34-0400 Body weight 82 kg Non-Staff physician [facility] 10-15-2022 09:34-0500 Diastolic blood pressure 85 mm[Hg] [facility] 10-15-2022 09:34-0500 Systolic blood pressure 122 mm[Hg] [facility] 10-15-2022 09:02-0500 Heart rate 54 /min [facility] 10-15-2022 07:22-0500 Respiratory rate 18 /min [facility] 10-15-2022 07:22-0500 SaO2% (BldA) [Mass fraction] 94 % [facility] 10-15-2022 07:06-0500 Body height 175.26 cm [facility] 10-15-2022 07:06-0500 Body mass index (BMI) [Ratio] 26.6 kg/m2 [facility] 10-15-2022 07:06-0500 Body temperature 97.5 [degF] [facility] 10-15-2022 07:06-0500 Body weight 81.8 kg [facility] 12-03-2021 13:38-0500 Body height 175.3 cm Antoni Ruff MD Work Phone: [facility] 12-03-2021 13:38-0500 Body mass index (BMI) [Ratio] 25.84 kg/m2 Antoni Ruff MD Work Phone: [facility] 12-03-2021 13:38-0500 Body temperature 97.11 [degF] Antoni Ruff MD Work Phone: [facility] 12-03-2021 13:38-0500 Body weight 79.38 kg Antoni Ruff MD Work Phone: [facility] 12-03-2021 13:38-0500 Diastolic blood pressure 75 mm[Hg] Antoni Ruff MD Work Phone: [facility] 12-03-2021 13:38-0500 Heart rate 72 /min Antoni Ruff MD Work Phone: [facility] 12-03-2021 13:38-0500 Respiratory rate 18 /min Antoni Ruff MD Work Phone: [facility] 12-03-2021 13:38-0500 SaO2% (BldA) [Mass fraction] 96 % Antoni Ruff MD Work Phone: [facility] 12-03-2021 13:38-0500 Systolic blood pressure 133 mm[Hg] Antoni Ruff MD Work Phone: [facility] 09-02-2021 14:20-0500 Body height 175.3 cm None [facility]cp [facility] 09-02-2021 14:20-0500 Body mass index (BMI) [Ratio] 25.1 kg/m2 None Pcp [facility] 09-02-2021 14:20-0500 Body temperature 98.1 [degF] None Pcp [facility] 09-02-2021 14:20-0500 Body weight 77.11 kg None Pcp [facility] 09-02-2021 14:20-0500 Diastolic blood pressure 62 mm[Hg] None Pcp [facility] 09-02-2021 14:20-0500 Heart rate 69 /min None Pcp [facility] 09-02-2021 14:20-0500 Respiratory rate 20 /min None Pcp [facility] 09-02-2021 14:20-0500 SaO2% (BldA) [Mass fraction] 96 % None Pcp [facility] 09-02-2021 14:20-0500 Systolic blood pressure 125 mm[Hg] None Pcp [facility] 07-17-2021 00:34-0400 Diastolic blood pressure 78 mm[Hg] Ryan Ramirez MD Work Phone: [facility] 07-17-2021 00:34-0400 Heart rate 53 /min Ryan Ramirez MD Work Phone: [facility] 07-17-2021 00:34-0400 Respiratory rate 20 /min Ryan Ramirez MD Work Phone: [facility] 07-17-2021 00:34-0400 SaO2% (BldA) [Mass fraction] 98 % Ryan Ramirez MD Work Phone: [facility] 07-17-2021 00:34-0400 Systolic blood pressure 127 mm[Hg] Ryan Ramirez MD Work Phone: [facility] 07-16-2021 19:35-0400 Body height 175.3 cm Ryan Ramirez MD Work Phone: [facility] 07-16-2021 19:35-0400 Body mass index (BMI) [Ratio] 25.1 kg/m2 Ryan Ramirez MD Work Phone: [facility] 07-16-2021 19:35-0400 Body temperature 97.7 [degF] Ryan Ramirez MD Work Phone: [facility] 07-16-2021 19:35-0400 Body weight 77.11 kg Ryan Ramirez MD Work Phone: [facility] 03-14-2021 14:29-0400 Body mass index (BMI) [Ratio] 25.1 kg/m2 Angelica Obando CNP Work Phone: [facility] 03-14-2021 14:29-0400 Body temperature 98.91 [degF] Angelica Obando BUSINESS SERVICES ASSOCIATE Work Phone: [facility] 03-14-2021 14:29-0400 Body weight 77.11 kg Angelica Obando CNP Work Phone: [facility] 03-14-2021 14:29-0400 Diastolic blood pressure 78 mm[Hg] Angelica Obando CNP Work Phone: [facility] 03-14-2021 14:29-0400 Heart rate 85 /min Angelica Obando CNP Work Phone: [facility] 03-14-2021 14:29-0400 SaO2% (BldA) [Mass fraction] 94 % Angelica Obando CNP Work Phone: [facility] Comment on above: [facility] 03-14-2021 14:29-0400 Systolic blood pressure 116 mm[Hg] Angelica Obando CNP Work Phone: [facility] 02-11-2021 13:37-0400 Body mass index (BMI) [Ratio] 25.22 kg/m2 Angelica Obando CNP Work Phone: [facility] 02-11-2021 13:37-0400 Body temperature 98.91 [degF] Angelica Obando BUSINESS SERVICES ASSOCIATE Work Phone: [facility] 02-11-2021 13:37-0400 Body weight 77.47 kg Angelica Obando BUSINESS SERVICES ASSOCIATE Work Phone: [facility] 02-11-2021 13:37-0400 Diastolic blood pressure 80 mm[Hg] Angelica Obando BUSINESS SERVICES ASSOCIATE Work Phone: [facility] 02-11-2021 13:37-0400 Heart rate 94 /min Angelica Obando BUSINESS SERVICES ASSOCIATE Work Phone: [facility] 02-11-2021 13:37-0400 SaO2% (BldA) [Mass fraction] 96 % Angelica Obando BUSINESS SERVICES ASSOCIATE Work Phone: [facility] 02-11-2021 13:37-0400 Systolic blood pressure 120 mm[Hg] Angelica Obando BUSINESS SERVICES ASSOCIATE Work Phone: [facility] 06-11-2018 01:15-0400 BP Diastolic 74 mm[Hg] Angelica Bermudez [facility] 06-11-2018 01:15-0400 BP Systolic 120 mm[Hg] Angelica Bermudez [facility] 06-11-2018 01:15-0400 Pulse (Heart Rate) 106 /min Angelica Bermudez [facility] 06-11-2018 01:15-0400 Pulse Oximetry 93 % Angelica Bermudez [facility] 06-11-2018 01:13-0400 Respiratory Rate 16 /min Angelica Bermudez [facility] 06-11-2018 00:01-0400 BMI (Body Mass Index) 23.68 kg/m2 Angelica Bermudez [facility] 06-11-2018 00:01-0400 Body Temperature 98.6 [degF] Angelica Bermudez [facility] 06-11-2018 00:01-0400 Height 177.8 cm Angelica Bermudez [facility] 06-11-2018 00:01-0400 Weight 74.84 kg Angelica Bermudez [facility] 03-28-2018 00:08-0400 BMI (Body Mass Index) 24.42 kg/m2 Kalyan Arriaza [facility] 03-28-2018 00:08-0400 Body Temperature 98.4 [degF] Kalyan Arriaza [facility] 03-28-2018 00:08-0400 BP Diastolic 84 mm[Hg] Kalyan Arriaza [facility] 03-28-2018 00:08-0400 BP Systolic 126 mm[Hg] Kalyan Arriaza [facility] [facility] 03-28-2018 00:08-0400 Height 175.3 cm Kalyan Arriaza [facility] 03-28-2018 00:08-0400 Pulse (Heart Rate) 84 /min Kalyan Arriaza [facility] 03-28-2018 00:08-0400 Pulse Oximetry 96 % Kalyan Arriaza [facility] 03-28-2018 00:08-0400 Respiratory Rate 18 /min Kalyan Arriaza [facility] 03-28-2018 00:08-0400 Weight 75 kg Kalyan Arriaza [facility] 03-18-2018 21:48-0400 BMI (Body Mass Index) 24.37 kg/m2 Margie Porras [facility] 03-18-2018 21:48-0400 Body Temperature 98.71 [degF] Margie Porras [facility] 03-18-2018 21:48-0400 BP Diastolic 85 mm[Hg] Margie Porras [facility] 03-18-2018 21:48-0400 BP Systolic 124 mm[Hg] Margie Porras [facility] 03-18-2018 21:48-0400 Height 175.3 cm Margie Porras [facility] 03-18-2018 21:48-0400 Pulse (Heart Rate) 76 /min Margie Porras [facility] 03-18-2018 21:48-0400 Pulse Oximetry 97 % Margie Porras [facility] 03-18-2018 21:48-0400 Respiratory Rate 18 /min Margie Porras [facility] 03-18-2018 21:48-0400 Weight 74.84 kg Margie Porras [facility] 12-25-2017 05:52-0400 BP Diastolic 85 mm[Hg] [facility] 12-25-2017 05:52-0400 BP Systolic 126 mm[Hg] [facility] 12-25-2017 05:52-0400 Pulse (Heart Rate) 64 /min [facility] 12-25-2017 05:52-0400 Respiratory Rate 18 /min [facility] 12-25-2017 05:30-0400 Pulse Oximetry 92 % [facility] 12-25-2017 03:20-0400 BMI (Body Mass Index) 24.22 kg/m2 [facility] 12-25-2017 03:20-0400 Body Temperature 97.59 [degF] Alexus Arriaza [facility] 12-25-2017 03:20-0400 Height 175.3 cm Alexus Arriaza [facility] 12-25-2017 03:20-0400 Weight 74.39 kg Alexus Arriaza [facility] Encounters Encounter Date Encounter Type Care Provider Facility Start: 10-28-2024 End: 11-01-2024 [facility] Start: 09-28-2024 End: 09-28-2024 Emergency department patient visit Cami Reid MD Work Phone: [facility] Emergency Department Comment on above: Upper respiratory tr act infection, unspecified type (Primary Dx); Acute viral conjunctivitis of right eye Start: 08-18-2024 End: 08-20-2024 [facility] Start: 08-18-2024 End: 08-20-2024 Subsequent hospital visit by physician Alexei Luna DO Work Phone: [facility] Non-Invasive Cardiology Comment on above: Left-sided chest antonio n; Chest pain, unspecified type Start: 08-11-2024 End: 08-11-2024 [facility] Start: 08-11-2024 End: 08-11-2024 Subsequent hospital visit by physician [facility] EEG Comment on above: Seizure disorder (HC C) Start: 08-06-2024 End: 08-08-2024 ambulatory [facility] Start: 08-06-2024 End: 08-08-2024 Subsequent hospital visit by physician [facility] Comment on above: Left-sided chest antonio n; Chest pain, unspecified type Start: 04-29-2024 End: 04-29-2024 ambulatory Margie HOPKINS Facility[facility] Start: 02-13-2024 End: 02-13-2024 Emergency department patient visit [facility]AL[facility] Start: 02-13-2024 End: 02-13-2024 ambulatory MARSHA KENNEY [facility] Start: 02-11-2024 End: 02-11-2024 Emergency department patient visit RACHEL JONES [facility] Start: 02-11-2024 ambulatory RC Daniel ALEGRI[facility] Start: 03-21-2023 End: 03-21-2023 Emergency department patient visit Rosalio German Facility:[facility] Start: 03-21-2023 End: 03-21-2023 Emergency department patient visit Non-Staff physician [facility] Start: 11-17-2022 End: 11-17-2022 Emergency department patient visit Rosalio German Facility:[facility] Start: 11-17-2022 ambulatory Shirley Alejandro Facility:[facility] Start: 11-03-2022 ambulatory POWER SUPPLY ENGINEER.BRENDA Khanna Facility:[facility] Start: 10-27-2022 ambulatory POWER SUPPLY ENGINEER.BRENDA Khanna Facility:[facility] Start: 10-27-2022 Encounter for other preprocedural examination POWER SUPPLY ENGINEER.BRENDA Khanna [facility] Start: 10-19-2022 ambulatory POWER SUPPLY ENGINEER.BRENDA Khanna Facility:[facility] Start: 10-19-2022 Patient encounter procedure [facility] Start: 10-15-2022 End: 10-15-2022 Emergency department patient visit Milton Linda Facility:[facility] Start: 10-15-2022 End: 10-15-2022 Emergency department patient visit [facility] Start: 09-12-2022 ambulatory POWER SUPPLY ENGINEER.BRENDA Eason Facility:[facility] Start: 07-26-2022 ambulatory Milton Mckeon Facilit y:[facility] Start: 06-27-2022 ambulatory POWER SUPPLY ENGINEER.BUSINESS SERVICES ASSOCIATE Alcides Lee Facility:[facility] Start: 06-16-2022 End: 06-16-2022 Subsequent hospital visit by physician Ivan Mckeon MD Work Phone: [facility] Comment on above: Encounter for vasect yuliya Start: 06-16-2022 End: 06-17-2022 ambulatory IVAN MCKEON [facility] Start: 02-17-2022 End: 02-17-2022 ambulatory NONE PCP [facility] Start: 01-16-2022 End: 01-16-2022 ambulatory NONE PCP [facility] Start: 01-02-2022 End: 01-02-2022 Emergency department patient visit JENNA COX [facility] Start: 12-27-2021 End: 12-27-2021 ambulatory NONE [facility] Start: 12-03-2021 End: 12-03-2021 Emergency department patient visit NONE [facility] [employer] [facility] Start: 12-03-2021 End: 12-03-2021 Emergency department patient visit Antoni Ruff MD Work Phone: [facility] Emergency Dept Comment on above: Epididymitis, left ( Primary Dx); Epididymal cyst Start: 11-18-2021 ambulatory NONE PCP [facility] Start: 10-24-2021 End: 10-24-2021 ambulatory NONE [facility] Start: 10-22-2021 End: 10-22-2021 ambulatory NONE [facility] [employer] [facility] Start: 09-21-2021 End: 09-21-2021 ambulatory NONE [facility] Start: 09-21-2021 End: 09-21-2021 Emergency department patient visit NONE [facility] Start: 09-02-2021 End: 09-02-2021 Emergency department patient visit RUBI VALE [facility] Start: 09-02-2021 End: 09-02-2021 Emergency department patient visit None [facility] Emergency Dept Comment on above: Acute bronchitis, un specified organism (Primary Dx) Start: 07-16-2021 End: 07-17-2021 Emergency department patient visit RYAN RAMIREZ [facility] Start: 07-16-2021 End: 07-17-2021 Emergency department patient visit Ryan Ramirez MD Work Phone: [facility] Emergency Dept Comment on above: Shortness of breath (Primary Dx) Start: 03-16-2021 End: 03-17-2021 ambulatory [facility] Start: 03-16-2021 End: 03-16-2021 Subsequent hospital visit by physician Jenna Cox [facility] Work Phone: [facility] Comment on above: Arrived Start: 03-14-2021 End: 03-14-2021 ambulatory ANGELICA OBANDO [facility] Start: 03-14-2021 End: 03-14-2021 Office outpatient visit 25 minutes Angelica Obando BUSINESS SERVICES ASSOCIATE Work Phone: [facility] Comment on above: Mild intermittent as thma without complication (Primary Dx); SOB (shortness of breath); Tobacco dependence with current use Start: 03-03-2021 End: 03-04-2021 ambulatory ANGELICA OBANDO [facility] Start: 02-28-2021 End: 02-28-2021 ambulatory JENNA Lyly [facility] Start: 02-18-2021 End: 02-19-2021 ambulatory [facility] Start: 02-18-2021 End: 02-18-2021 Subsequent hospital visit by physician Jenna Cox CNP Work Phone: [facility] Comment on above: Arrived Start: 02-11-2021 End: 02-11-2021 ambulatory ANGELICA OBANDO [facility] Start: 02-11-2021 End: 02-11-2021 Office outpatient new 45 minutes Angelica Obando BUSINESS SERVICES ASSOCIATE Work Phone: [facility] Comment on above: Episodic lightheaded ness (Primary Dx); Shortness of breath; Encounter for preprocedure screening laboratory testing for COVID-19; Tobacco Dependence Start: 02-11-2021 End: 02-11-2021 Patient encounter status Angelica Obnado BUSINESS SERVICES ASSOCIATE Work Phone: [facility] Start: 08-12-2018 End: 08-13-2018 Patient encounter procedure VIRGINIA ANTUNEZ Facility:01 Start: 06-11-2018 End: 06-11-2018 Emergency department patient visit Angelica Bermudez Work Phone: [facility] Emergency Department Comment on above: Bronchitis (Primary Dx) Start: 03-28-2018 End: 03-28-2018 Emergency department patient visit Kalyan Arriaza Work Phone: [facility] Emergency Department Start: 03-18-2018 End: 03-19-2018 Emergency department patient visit PHYSICIAN [facility] Start: 03-18-2018 End: 03-19-2018 Emergency department patient visit Margie Porras Work Phone: [facility] Emergency Department Start: 12-25-2017 End: 12-25-2017 Emergency department patient visit Alexus Arriaza Work Phone: [facility] Emergency Department Start: 04-02-2017 End: 04-02-2017 Emergency department patient visit PHYSICIAN DONALD [facility] Procedures Date Procedure Procedure Detail Performing Clinician Start: 08-18-2024 Cv strs tst xers&/or rx cont ecg trcg only Alexei Luna DO Work Phone: Start: 08-06-2024 Ecg routine ecg w/le ast 12 lds w/i&r Alexei Luna DO Work Phone: Start: 08-06-2024 Comprehensive metabo lic panel Alexei Luna DO Work Phone: Start: 08-06-2024 Lipid panel Alexei powell DO Work Phone: Start: 03-21-2023 Blood count hemoglobin Santamarialamonte German Comment on above: Performed By: #### T 4, RAPIDTROP, MG, TSH, PROF #### [place] [address] Start: 10-19-2022 Blood count hemoglobin Santamaria Yeyazmin Comment on above: Performed By: #### C BCAD #### [place] [address] Start: 10-15-2022 Blood count hemoglobin Santamaria Yeh Comment on above: Performed By: #### C BCAD #### [place] [address] Start: 12-03-2021 Urnls dip stick/tabl et reagent auto microscopy Kandice Lal APRN BUSINESS SERVICES ASSOCIATE Work Phone: Start: 12-03-2021 Us scrotum & contents E errol Lal APRN BUSINESS SERVICES ASSOCIATE Work Phone: Start: 12-03-2021 CBC W Auto Different ial panel - Blood Kandice Lal APRN BUSINESS SERVICES ASSOCIATE Work Phone: Start: 12-03-2021 Comprehensive metabo lic panel Kandice Lal APRN BUSINESS SERVICES ASSOCIATE Work Phone: Start: 12-03-2021 GLOMERULAR FILTRATION RATE Kandice Lal APRN BUSINESS SERVICES ASSOCIATE Work Phone: Start: 09-02-2021 Radiologic exam ches t 2 views Rubi Vale MD Work Phone: Start: 09-02-2021 Infectious agent dna /rna influenza 1st 2 types Rubi Vale MD Work Phone: Start: 09-02-2021 Sars-cov-2 detection by dna/rna Rubi Vale MD Work Phone: Start: 07-16-2021 Radiologic exam ches t single view Christine Robles APRN BUSINESS SERVICES ASSOCIATE Work Phone: Start: 07-16-2021 Basic metabolic pane l calcium total Christine Robles APRN BUSINESS SERVICES ASSOCIATE Work Phone: Start: 07-16-2021 CBC W Auto Different ial panel - Blood Christine Robles APRN BUSINESS SERVICES ASSOCIATE Work Phone: Start: 07-16-2021 GLOMERULAR FILTRATION RATE Christine Robles APRN BUSINESS SERVICES ASSOCIATE Work Phone: Start: 07-16-2021 Sars-cov-2 detection by dna/rna Christine Robles APRN BUSINESS SERVICES ASSOCIATE Work Phone: Start: 07-16-2021 Ecg routine ecg w/le ast 12 lds trcg only w/o i&r Christine Robles APRN BUSINESS SERVICES ASSOCIATE Work Phone: Start: 03-16-2021 TTE w or wo fol wcon,Doppler Jenna Cox BUSINESS SERVICES ASSOCIATE Work Phone: Start: 01-20-2021 Adult depression scr eening assessment Angelica Obando BUSINESS SERVICES ASSOCIATE Work Phone: Start: 06-11-2018 End: 06-11-2018 Radiologic exam chest 2 views Angelica Bermudez Work Phone: Plan of Treatment Date Care Activity Detail Author Start: 10-19-2032 DTaP/Tdap/Td vaccine (2 - Td or Tdap) DTaP/Tdap/Td vaccine (2 - Td or Tdap) [facility] Start: 08-06-2025 Depression Screen Depression Screen [facility] Start: 11-03-2024 End: 11-03-2024 Patient encounter procedure 11/03/2024 10:40 AM EST Office Visit [facility] [address] [place] [address] Nasreen Coon MD [address] [place] [address] [place] [address] Seizure disorder (HCC) [facility] Comment on above: Seizure disorder (HC C) Start: 09-03-2024 End: 09-03-2024 Patient encounter procedure 09/03/2024 9:20 AM EST Office Visit [facility] [address] [facility] [place] [id number] Alexei Luna DO [address] [facility] [place] [address] 4 week recheck - Maxalt efficacy, heart workup [facility] Comment on above: 4 week recheck - Max alt efficacy, heart workup Start: 08-28-2024 End: 08-28-2024 Patient encounter procedure 08/28/2024 9:30 AM EST Appointment [facility] [address] [facility] [place] [address] Alexei Luna DO [address] [facility] [place] [address] EPIC/PER PT JESSICA [facility] Comment on above: EPIC/PER PT HEA THER Start: 08-18-2024 End: 08-18-2024 Patient encounter procedure 08/18/2024 10:15 AM EST Appointment [facility] [address] [place] [address] Alexei Luna DO [address] [place] [address] EPIC/PER PT -JESSICA [facility] Comment on above: EPIC/PER PT -HEA THER Start: 08-18-2024 Subsequent hospital visit by physician 08/18/2024 10:15 AM EST [facility] [address] [place] [address] Alexei Luna DO [address] [place] [address] [facility] Start: 08-11-2024 End: 08-11-2024 Patient encounter procedure 08/11/2024 10:30 AM EST Appointment [facility] [address] [id number] EPIC/PER -JESSICA [facility] Comment on above: EPIC/PER -HEATHE R Start: 05-25-2024 COVID-19 Vaccine ( season) COVID-19 Vaccine ( season) [facility] Start: 04-24-2024 Influenza vaccination Flu vaccine (# 1) [facility] Start: 05-25-2022 Influenza vaccinatio n given INFLUENZA VACCINE (#1) [facility] Start: 02-17-2022 End: 02-17-2022 Patient encounter procedure 02/17/2022 Office Visit Urology Nakia Squires PA-C [address] [place] [address] [id number] [facility] Start: 02-15-2022 History and physical examination, annual for health maintenance Wellness Visit [facility] Start: 01-20-2022 Depression screening using PHQ-9 (Patient Health Questionnaire 9) score Depression Screening (PHQ9) [facility] Start: 2021 Fasting lipid profile LIPID SCREENIN G [facility] Start: 06-17-2021 End: 06-17-2021 Patient encounter procedure 06/17/2021 Office Visit Pulmonology Angelica Obando, BUSINESS SERVICES ASSOCIATE [address] [place] [address] [place] [phone] [facility] Start: 05-25-2021 Influenza vaccination Sequenti al Influenza Vaccine (Season Ended) [facility] Start: 05-25-2021 Influenza vaccinatio n given INFLUENZA VACCINE (#1) [facility] Start: 03-30-2021 End: 03-30-2021 Patient encounter procedure 03/30/2021 Office Visit Primary Care Jenna Cox CNP [address] [place] [phone] [place] [address] Start: 03-16-2021 End: 03-16-2021 Patient encounter procedure 03/16/2021 Appointment Cardiology Jenna Cox CNP [address] [place] [phone] [facility] Start: 03-16-2021 Subsequent hospital visit by physician 03/16/2021 Hospital Encounter Cardiology Jenna Cox CNP [address] [place] [phone] [facility] Start: 03-11-2021 End: 03-11-2021 Patient encounter procedure 03/11/2021 Office Visit Pulmonology Angelica Obando, BUSINESS SERVICES ASSOCIATE [address] [place] [address] [phone] [facility] Start: 02-28-2021 End: 02-28-2021 Patient encounter procedure 02/28/2021 Office Visit Primary Care Jenna Cox CNP [address] [place] [phone] [place] [address] Start: 01-25-2021 COVID-19 Vaccine (2 - Pfizer 2-dose series) COVID-19 Vaccine (2 - Pfizer 2-dose series) [facility] Start: 05-25-2018 Influenza vaccination [facility] Start: 05-25-2017 Influenza vaccination SEQUENTI AL INFLUENZA VACCINE (#1) [facility] Start: 11-14-2004 Hepatitis B vaccine (3 of 3 - 3-dose series) Hepatitis B vaccine (3 of 3 - 3-dose series) [facility] Start: 2004 ANNUAL WELLNESS VISIT ANNUAL WELLNES S VISIT [facility] Start: 2004 Hepatitis C screening B [facility] Start: 2001 HIV screening [facility] Start: 1999 Varicella vaccine (1 of 2 - 13+ 2-dose series) Varicella vaccine (1 of 2 - 13+ 2-dose series) [facility] Start: 1998 Depression screening using PHQ-9 (Patient Health Questionnaire 9) score DEPRESSION SCREENING [facility] Start: 1997 Administration of diphtheria + tetanus + acellular pertussis vaccine DTAP/TDAP/TD VACCINE (1 - Tdap) [facility] Start: 1997 Diphtheria + pertuss is + tetanus vaccine (product) DTAP/TDAP/TD VACCINE (1 - Tdap) [facility] Start: 1992 Pneumococcal 0-64 ye ars Vaccine (1 of 2 - PCV) Pneumococcal 0-64 years Vaccine (1 of 2 - PCV) [facility] Start: 1992 Pneumococcal Vaccine : Ped or At-Risk (1 of 2 - PPSV23) Pneumococcal Vaccine: Ped or At-Risk (1 of 2 - PPSV23) [facility] Start: 1991 COVID-19 VACCINE (1) COVID-19 VACCIN E (1) [facility] Start: 1989 History and physical examination, annual for health maintenance Wellness Visit [facility] Start: 02-16-1987 COVID-19 VACCINE (#1) COVID-19 VACCI NE (#1) [facility] Start: 1986 [facility]anus [facility] End: 02-18-2021 24 Hour ECG Holter monitor- up to 48 hour Cardiac Services Routine Dyspnea, unspecified type Palpitation Once for 1 Occurrences starting 02/18/2021 until 02/18/2021 [facility] Comment on above: Once for 1 Occurrenc es starting 02/18/2021 until 02/18/2021 Borrelia burgdorferi Ab [Units/volume] in Serum by Immunoassay [facility] End: 08-06-2024 Cardiac holter monitor (1 day-2 day) [employer] Comment on above: 1 Occurrences starti ng 08/06/2024 until 08/06/2024 End: 12-03-2021 Chlamydia trachomatis+Neisseria gonorrhoeae rRNA [Presence] in Cervix by Probe [employer] Work Phone: Comment on above: One Time for 1 Occur rences starting 12/03/2021 until 12/03/2021 End: 02-11-2022 Complete PFT with Pre and Post Bronchodilator Complete PFT with Pre and Post Bronchodilator PFT Routine Shortness of breath 1 Occurrences starting 02/11/2021 until 02/11/2022 [facility] Comment on above: 1 Occurrences starti ng 02/11/2021 until 02/11/2022 End: 02-11-2022 Covid-19/Influenza Order Algorithm : COVID-19 Lab Test Only (OP in UTM) Covid-19/Influenza Order Algorithm : COVID-19 Lab Test Only (OP in UTM) Microbiology Routine Encounter for preprocedure screening laboratory testing for COVID-19 1 Occurrences starting 02/11/2021 until 02/11/2022 [facility] Comment on above: 1 Occurrences starti ng 02/11/2021 until 02/11/2022 End: 08-11-2024 EEG awake and asleep EEG awake and asleep Neurology Routine Seizure disorder (HCC) 1 Occurrences starting 08/11/2024 until 08/11/2024 [employer] Comment on above: 1 Occurrences starti ng 08/11/2024 until 08/11/2024 EKG 12 lead EKG 12 lead ECG Routine Left-sided chest pain Chest pain, unspecified type 08/06/2024 9:17 AM EST [employer] Patient Education [employer] Work Phone: Patient referral Yumiko Akers [facility] Work Phone: [employer] STA T 12/25/2017 3:57 AM EDT [facility] End: 06-17-2022 Surgical Pathology Exam [facility] Work Phone: Comment on above: 1 Occurrences starti ng 06/17/2022 until 06/17/2022, 1 completed Troponin I.cardiac [Mass/volume] in Serum or Plasma Troponin I Lab Timed 07/16/2021 11:32 PM EDT [facility] Work Phone: [employer]rine [employer] STAT 12/25/2017 4:59 AM EDT [facility] XR Chest PA and Lateral XR Chest PA and lat Imaging BEA 09/02/2021 3:36 PM EST [facility] Work Phone: Immunizations Immunization Date Immunization Notes Care Provider Fa piercety 10-19-2022 tetanus toxoid, redu raul diphtheria toxoid, and acellular pertussis vaccine, adsorbed Alexei Olewiler DO Work Phone: [employer] 01-04-2021 COVID-19, PFIZER PUR PLE top, DILUTE for use, (age 12 y+), 30mcg/0.3mL Alexei Olewiler DO Work Phone: [employer] 09-06-2004 hepatitis B vaccine, pediatric or pediatric/adolescent dosage Alexei Olewiler DO Work Phone: [employer] 07-25-2004 hepatitis B vaccine, pediatric or pediatric/adolescent dosage Alexei Olewiler DO Work Phone: [employer] Payers Date Payer Category Payer Medicaid [id number] 2021 Medicaid [id number] 2017 Unknown [id number] 2015 Medicaid [id number] 1986 Unknown [id number] 1986 Unknown [id number] 2.16. [id number] 1986 Unknown [id number] 2.16. [id number] 1986 Unknown [id number] 2.16. [id number] 1986 Unknown [id number] 2.16. [id number] 1986 Unknown [id number] 2.16. [id number] 1985 Unknown [id number] 2.16. 840.1.745902.3.579.2.297 1985 Unknown [id number] 2.16. 840.1.825996.3.579.2.297 1985 Unknown [id number] 2.16. 840.1.915101.3.579.2.297 1986 Unknown [id number] 2.16. 840.1.128940.3.579.2.297 1986 Unknown [id number] 2.16. 840.1.681249.3.579.2.297 1986 Unknown [id number] 2.16. 840.1.328926.3.579.2.297 1986 Unknown [id number] 2.16. 840.1.570046.3.579.2.297 1986 Unknown [id number] 2.16. 840.1.888308.3.579.2.297 1986 Unknown [id number] 2.16. 840.1.590412.3.579.2.297 1986 Unknown [id number] 2.16. 840.1.376139.3.579.2.297 1986 Unknown [id number] 2.16. 840.1.251917.3.579.2.297 1986 Unknown [id number] 2.16. 840.1.257081.3.579.2.297 1986 Unknown [id number] 2.16. 840.1.327505.3.579.2.297 1986 Unknown [id number] 2.16. 840.1.887960.3.579.2.297 1986 Unknown [id number] 2.16. 840.1.832374.3.579.2.297 1986 Unknown [id number] 2.16.8 40.1.125149.3.579.2.173 1986 Unknown [id number] 2.16.8 40.1.846074.3.579.2.174 1986 Unknown [id number] 2.16.8 40.1.658969.3.579.2.174 1986 Unknown [id number] 2.16.8 40.1.992067.3.579.2.174 1986 Unknown [id number] 2.16.8 40.1.369627.3.579.2.174 1986 Unknown [id number] 2.16.8 40.1.817012.3.579.2.174 1959 Unknown [id number] Unknown xxxxxxxxx 2.16. 840.1.325833.3.249.13 Unknown [id number] 2.16.8 40.1.518917.3.579.2.478 Unknown [id number] 2.16. 840.1.161304.3.579.2.579 Unknown [id number] 2.16. 840.1.960942.3.579.2.579 Unknown [id number] 2.16. 840.1.821002.3.579.2.579 Unknown [id number] 2.16. 840.1.402223.3.579.2.579 Unknown [id number] 2.16. 840.1.708046.3.579.2.579 Unknown [id number] 2.16. 840.1.533174.3.579.2.579 Unknown [id number] 2.16. 840.1.731076.3.579.2.579 Unknown [id number] 2.16. 840.1.658150.3.579.2.579 Social History Date Type Detail Facility Start: 12-25-2017 End: 10-22-2021 Tobacco smoking status TXIS Current every day smoker [facility] Start: 09-24-1998 End: 09-24-2019 History of tobacco use Cigarette Smoker [facility] Start: 12-25-2017 End: 08-06-2024 Cigarettes smoked current (pack per day) - Reported [facility] Start: 1985 Sex Assigned At Not on file O [facility] Start: 02-11-2021 End: 08-06-2024 Tobacco use and exposure Never used [facility] Start: 02-11-2021 End: 08-06-2024 Alcohol intake Ex-drinker (finding) [facility] Exposure to SARS-CoV -2 (event) Not sure [facility] Start: 02-15-2021 Tobacco Comment slowly weaning down [facility] Exposure to SARS-CoV -2 (event) Unable to assess [facility] History of tobacco use [facility] Start: 1985 Sex Assigned At Male T [facility] Start: 08-06-2024 Gender Identity unknown [facility] Work Phone: Start: 03-21-2023 Tobacco smoking stat [facility] Unknown if ever smoked [facility] Start: 03-21-2023 N [facility] Work Phone: Start: 08-06-2024 Tobacco smoking stat [facility] Ex-smoker [employer] Start: 09-24-1998 End: 09-24-2019 History of tobacco use Current smoker [employer] How hard is it for y ou to pay for the very basics like food, housing, medical care, and heating Not hard at all [employer] (I/We) worried wheth er (my/our) food would run out before (I/we) got money to buy more. Never true [employer] At any time in the p ast 12 months, were you homeless or living in alf [including now]? No [employer] Goals Date Patient Goal Desired Activity /State Clinical Notes 02-11-2021 to 08-11-2024 Sissy Fuentes - 08/11/2024 10:30 AM Jenna Alaniz RCP - 08/06/2024 9:30 AM Elizabeth Gipson LPN - 12/03/2021 3:21 PM Antoni Whitehead MD - 12/03/2021 2:48 PM EST Note Date & Type Note Facility 08-11-2024 History of Present illness Narrative Patient arrived for EEG. Instructed on procedure and benefits of study. documented in this encounter [facility] 08-06-2024 History of Present illness Narrative The patient was educated on the use of a holter monitor. The patient's comprehension was high. The patient was able to verbalize recall. The patient was instructed on how and when to return the monitor. documented in this encounter [facility] 03-21-2023 CRP Ql [facility] C-Reactive Protein March 21, 2023 10:36am < 3.00 < 3.00 CRP is useful for the detection and evaluation ofinfection, tissue injury and inflammatory disorders.For cardiac risk assessment order HsCRP. Comment on above: CRP is useful for th e detection and evaluation ofinfection, tissue injury and inflammatory disorders.For cardiac risk assessment order HsCRP. 12-03-2021 Emergency department Note Discharge instructions and medications explained to patient by this NURSE EMERGENCY, patient verbalized understanding of same. Patient denies any further questions or concerns, escorted to lobby by nursing staff. ED Diagnosis and Summary 1. Epididymitis, left 2. Epididymal cyst ED Summary Assessment: 36 y.o. male who was seen and evaluated for testicular pain. Impression: 36 y.o. with epididymal cyst with likely epididymitis ED Course: Stable. Plan for symptomatic treatment and empiric antibiotic treatment. Careful return to ED and follow-up instructions given. Plan for urology follow-up DDx: Epididymitis versus orchitis versus torsion versus mass Pertinent Results: Labs: Labs Reviewed GC & CHLAMYDIA AMPLIFIED PROBE CBC WITH DIFFERENTIAL URINALYSIS WITH REFLEX CULTURE COMPREHENSIVE METABOLIC PANEL GLOMERULAR FILTRATION RATE Imaging: US Testicular Torsion Study Final Result Sonographic appearance of both testicles within normal limit with color flow demonstrated. Both epididymis symmetric in size without increased color flow. Tiny 7 mm right epididymal cyst. Tiny 6 mm left epididymal cyst which by report of the cook chief is in the patient's area of palpable abnormality. Correlate clinically. Trace left hydrocele. Dispo: dc Pertinent chart review performed including recent visits, laboratory testing, procedures, and imaging if applicable. Nursing documentation of PMHx, Surg Hx, FHx, Soc Hx and medications reviewed and agree except as noted in the body of this note. Some or all of this note was created using voice recognition software. Efforts were made to proofread but errors in grammar, syntax, punctuation as well as transcriptional errors may persist. History Chief Complaint Patient presents with Testicle Pain Aching mild to moderate nonradiating left testicular pain gradual onset over the last 1 week. Patient noted tender area of swelling to left testicle in the shower today. Patient denies any other GI or symptoms. No other exacerbating alleviating factors or associated symptoms. Patient states he is monogamous with his HPI Review of Systems Constitutional: Negative. Gastrointestinal: Negative. Genitourinary: Negative. Physical Exam ED Triage Vitals [12/03/21 1338] BP 133/75 Heart Rate 72 Resp 18 Temp 97.1 F (36.2 C) Temp Source FOREHEAD SpO2 96 % Weight 175 lb (79.4 kg) Height 5' 9 (1.753 m) BMI (Calculated) 25.83 Physical Exam Vitals and nursing note reviewed. Constitutional: Appearance: Normal appearance. Eyes: General: Right eye: No discharge. Left eye: No discharge. Abdominal: General: Abdomen is flat. Bowel sounds are normal. Genitourinary: Comments: Tenderness noted to left testicle at epididymis. Normal lie. No hernia. Musculoskeletal: General: No swelling. Normal range of motion. Neurological: General: No focal deficit present. Mental Status: He is alert and oriented to person, place, and time. Psychiatric: Mood and Affect: Mood normal. Thought Content: Thought content normal. ED Course Procedures Medical Decision Making Antoni Ruff MD 12/03/21 1450 Pt has specimen cup and is aware of need of urine Pt to er with left side groin pain with testicle swelling and knot to that area. Pt had injury to that site about a month ago. Pt denies dysuria. Pt alert and oriented x 4 Skin pwd documented in this encounter [facility] 09-02-2021 Emergency department Note Pt stated I'm is leaving the dr was rude to him and he's not staying . Pt states 3 weeks with cough, and diarrhea for two days Reports cough and nasal congestion Pt appears comfortable Pt reports vomiting Skin warm and dry No distress noted documented in this encounter [facility] 07-17-2021 Emergency department Note Discharge paperwork and work slip provided - pt verbalizes understanding of same. Pt ambulates to lobby with steady gait, respers easy and unlabored, NAD Manpreet FINE PATCHER at bedside Pt arrives to ed with c/o shortness of breath onset yesterday. Pt denies fever at home, resp reg/easy, speaking in full sentences without diff. documented in this encounter [facility] 03-14-2021 History of Present illness Narrative [facility] [facility] [address] [facility] [address] Name: Kishor Magaña Age: 35 y.o. : 1985 Today's date: 03/15/21 Outpatient Pulmonary Follow-up Note CC: Asthma Kishor Magaña is a 35 y.o. male who presents to Pulmonary clinic for follow up of asthma. He was last seen on 02/11/2021. HPI: Kishor Magaña is a current smoker with 21 pack years who has cut down to 1/2 packs per day. He also previously was vaping. He has a past medical history of shortness of breath and anxiety. He is currently taking Flovent and albuterol. He uses albuterol occasionally. He completed a PFT on 03/03/2021 that revealed mild asthma. Today his main complaint is a migraine headache that he has had for 4 days. At his last visit I referred him to neurology due to his reports of spacing out . He saw Dr. Coon on 03/07/2021 and a EEG and MRI were ordered. He has not yet had these tests. He also followed up with his PCP and an echocardiogram was ordered, which is scheduled for 03/16/2021. He continues to report intermittent shortness of breath, chest tightness, and lightheadedness. He denies chest pain, LE edema, or palpitations. He denies congestion, fever, chills, rash, or sore throat. He denies sputum production. He has not been to the hospital or ED for breathing related issues since our last encounter. Review of Systems Constitutional: Positive for fatigue. Negative for chills and fever. HENT: Negative for congestion, postnasal drip, sinus pressure and sinus pain. Eyes: Negative. Respiratory: Positive for cough, chest tightness, shortness of breath and wheezing. Cardiovascular: Negative for chest pain, palpitations and leg swelling. Gastrointestinal: Positive for diarrhea. Negative for abdominal pain and constipation. Musculoskeletal: Positive for arthralgias (Left shoulder pain). Skin: Negative. Allergic/Immunologic: Positive for environmental allergies. Neurological: Positive for light-headedness and headaches (migraines). Negative for tremors. Hematological: Negative. Psychiatric/Behavioral: Positive for sleep disturbance (Insomnia). Negative for confusion, decreased concentration, dysphoric mood, hallucinations, self-injury and suicidal ideas. The patient is not hyperactive. All other systems reviewed and are negative. Tobacco & Smokeless: Tobacco Use Smoking status: Current Every Day Smoker Packs/day: 0.50 Years: 21.00 Pack years: 10.5 Types: Cigarettes Smokeless tobacco: Never Used Tobacco comment: slowly weaning down Ready to quit: No Counseling given: Yes Comment: slowly weaning down Objective: Outpatient Medications as of 03/14/2021 Medication Sig ibuprofen (ADVIL,MOTRIN) 600 MG tablet Take 600 mg by mouth every 6 (six) hours as needed . miscellaneous medical supply (Blood Pressure Cuff) Misc 2 application by Miscellaneous route 2 (two) times a day Monitor and record BP . omeprazole (PRILOSEC) 20 MG capsule Take 20 mg by mouth daily. topiramate (TOPAMAX) 25 MG tablet Take 1 (one) tablet (25 mg total) by mouth 2 (two) times a day . [DISCONTINUED] albuterol 90 mcg/actuation inhaler Inhale 2 puffs every 4 (four) hours as needed . [DISCONTINUED] fluticasone propionate (FLOVENT HFA) 44 mcg/actuation inhaler Inhale 2 (two) puffs 2 (two) times a day Rinse mouth after each use . (Patient not taking: Reported on 03/14/2021 .) Allergies Allergen Reactions Bupropion Risperidone Wellbutrin [Bupropion Hcl] Zoloft [Sertraline] BP 116/78 (BP Location: Right arm) Pulse 85 Temp 98.9 F (37.2 C) (Temporal) Wt 77.1 kg (170 lb) SpO2 94% Comment: ROOM AIR BMI 25.10 kg/m Physical Exam: Vitals reviewed Gen: Alert and oriented x 3, In no apparent distress HEENT: Head: Normocephalic, no lesions, without obvious abnormality. Eye: Normal external eye, conjunctiva, lids cornea, TONY. Pharynx: Dental Hygiene adequate. Normal buccal mucosa. Normal pharynx. Neck: nontender, full range of motion, no mass, no focal lymphadenopathy Cardio: regular rate and rhythm, no murmur, brisk capillary refill Resp: clear to auscultation bilaterally, no wheezes or crackles, no tachypnea or accessory muscle use Abd: soft, nontender MSK: Moves all four extremities spontaneously. Neuro: Grossly normal without focal findings Skin: no rashes, no jaundice PFT Results PFT Pre-bronchodilator 03/03/21 1352 FVC 5.00 (% predicted) 96 FEV1 3.19 (% predicted) 75 FEV1/FVC 64 VC 5.00 (% predicted) 96 PFT Post-bronchodilator 03/03/21 1352 FVC 5.33 (% predicted) 102 (% change) 7 FEV1 3.95 (% predicted) 93 (% change) 24 FEV1/FVC 74 PFT Lung Volumes 03/03/21 1352 TLC 6.63 (% predicted) 97 RV 1.63 (% predicted) 87 PFT Diffusion 03/03/21 1352 DLCO 22.5 (% predicted) 79 DLCO/VA 3.49 (% predicted) 81 Interpretation: I have personally reviewed the PFT test results and I agree with the interpretation by Dr. Guo. ATS standards achieved Spirometry and lung volumes reveal mild obstruction with profound bronchodilator responsiveness. There is no evidence of air trapping. Diffusing capacity is mildly reduced. Flow volume loop concerning for variable extrathoracic obstruction. Assessment and Plan: Kishor was seen today for follow-up. Diagnoses and all orders for this visit: Mild intermittent asthma without complication - albuterol 90 mcg/actuation inhaler; Inhale 2 (two) puffs every 4 (four) hours as needed . - budesonide-formoteroL (SYMBICORT) 160-4.5 mcg/actuation inhaler; Inhale 2 (two) puffs 2 (two) times a day . - inhalational spacing device inhaler; Use as instructed . SOB (shortness of breath) Tobacco dependence with current use I have discontinued his Flovent inhaler, and ordered Symbicort for ICS/LABA control. He will continue to use his albuterol for shortness of breath. We have provided a spacer for him today. He has again been advised to quit smoking; we discussed the health implications of continued tobacco use; we discussed methods and skills for smoking cessation as well as available prescription medications that can have been proven to aid in cessation; he was provided with resources to aid in cessation and is advised to set a quit date should he decide to ultimately quit smoking; at this time he is still attempting to cut back on his smoking without NRT and would like to see if he can stop without it; he will follow up with me at next visit continue to discuss plan to quit; I spent 4 minutes spent discussing the above with him. RTC in 3 months documented in this encounter [facility] 02-11-2021 History of Present illness Narrative [facility] [address] [place] [address] Name: Kishor Magaña Age: 35 y.o. : 1985 Today's date: 02/11/21 Outpatient Pulmonary Consult Note CC: shortness of breath Kishor Magaña is a 35 y.o. male who presents to Pulmonary clinic for evaluation of shortness of breath. He was referred by Anali Hernandez CNP. HPI: Kishor Magaña is a current smoker with 21 pack years who has cut down to 1/2 packs per day. He also previously was vaping. He has a past medical history of shortness of breath and anxiety. He is currently taking Flovent and albuterol. He uses albuterol about every 4 hours. He was referred to our office for continued complaints of shortness of breath requiring several ED visits over the past 2 months. He has been worked-up in the ED with no significant findings. He states this started after he received his first Pfizer COVID-19 vaccine. He has been told repeatedly that his symptoms are anxiety related. He states he as frequent, intermittent shortness of breath, chest tightness, and lightheadedness. He has a dry cough. Most recently, he states that he is having short periods of spacing out in which he will be talking to someone and just goes blank and does not respond verbally. He does have migraine headaches that started about 4 months ago. 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 His episodes last 20-30 seconds. He reports that he donated plasma when he was 20, and was told he cannot donate anymore due to having a grand mal seizure during the donation. He denies any symptoms of a post-ictal period following these episodes. He states one was witness during his ED encounter on 02/03/2021, however I did not see documentation of this. He has a chest x-ray report from that encounter that states his lung carrillo were clear. He was prescribed a Flovent inhaler, and states that it does help with his shortness of breath, and he can notice more shortness of breath if he forgets to take it. He states he does not notice any improvement with the albuterol inhaler. He endorses intermittent wheezing and chest tightness. He denies chest pain, LE edema, or palpitations. He denies congestion, fever, chills, rash, or sore throat. He denies sputum production. He does have a history of childhood trauma and associated mental illness, however he states that he does not currently take any medications and denies all symptoms of depression or anxiety. Past Medical History: Diagnosis Date Patient denies medical problems Past Surgical History: Procedure Laterality Date denies History reviewed. No pertinent family history. Social History Socioeconomic History Marital status: Spouse name: Not on file Number of children: Not on file Years of education: Not on file Highest education level: Not on file Occupational History Not on file Tobacco Use Smoking status: Current Every Day Smoker Packs/day: 0.50 Years: 21.00 Pack years: 10.50 Types: Cigarettes Smokeless tobacco: Never Used Vaping Use Vaping Use: Never used Substance and Sexual Activity Alcohol use: Not Currently Drug use: No Sexual activity: Yes Partners: Female control/protection: None Other Topics Concern Not on file Social History Narrative Not on file Social Determinants of Health Financial Resource Strain: Difficulty of Paying Living Expenses: Food Insecurity: Worried About Running Out of Food in the Last Year: Ran Out of Food in the Last Year: Transportation Needs: Lack of Transportation (Medical): Lack of Transportation (Non-Medical): Physical Activity: Days of Exercise per Week: Minutes of Exercise per Session: Stress: Feeling of Stress : Social Connections: Frequency of Communication with Friends and Family: Frequency of Social Gatherings with Friends and Family: Attends Druze Services: Active Member of Clubs or Organizations: Attends Club or Organization Meetings: Marital Status: Ready to quit: Not Answered Counseling given: Not Answered 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 Negative for chills and fever. HENT: Negative for congestion, postnasal drip, sinus pressure and sinus pain. Eyes: Negative. Respiratory: Positive for cough, chest tightness, shortness of breath and wheezing. Cardiovascular: Negative for chest pain, palpitations and leg swelling. Gastrointestinal: Positive for diarrhea. Negative for abdominal pain and constipation. Musculoskeletal: Positive for arthralgias (Left shoulder pain). Skin: Negative. Allergic/Immunologic: Positive for environmental allergies. Neurological: Positive for light-headedness and headaches (migraines). Negative for tremors. Hematological: Negative. Psychiatric/Behavioral: Positive for sleep disturbance (Insomnia). Negative for confusion, decreased concentration, dysphoric mood, hallucinations, self-injury and suicidal ideas. The patient is not hyperactive. All other systems reviewed and are negative. Objective: Outpatient Medications as of 02/11/2021 Medication Sig albuterol 90 mcg/actuation inhaler Inhale 2 puffs every 4 (four) hours as needed . fluticasone propionate (FLOVENT HFA) 44 mcg/actuation inhaler Inhale 2 (two) puffs 2 (two) times a day Rinse mouth after each use . ibuprofen (ADVIL,MOTRIN) 600 MG tablet Take 600 mg by mouth every 6 (six) hours as needed . omeprazole (PRILOSEC) 20 MG capsule Take 20 mg by mouth daily. ondansetron (Zofran) 4 MG tablet Take 1 (one) tablet (4 mg total) by mouth every 8 (eight) hours as needed for nausea . Allergies Allergen Reactions Bupropion Risperidone Wellbutrin [Bupropion Hcl] Zoloft [Sertraline] BP 120/80 (BP Location: Right arm) Pulse 94 Temp 98.9 F (37.2 C) (Temporal) Wt 77.5 kg (170 lb 12.8 oz) SpO2 96% BMI 25.22 kg/m Physical Exam: Vitals reviewed Gen: Alert and oriented x 3, In no apparent distress HEENT: Head: Normocephalic, no lesions, without obvious abnormality. Eye: Normal external eye, conjunctiva, lids cornea, TONY. Pharynx: Dental Hygiene adequate. Normal buccal mucosa. Normal pharynx. Neck: nontender, full range of motion, no mass, no focal lymphadenopathy Cardio: regular rate and rhythm, no murmur, brisk capillary refill Resp: clear to auscultation bilaterally, no wheezes or crackles, no tachypnea or accessory muscle use, pectus carinatum Abd: soft, nontender MSK: Moves all four extremities spontaneously. Neuro: Grossly normal without focal findings Skin: no rashes, no jaundice Assessment and Plan: Kishor was seen today for consult. Diagnoses and all orders for this visit: Episodic lightheadedness - miscellaneous medical supply (Blood Pressure Cuff) Misc; 2 application by Miscellaneous route 2 (two) times a day Monitor and record BP . - Ambulatory referral to Neurology; Future Shortness of breath - Ambulatory referral to Pulmonology - Complete PFT with Pre and Post Bronchodilator; Future Encounter for preprocedure screening laboratory testing for COVID-19 - Covid-19/Influenza Order Algorithm : COVID-19 Lab Test Only (OP in UTM); Future Tobacco Dependence He will continue using his Flovent and albuterol as needed. I have ordered PFT's to assess for any obstructive or restrictive processes contributing to his shortness of breath. I have ordered a blood pressure cuff for home monitoring and instructed him to record his BP twice a day at different times of the day, and especially if he has an episode as described above. I have referred him to neurology for his reports of weakness, spacing out , lightheadedness, now onset migraines, and previous seizure. We discussed a referral to cardiology, however I will evaluate him for pulmonary disease before placing this referral. He has been advised to quit smoking; we discussed the health implications of continued tobacco use; we discussed methods and skills for smoking cessation as well as available prescription medications that can have been proven to aid in cessation; he was provided with resources to aid in cessation and is advised to set a quit date should he decide to ultimately quit smoking; at this time he is cutting back on his smoking without NRT and would like to see if he can stop without it; he will follow up with me at next visit continue to discuss plan to quit; I spent 8 minutes spent discussing the above with him. RTC in 4 weeks [facility] – [facility] Evaluation note Diagnosis Episodic lightheadedness- Primary Shortness of breath Encounter for preprocedure screening laboratory testing for COVID-19 Tobacco Dependence Tobacco use disorder [facility]* Diagnosis Dyspnea, unspecified type Palpitation Palpitations documented [facility]* Diagnosis Mild intermittent asthma without complication- Primary SOB (shortness of breath) Shortness of breath Tobacco dependence with current use documented [facility]* Diagnosis Dyspnea, unspecified type [facility]* Diagnosis Shortness of breath- Primary documented in this encounter [facility] note* Diagnosis Acute bronchitis, unspecified organism- Primary documented in this encounter [facility] note* Diagnosis Epididymitis, left- Primary Orchitis and epididymitis, unspecified Epididymal cyst Other specified disorder of male genital organs documented in this encounter [facility] note* Diagnosis Encounter for vasectomy Sterilization documented in this encounter [facility] noteNo assessment information available [facility] Work Phone: Evaluation note* Diagnosis Left-sided chest pain Chest pain, unspecified type [facility]* Diagnosis Left-sided chest pain Chest pain, unspecified type [facility]* Diagnosis Left-sided chest pain Chest pain, unspecified type [facility]* Diagnosis Seizure disorder (HCC) Unspecified epilepsy without mention of intractable epilepsy documented in this encounter [facility] note* Diagnosis Left-sided chest pain Chest pain, unspecified type [facility]* Diagnosis Upper respiratory tract infection, unspecified type- Primary Acute viral conjunctivitis of right [facility] Instructions* Virginia Duncan APRN-CNP, ACHPN - 07/17/2021 If you develop worsening of your symptoms, difficulty breathing, numbness, tingling, weakness, changes in your vision or any other urgent concerns, please call 911 or return to the Emergency Department immediately. * Attachments The following attachments cannot be sent through Care Everywhere. * SOB (Shortness of Breath) (Mal[place]ian Niuean) [facility] Attachments The following attachments cannot be sent through Care Everywhere. * Bronchitis ([place]ian Niuean) [facility] Attachments The following attachments cannot be sent through Care Everywhere. * Epididymitis and Orchitis ([place]ian Niuean) [facility]* Attachments The following attachments cannot be sent through Care Everywhere. * Conjunctivitis (Niuean) * URI (Upper Respiratory Infection): Viral (Niuean) [facility] Consultation (Routine) - Open Specialty Diagnoses / Procedures Referred By Contac t Referred To Contact Family Medicine Diagnoses Shortness of breath Virginia Duncan APRN-CNP, ACHPN [address] [place] [address] [facility] [address] [place] [address] Referral ID Status Reason Start Date Expiration Date Visits Re quested Visits Authorized [id number] Open 07/17/2021 08/17/2022 1 1 [facility] for referral (narrative)* Consultation (Routine) - Open Specialty Diagnoses / Procedures Referred By Contac t Referred To Contact Family Medicine Diagnoses Acute bronchitis, unspecified organism Rubi Vale MD [address] [id number] [facility] [address] [place] [address] Referral ID Status Reason Start Date Expiration Date Visits Re quested Visits Authorized [id number] Open 09/02/2021 10/03/2022 1 1 [facility] for referral (narrative)* Consultation (Routine) - Open Specialty Diagnoses / Procedures Referred By Aury erickson Referred To Contact Urology Diagnoses Epididymitis, left Epididymal cyst Antoni Ruff MD [address] [place] [address] [facility] [address] [place] [address] Referral ID Status Reason Start Date Expiration Date Visits Re quested Visits Authorized [id number] Open 12/03/2021 01/03/2023 1 1 [email or web address] Discharge Instructions * Alexus Arriaza MD - 12/25/2017 Abdominal Pain: Care Instructions Your Care Instructions Abdominal pain has many possible causes. Some aren't serious and get better on their own in a few days. Others need more testing and treatment. If your pain continues or gets worse, you need to be rechecked and may need more tests to find out what is wrong. You may need surgery to correct the problem. Don't ignore new symptoms, such as fever, nausea and vomiting, urination problems, pain that gets worse, and dizziness. These may be signs of a more serious problem. Your doctor may have recommended a follow-up visit in the next 8 to 12 hours. If you are not getting better, you may need more tests or treatment. The doctor has checked you carefully, but problems can develop later. If you notice any problems ornew symptoms, get medical treatment right away. Follow-up care is a heath part of your treatment and safety. Be sure to make and go to all appointments, and call your doctor if you are having problems. It's also a good idea to know your test resultsand keep a list of the medicines you take. How can you care for yourself at home? Rest until you feel better. To prevent dehydration, drink plenty of fluids, enough so that your urine is light yellow or clear like water. Choose water and other caffeine-free clear liquids until you feel better. If you have kidney, heart, or liver disease and have to limit fluids, talk with your doctor before you increase the amount of fluids you drink. If your stomach is upset, eat mild foods, such as rice, dry toast or crackers, bananas, and applesauce. Try eating several small meals instead of two or three large ones. Wait until 48 hours after all symptoms have gone away before you have spicy foods, alcohol, and drinks that contain caffeine. Do not eat foods that are high in fat. Avoid anti-inflammatory medicines such as aspirin, ibuprofen (Advil, Motrin), and naproxen (Aleve).These can cause stomach upset. Talk to your doctor if you take daily aspirin for another health problem. When should you call for help? Call 911 anytime you think you may need emergency care. For example, call if: You passed out (lost consciousness). You pass maroon or very bloody stools. You vomit blood or what looks like coffee grounds. You have new, severe belly pain. Call your doctor now or seek immediate medical care if: Your pain gets worse, especially if it becomes focused in one area of your belly. You have a new or higher fever. Your stools are black and look like tar, or they have streaks of blood. You have unexpected vaginal bleeding. You have symptoms of a urinary tract infection. These may include: Pain when you urinate. Urinating more often than usual. Blood in your urine. You are dizzy or lightheaded, or you feel like you may faint. Watch closely for changes in your health, and be sure to contact your doctor if: You are not getting better after 1 day (24 hours). Where can you learn more? Log into your personal health record on https://Ipropertyzhart.AddMyBest.Homuork and enter E907 in the Education box to learn more about Abdominal Pain: Care Instructions. Current as of: February 18, 2016 Content Version: 11.2 1915-3750 [employer]. Care instructions adapted under license by your healthcare professional. If you have questions about a medical condition or this instruction, always ask your healthcare professional. [employer] disclaims any warranty or liability for your use of this information. in this encounter* Margie Porras MD - 03/19/2018 Formatting of this note may be different from the original. Paronychia: Care Instructions Your Care Instructions Paronychia (say vqij-so-VY-elvi-uh ) is an infection of the skin around a fingernail or toenail. Ithappens when germs enter through a break in the skin. The doctor may have made a small cut in the infected area to drain the pus. Most cases of paronychia improve in a few days. But watch your symptoms and follow your doctor's advice. Though rare, a mild case can turn into something more serious and infect your entire finger ortoe. Also, it is possible for an infection to return. Follow-up care is a heath part of your treatment and safety. Be sure to make and go to all appointments, and call your doctor if you are having problems. It's also a good idea to know your test resultsand keep a list of the medicines you take. How can you care for yourself at home? If your doctor told you how to care for your infected nail, follow the doctor's instructions. If you did not get instructions, follow this general advice: Wash the area with clean water 2 times a day. Don't use hydrogen peroxide or alcohol, which can slow healing. You may cover the area with a thin layer of petroleum jelly, such as Vaseline, and a nonstick bandage. Apply more petroleum jelly and replace the bandage as needed. If your doctor prescribed antibiotics, take them as directed. Do not stop taking them just because you feel better. You need to take the full course of antibiotics. Take an scru-qsh-iicibze pain medicine, such as acetaminophen (Tylenol), ibuprofen (Advil, Motrin),or naproxen (Aleve). Read and follow all instructions on the label. Do not take two or more pain medicines at the same time unless the doctor told you to. Many pain medicines have acetaminophen, which is Tylenol. Too much acetaminophen (Tylenol) can be harmful. Prop up the toe or finger so that it is higher than the level of your heart. This will help with pain and swelling. Apply heat. Put a warm water bottle, heating pad set on low, or warm cloth on your finger or toe. Do not go to sleep with a heating pad on your skin. Soak the area in warm water twice a day for 15 minutes each time. After soaking, dry the area well and apply a thin layer of petroleum jelly, such as Vaseline. Put on a new bandage. When should you call for help? Call your doctor now or seek immediate medical care if: ? You have signs of new or worsening infection, such as: Increased pain, swelling, warmth, or redness. Red streaks leading from the infected skin. Pus draining from the area. A fever. ?Watch closely for changes in your health, and be sure to contact your doctor if: ? You do not get better as expected. Where can you learn more? Log into your personal health record on https://Sphere ([employer]t.Tengrade and enter C435 in the Education box to learn more about Paronychia: Care Instructions. Current as of: June 28, 2017 Content Version: .[id number] Merc[employer]. Care instructions adapted under license by your healthcare professional. If you have questions about a medical condition or this instruction, always ask your healthcare professional. [employer] disclaims any warranty or liability for your use of this information. in this encounter* Discharge Instr - Meds - Gabe Alanis PA-C - 03/28/2018 1:04 AM EDT Please use tylenol or ibuprofen over the counter as directed for pain. Please continue taking your Keflex antibiotic as directed until it is gone. * Gabe Alanis PA-C - 03/28/2018 Formatting of this note may be different from the original. Paronychia: Care Instructions Your Care Instructions Paronychia (say wnva-xt-ZL-elvi-uh ) is an infection of the skin around a fingernail or toenail. Ithappens when germs enter through a break in the skin. The doctor may have made a small cut in the infected area to drain the pus. Most cases of paronychia improve in a few days. But watch your symptoms and follow your doctor's advice. Though rare, a mild case can turn into something more serious and infect your entire finger ortoe. Also, it is possible for an infection to return. Follow-up care is a ehath part of your treatment and safety. Be sure to make and go to all appointments, and call your doctor if you are having problems. It's also a good idea to know your test resultsand keep a list of the medicines you take. How can you care for yourself at home? If your doctor told you how to care for your infected nail, follow the doctor's instructions. If you did not get instructions, follow this general advice: Wash the area with clean water 2 times a day. Don't use hydrogen peroxide or alcohol, which can slow healing. You may cover the area with a thin layer of petroleum jelly, such as Vaseline, and a nonstick bandage. Apply more petroleum jelly and replace the bandage as needed. If your doctor prescribed antibiotics, take them as directed. Do not stop taking them just because you feel better. You need to take the full course of antibiotics. Take an yrvd-yoo-njrwahy pain medicine, such as acetaminophen (Tylenol), ibuprofen (Advil, Motrin),or naproxen (Aleve). Read and follow all instructions on the label. Do not take two or more pain medicines at the same time unless the doctor told you to. Many pain medicines have acetaminophen, which is Tylenol. Too much acetaminophen (Tylenol) can be harmful. Prop up the toe or finger so that it is higher than the level of your heart. This will help with pain and swelling. Apply heat. Put a warm water bottle, heating pad set on low, or warm cloth on your finger or toe. Do not go to sleep with a heating pad on your skin. Soak the area in warm water twice a day for 15 minutes each time. After soaking, dry the area well and apply a thin layer of petroleum jelly, such as Vaseline. Put on a new bandage. When should you call for help? Call your doctor now or seek immediate medical care if: ? You have signs of new or worsening infection, such as: Increased pain, swelling, warmth, or redness. Red streaks leading from the infected skin. Pus draining from the area. A fever. ?Watch closely for changes in your health, and be sure to contact your doctor if: ? You do not get better as expected. Where can you learn more? Log into your personal health record on https://Sphere ([employer]t.Tengrade and enter C435 in the Education box to learn more about Paronychia: Care Instructions. Current as of: June 28, 2017 Content Version: 11.6 3347-7413 Mercaux. Care instructions adapted under license by your healthcare professional. If you have questions about a medical condition or this instruction, always ask your healthcare professional. [employer] disclaims any warranty or liability for your use of this information. in this encounter* Angelica Bermudez MD - 06/11/2018 Formatting of this note may be different from the original. Bronchitis: Care Instructions Your Care Instructions Bronchitis is inflammation of the bronchial tubes, which carry air to the lungs. The tubes swell and produce mucus, or phlegm. The mucus and inflamed bronchial tubes make you cough. You may have trouble breathing. Most cases of bronchitis are caused by viruses like those that cause colds. Antibiotics usually do not help and they may be harmful. Bronchitis usually develops rapidly and lasts about 2 to 3 weeks in otherwise healthy people. Follow-up care is a heath part of your treatment and safety. Be sure to make and go to all appointments, and call your doctor if you are having problems. It's also a good idea to know your test resultsand keep a list of the medicines you take. How can you care for yourself at home? Take all medicines exactly as prescribed. Call your doctor if you think you are having a problem with your medicine. Get some extra rest. Take an qsgf-lqd-fzuayqj pain medicine, such as acetaminophen (Tylenol), ibuprofen (Advil, Motrin),or naproxen (Aleve) to reduce fever and relieve body aches. Read and follow all instructions on thelabel. Do not take two or more pain medicines at the same time unless the doctor told you to. Many pain medicines have acetaminophen, which is Tylenol. Too much acetaminophen (Tylenol) can be harmful. Take an ztlm-jnq-vjyqrii cough medicine that contains dextromethorphan to help quiet a dry, hackingcough so that you can sleep. Avoid cough medicines that have more than one active ingredient. Read and follow all instructions on the label. Breathe moist air from a humidifier, hot shower, or sink filled with hot water. The heat and moisture will thin mucus so you can cough it out. Do not smoke. Smoking can make bronchitis worse. If you need help quitting, talk to your doctor about stop-smoking programs and medicines. These can increase your chances of quitting for good. When should you call for help? Call 911 anytime you think you may need emergency care. For example, call if: ? You have severe trouble breathing. ?Call your doctor now or seek immediate medical care if: ? You have new or worse trouble breathing. ? You cough up dark brown or bloody mucus (sputum). ? You have a new or higher fever. ? You have a new rash. ?Watch closely for changes in your health, and be sure to contact your doctor if: ? You cough more deeply or more often, especially if you notice more mucus or a change in the colorof your mucus. ? You are not getting better as expected. Where can you learn more? Log into your personal health record on https://[employer].Tengrade and enter H333 in the Education box to learn more about Bronchitis: Care Instructions. Current as of: August 29, 2017 Content Version: 11.20052671-6038 Mercaux. Care instructions adapted under license by your healthcare professional. If you have questions about a medical condition or this instruction, always ask your healthcare professional. [employer] disclaims any warranty or liability for your use of this information. in this encounter Assessments Diagnosis Right upper quadrant abdomin al pain - Primary Non-intractable vomiting wit h nausea, unspecified vomiting type Diagnosis Paronychia of finger of righ t hand - Primary Diagnosis Paronychia of finger of righ t hand - Primary Diagnosis Bronchitis - Primary Bronchitis, not specified as acute or chronic Summary Purpose Family History No Family History Records FoundNo Family History Records FoundNo Family History Records FoundNo Family History Records FoundNo Family History Records FoundNo Family History Records FoundNo Family History Records FoundNo Family History Records FoundNo Family History Records FoundNo Family History Records FoundNo Family History Records FoundNo Family History Records FoundNo Family History Records FoundNo Family History Records Found Advance Directives No Advanced Directives Records FoundDocuments on File Type Date Recorded Patient Auto Leasing Manager Expl anation Advance Directives and Living Will Documents on File Type Date Recorded Patient Auto Leasing Manager Expl anation Advance Directives and Livin g Will 02/18/2021 6:32 AM Documents on File Type Date Recorded Patient Auto Leasing Manager Expl anation Advance Directives and Livin g Will 03/03/2021 1:10 PM Documents on File Type Date Recorded Patient Auto Leasing Manager Expl anation Advance Directives and Livin g Will 03/16/2021 9:55 AM Documents on File Type Date Recorded Patient Auto Leasing Manager Expl anation Advance Directives and Living Will 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 of 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 Furnace 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 Documents on File Type Date Recorded Patient Auto Leasing Manager Expl anation Advance Directives and Living Will Power of Carbon Furnace 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 DNR Documentation Advance Directive Response Recorded Date/ Time Advanced Directive: N March 21, 2 023 10:12am [place] DNR Comfort Care Directives: N March 21, 2023 10:12am Organ Donation Card: Y March 21, 2023 10:12am Healthcare Agents on File Name Relationship Healthcare Agent Relationshi p Communication Jessica Magaña Spouse Primary Decision Maker Healthcare Agents on File Name Relationship Healthcare Agent Relationshi p Communication Jessica Magaña Spouse Primary Decision Maker Healthcare Agents on File Name Relationship Healthcare Agent Relationshi p Communication Jessica Magaña Spouse Primary Decision Maker Healthcare Agents on File Name Relationship Healthcare Agent Relationshi p Communication Jessica Magaña Spouse Primary Decision Maker Healthcare Agents on File Name Relationship Healthcare Agent Relationshi p Communication Jessica Magaña Spouse Primary Decision Maker Healthcare Agents on File Name Relationship Healthcare Agent Relationshi p Communication Jessica Magaña Spouse Primary Decision Maker Reason for Referral Status Reason Specialty Diagnoses / Procedures Re ferred By Contact Referred To Contact Pending Review Neurology Diagnoses Episodic lightheadedness Angelica Obando, BRENDA [address] [place] [id number] Nasreen Coon MD [facility][note 3] [place] [address] Status Reason Specialty Diagnoses / Procedures Referred By Contact Referred To Contact Pending Review Pulmonology Diagnoses Shortness of breath Procedures Complete PFT with Pre and Post Bronchodilator Angelica Obando, BRENDA [address] [place] [id number] Status Reason Specialty Diagnoses / Procedures Referre d By Contact Referred To Contact Closed Cardiology Diagnoses Dyspnea, unspecified type Palpitation Procedures Holter monitor- up to 48 hour Jenna Cox, BUSINESS SERVICES ASSOCIATE [address] [place] [address] [facility] [address] [place] [address] Specialty Diagnoses / Procedures Referred By Contac t Referred To Contact Cardiology Diagnoses Left-sided chest pain Chest pain, unspecified type Procedures EKG 12 lead Alexei Luna DO [address] [place] [address] Referral ID Status Reason Start Date Expiration Date Visits Re quested Visits Authorized [id number] Open 08/06/2024 08/06/2025 1 1 Specialty Diagnoses / Procedures Referred By Contac t Referred To Contact Diagnoses Left-sided chest pain Chest pain, unspecified type Procedures Cardiac holter monitor (1 day-2 day) MI XTRNL MOBILE CV TELEMETRY W/I&REPORT 30 DAYS MI XTRNL PT ACTIVATED ECG REC DWNLD 30 DAYS [place] XTRNL MOBILE CV TELEMETRY W/TECHNICAL SUPPORT Alexei Luna DO [address] [place] [address] Referral ID Status Reason Start Date Expiration Date Visits Re quested Visits Authorized [id number] Closed 08/06/2024 08/06/2025 1 1 Specialty Diagnoses / Procedures Referred By Contac t Referred To Contact Diagnoses Seizure disorder (HCC) Procedures EEG awake and asleep Alexei Luna DO [address] [place] [address] Referral ID Status Reason Start Date Expiration Date Visits Re quested Visits Authorized [id number] Open 08/06/2024 08/06/2025 1 1 Specialty Diagnoses / Procedures Referred By Contac t Referred To Contact Diagnoses Left-sided chest pain Chest pain, unspecified type Procedures Exercise stress test Alexei Luna DO [address] [place] [address] Referral ID Status Reason Start Date Expiration Date Visits Re quested Visits Authorized [id number] Closed 08/18/2024 08/06/2025 1 1 Chief Complaint and Reason for Visit Reason for Visit WEAKNESS FOR 1 MONTH Reason for Visit POSSIBLE HERNIATED D ISC IN BACK HURTS TO LOOK DOWN Additional Source Comments ED Notes - Angelica Powell RN - 12/25/2017 6:09 AM EDTED Attestation Note - Alexus Arriaza MD - 12/25/2017 5:52 AM EDTED Triage Notes - Nikolai Garvey RN - 12/25/2017 3:21 AM EDT Miscellaneous Notes (unrecog nized section and content) Potassium and Naproxen given. Patient pain improving. Patient to FU with his PCP. ED Attestation: I have reviewed the Advanced Practice Provider's ([facility]'s) documention. In addition, I have personally introduced myself to the patient, and have taken his history and performed an examination. I agree with the physical findings, management, clinical impression and disposition. In brief, he is a 32 y.o. male who presents with a chief complaint of Abdominal Pain. After my evaluation, I noticed abdomen is soft, nontender, non-peritoneal, without rebound or guarding. Normal bowel sounds. Regular rate and rhythm. No murmurs rubs or gallops. Lungs clear to auscultation bilaterally. He complains of right chest and upper abdomen pain after vomiting all day on Sunday. He is PERC negative. Chest x-ray, right upper quadrant ultrasound, blood work, and urinalysis are negative for acute abnormality to explain his symptoms. Alexus Arriaza MD ED Attending Physician [facility] Emergency Department (Please note that portions of this note have been completed with a voice recognition software. Efforts were made to correct any errors, but occasionally words are mis-transcribed.) Formatting of this note may be different from the original. [facility] ED Physician Note: NAME: Kishor Magaña 32 y.o. CSN: [id number] PCP: Physician No ED Course / Medical Decision Making: Patient care given over to Dr. Alexus Arriaza at shift change. Please refer to her note for results, medical decision making and disposition Clinical Impression: No diagnosis found. Disposition: Patient is being Discharge to home New Prescriptions No medications on file History: Chief Complaint: Abdominal Pain HPI: He is a 32 y.o. male who presents with a chief complaint of Abdominal Pain. HPI 32-year-old male presents to the ED today with multiple complaints. Patient states his symptoms began Sunday with vomiting and states he was vomiting all day that was nonbilious and nonbloody. Since then he has had some mild lightheadedness and dizziness with standing or changing position quickly. He also notes a pain in the lower right chest and upper abdomen areas. It seems to be worse if he takes a deep breath or presses on the abdomen. Symptoms do not seem to change with eating or drinking. 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 He denies any fever or chills or recent URI symptoms. Denies any vomiting or diarrhea today. Denies any lower leg pain or swelling. No history of blood clots PMHx: Past Medical History: Diagnosis Date Patient denies medical problems PMSx: Past Surgical History: Procedure Laterality Date denies FAM. Hx: History reviewed. No pertinent family history. SOC. Hx: Social History Social History Marital status: Spouse name: N/A Number of children: N/A Years of education: N/A Occupational History Not on file. Social History Main Topics Smoking status: Current Every Day Smoker Packs/day: 1.00 Types: Cigarettes Smokeless tobacco: Never Used Alcohol use Yes Comment: 1-2 times a year Drug use: No Sexual activity: Not on file Other Topics Concern Not on file Social History Narrative No narrative on file MEDs: Previous Medications No medications on file ALL: Allergies Allergen Reactions Risperidone Wellbutrin [Bupropion Hcl] Zoloft [Sertraline] ROS: Review of Systems Constitutional: Negative for activity change, appetite change and fever. HENT: Negative for congestion, ear pain and sore throat. Eyes: Negative for pain and visual disturbance. Respiratory: Negative for cough, shortness of breath and wheezing. Cardiovascular: Positive for chest pain. Gastrointestinal: Positive for abdominal pain and vomiting. Negative for diarrhea and nausea. Endocrine: Negative for cold intolerance and polyuria. Genitourinary: Negative for dysuria and flank pain. Musculoskeletal: Negative for arthralgias and myalgias. Skin: Negative for color change. Allergic/Immunologic: Negative for immunocompromised state. Neurological: Positive for dizziness and light-headedness. Negative for headaches. Hematological: Does not bruise/bleed easily. Psychiatric/Behavioral: Negative for sleep disturbance and suicidal ideas. All other systems reviewed and are negative. Positives and pertinent negatives as per HPI. All other systems were reviewed and are negative. Physical Exam: Patient Vitals for the past 24 hrs: BP Temp Temp src Pulse Resp SpO2 Height Weight 12/25/17 0320 129/80 97.6 F (36.4 C ) Oral 73 16 96 % 5' 9 74.4 kg (164 lb) Physical Exam Constitutional: He is oriented to person, place, and time. He appears well- developed. Non-toxic appearance. No distress. HENT: Head: Normocephalic and atraumatic. Poor dental hygiene, missing multiple upper teeth. Eyes: Conjunctivae and lids are normal. Pupils are equal, round, and reactive to light. Cardiovascular: Normal rate, regular rhythm and normal pulses. Pulmonary/Chest: Effort normal and breath sounds normal. No respiratory distress. He has no decreased breath sounds. He has no wheezes. He has no rhonchi. Abdominal: Soft. Normal appearance and bowel sounds are normal. There is no hepatosplenomegaly or hepatomegaly. There is tenderness in the right upper quadrant. There is no tenderness at McBurney's point and negative Hernandez's sign. No hernia. Musculoskeletal: No leg pain/swelling or redness Neurological: He is alert and oriented to person, place, and time. He has normal strength. No cranial nerve deficit. GCS eye subscore is 4. GCS verbal subscore is 5. GCS motor subscore is 6. Reflex Scores: Patellar reflexes are 2+ on the right side and 2+ on the left side. Achilles reflexes are 2+ on the right side and 2+ on the left side. Skin: Skin is warm and dry. He is not diaphoretic. Nursing note and vitals reviewed. Laboratory & Radiological Imaging (if done): Labs Reviewed BASIC METABOLIC PANEL CBC AND DIFFERENTIAL Narrative: The following orders were created for panel order CBC w/ Diff. Procedure Abnormality Status --------- ------ CBC Auto Differential[[id number]] Please view results for these tests on the individual orders. HEPATIC FUNCTION PANEL LIPASE URINALYSIS RAINBOW DRAW Narrative: The following orders were created for panel order Davis Draw. Procedure Abnormality Status --------- ------ Gold Top[[id number]] Light Blue Top[[id number]] Urine Culture Finney Conta...[[id number]] Please view results for these tests on the individual orders. GOLD TOP LIGHT BLUE TOP URINE CULTURE FINNEY CONTAINER TROPONIN CBC WITH AUTO DIFFERENTIAL No orders to display Procedures: Procedures The patient has been informed that they may have pre-hypertension or hypertension based on a blood pressure reading in the Emergency Department. I recommend that the patient call the primary care provider listed on their discharge instructions or a physician of their choice as soon as possible to arrange follow-up in the next 4 weeks for further evaluation of possible pre-hypertension or hypertension. . This chart was documented with [employer] system. There may be spelling errors as a result. Glenroy Doyle PA-C [facility] Emergency Department (Please note that portions of this note have been completed with a voice recognition software. Efforts were made to correct any errors, but occasionally words are mis-transcribed.) Glenroy Doyle III, PA-C 12/25/17 0405 Pt states that he has right upper quadrant pain, states he had a lot of emesis over the weekend.in this encounter Pt reports redness and pain to right hand 2nd digit. Pt squeezed it last week and had drainage. States it improved and symptoms returned 3 days ago.in this encounter ED Attestation: I was personally available for consult in the ED for this patient, if the Advanced Practice Provider (AVANI) needed any assistance. The AVANI evaluated the patient independently for a complaint of Wound Check, and completed their own examination, documentation, and discharge. I was seen at another hospital and they drained it but I am supposed to go to work and it is still swollen and redin this encounter Formatting of this note may be different from the original. ED PROVIDER NOTE [facility] EMERGENCY DEPARTMENT NAME: Kishor Magaña AGE: 32 y.o. : 1985 VISIT DATE: 06/11/2018 CSN: [id number] PCP: Physician No Clinical Impression: pt is a 32-year-old who comes the ED for cough. Patient reports for the last week he has had a cough with productive whitish sputum. Patient had chest x-ray bilateral lower lobe bronchitis. He was given Tessalon Perles, azithromycin in the ED. He was also given a breathing treatment. He had improved. He is afebrile, not hypoxic. I discussed smoking cessation with patient for less than 3 minutes. At this time he would like to be discharged. Discussed return if any worsening symptoms or concerns. Considered pneumonia, PE, reactive airway disease, aspiration, acute sinusitis, bacterial tracheitis, asthma, GERD, bronchiectasis. No significant pulmonary compromise currently. Return for worsening symptoms, inability to tolerate po, no improvement or worsening with symptom mgmt. Diagnosis: SNOMED CT(R) 1. Bronchitis BRONCHITIS Chief Complaint Patient presents with Cough HPI pt is a 32-year-old who comes the ED for cough. Patient reports for the last week he has had a cough with productive whitish sputum. He reports is tried NyQuil and DayQuil with no significant improvement. Denies any wheezing, shortness of breath, chest pain. His any fevers or chills. Denies any leg swelling, lightheadedness or dizziness. Denies any increased fatigue. He has been eating and drink without difficulty. He does report his shoulder sick with bronchitis. Denies any other recent sick contacts. Denies any new medications. He is an everyday smoker. Past Medical History: Diagnosis Date Patient denies medical problems Past Surgical History: Procedure Laterality Date denies History reviewed. No pertinent family history. Social History Social History Marital status: Spouse name: N/A Number of children: N/A Years of education: N/A Occupational History Not on file. Social History Main Topics Smoking status: Current Every Day Smoker Packs/day: 1.00 Types: Cigarettes Smokeless tobacco: Never Used Alcohol use Yes Comment: 1/2 bottle of bacardi per month Drug use: No Sexual activity: Not on file Other Topics Concern Not on file Social History Narrative No narrative on file Previous Medications OMEPRAZOLE (PRILOSEC) 20 MG CAPSULE Take 20 mg by mouth daily. Allergies Allergen Reactions Risperidone Wellbutrin [Bupropion Hcl] Zoloft [Sertraline] Review of Systems Constitutional: Negative for fatigue and fever. Respiratory: Positive for cough. Negative for shortness of breath, wheezing and stridor. Cardiovascular: Negative for chest pain and leg swelling. Gastrointestinal: Negative for abdominal pain, nausea and vomiting. Genitourinary: No urine or bowel changes. Skin: Negative for color change and rash. Neurological: Negative for dizziness and light-headedness. All other systems reviewed and are negative. Patient Vitals for the past 24 hrs: BP Temp Temp src Pulse Resp SpO2 Height Weight 06/11/18 0115 120/74 - - (!) 106 - 93 % - - 06/11/18 0113 118/82 - - 95 16 93 % - - 06/11/18 0032 - - - - - 93 % - - 06/11/18 0001 126/80 98.6 F (37 C ) Oral (!) 113 17 93 % 5' 10 74.8 kg (165 lb) Physical Exam Constitutional: He is oriented to person, place, and time. He appears well- developed and well-nourished. No distress. HENT: Head: Normocephalic and atraumatic. Mouth/Throat: Oropharynx is clear and moist. Eyes: EOM are normal. Pupils are equal, round, and reactive to light. Neck: Normal range of motion. Neck supple. Cardiovascular: Normal rate, regular rhythm, normal heart sounds and intact distal pulses. Pulses: Radial pulses are 2+ on the right side, and 2+ on the left side. Dorsalis pedis pulses are 2+ on the right side, and 2+ on the left side. Posterior tibial pulses are 2+ on the right side, and 2+ on the left side. Pulmonary/Chest: Effort normal and breath sounds normal. No respiratory distress. He has no wheezes. Coughing throughout exam. Abdominal: Soft. Bowel sounds are normal. He exhibits no distension. There is no tenderness. Musculoskeletal: Normal range of motion. Neurological: He is alert and oriented to person, place, and time. Skin: Skin is warm. Capillary refill takes less than 2 seconds. He is not diaphoretic. Psychiatric: He has a normal mood and affect. Nursing note and vitals reviewed. Laboratory & Radiographic Imaging (if done): No results found for this visit on 06/11/18. XR Chest AP/PA and LAT Non-public Result 1. Bilateral lower lobe bronchitis. 2. No airspace consolidation. Workstation ID: [id number] Procedures MDM The patient has been informed that they may have pre-hypertension or hypertension based on a blood pressure reading in the Emergency Department. I recommend that the patient call the primary care provider listed on their discharge instructions or a physician of their choice as soon as possible to arrange follow-up in the next 4 weeks for further evaluation of possible pre-hypertension or hypertension. . The patient has been informed that they may have pre-hypertension or hypertension based on a blood pressure reading in the emergency department. I recommended that the patient call the PCP listed on the discharge instructions or a physician of their choice this week to arrange follow up for further evaluation of possible pre-hypertension or hypertension. SNOMED CT(R) 1. Bronchitis BRONCHITIS ED Disposition ED Disposition Condition Comment Discharge Kishor Magaña discharged to home/self care in stable condition. Follow-up Information 1. [facility] Emergency Department. Specialty: Emergency Medicine Why: As needed, If any concerns, If symptoms worsen [address] [facility] [address] 2. Luís Rowe MD. Specialties: Internal Medicine, Pediatrics Why: For Recheck, To Establish [address] [address] Contact information for after-discharge care Follow-up information has not been specified. New Prescriptions AZITHROMYCIN (ZITHROMAX) 250 MG TABLET Take 1 (one) tablet (250 mg total) by mouth daily for 4 days. BENZONATATE (TESSALON) 100 MG CAPSULE Take 1 (one) capsule (100 mg total) by mouth 3 (three) times a day as needed for cough. Angelica Bermudez MD [place] [facility] Angelica Bermudez MD 06/11/18 0141 Pt c/o cough that began apprx 1 week ago. Pt states cough is productive and phlegm is white.in this encounter (unrecognized sect ion and content) No Status Records FoundNo Status Records FoundNo Status Records FoundNo Status Records FoundNo Status Records FoundNo Status Records FoundNo Status Records FoundNo Status Records FoundNo Status Records FoundNo Status Records FoundNo Status Records FoundNo Status Records FoundNo Status Records FoundNo Status Records Found INFORMATION SOURCE (unrecogn ized section and content) DATE CREATED AUTHOR 03/28/2018 [facility] DATE CREATED AUTHOR AUTHOR'S ORGANIZ ATION 09/02/2018 [facility] DATE CREATED AUTHOR AUTHOR'S ORGANIZ ATION 07/25/2019 [facility] DATE CREATED AUTHOR AUTHOR'S ORGANIZ ATION 02/28/2021 [facility] DATE CREATED AUTHOR AUTHOR'S ORGANIZ ATION 04/10/2021 [facility] DATE CREATED AUTHOR AUTHOR'S ORGANIZ ATION 08/08/2021 [facility] DATE CREATED AUTHOR AUTHOR'S ORGANIZ ATION 01/08/2022 [facility] DATE CREATED AUTHOR AUTHOR'S ORGANIZ ATION 06/26/2022 [facility] DATE CREATED AUTHOR AUTHOR'S ORGANIZ ATION 03/29/2023 [facility] DATE CREATED AUTHOR AUTHOR'S ORGANIZ ATION 02/16/2024 [facility] DATE CREATED AUTHOR AUTHOR'S ORGANIZ ATION 05/01/2024 [facility] DATE CREATED AUTHOR AUTHOR'S ORGANIZ ATION 08/17/2024 [facility] DATE CREATED AUTHOR AUTHOR'S ORGANIZ ATION 10/05/2024 [facility] DATE CREATED AUTHOR AUTHOR'S ORGANIZ ATION 11/03/2024 [facility] Reason for Visit (unrecogniz ed section and content) Reason Comments Consult SOB Status Reason Specialty Diagnoses / Procedures Referred By Contact Referred To Contact Closed Specialty Services Required/Patient 's Best Interest Pulmonology Diagnoses Shortness of breath Anali Hernandez CNP [address] [place] [address] [facility] [address] [place] [address] Status Reason Specialty Diagnoses / Procedures Referre d By Contact Referred To Contact Closed Cardiology Diagnoses Dyspnea, unspecified type Palpitation Procedures Holter monitor- up to 48 hour Jenna Cox CNP [address] [place] [address] [facility] [address] [facility] [address] [place] [address] Reason Comments Follow-up 4 WEEK F/U Status Reason Specialty Diagnoses / Procedures Referred By Contact Referred To Contact New Request Cardiology Diagnoses Dyspnea, unspecified type Procedures Echocardiogram complete w contrast Echocardiogram complete Jenna Cox, BUSINESS SERVICES ASSOCIATE [address] [place] [address] [facility] [address] [facility] [place] [address] Reason Comments Shortness of Breath Reason Comments Cough Diarrhea Reason Comments Testicle Pain Specialty Diagnoses / Procedures Referred By Contac t Referred To Contact Diagnoses Left-sided chest pain Chest pain, unspecified type Procedures Cardiac holter monitor (1 day-2 day) [place] XTRNL MOBILE CV TELEMETRY W/I&REPORT 30 DAYS MI XTRNL PT ACTIVATED ECG REC DWNLD 30 DAYS MI XTRNL MOBILE CV TELEMETRY W/TECHNICAL SUPPORT Alexei Luna, DO [address] [place] [address] Referral ID Status Reason Start Date Expiration Date Visits Re quested Visits Authorized [id number] Closed 08/06/2024 08/06/2025 1 1 Specialty Diagnoses / Procedures Referred By Contac t Referred To Contact Diagnoses Seizure disorder (HCC) Procedures EEG awake and asleep Alexei Luna DO [address] [place] [address] Referral ID Status Reason Start Date Expiration Date Visits Re quested Visits Authorized [id number] Open 08/06/2024 08/06/2025 1 1 Specialty Diagnoses / Procedures Referred By Contac t Referred To Contact Diagnoses Left-sided chest pain Chest pain, unspecified type Procedures Exercise stress test Alexei Luna DO [address] [place] [address] Referral ID Status Reason Start Date Expiration Date Visits Re quested Visits Authorized [id number] Closed 08/18/2024 08/06/2025 1 1 Reason Comments Conjunctivitis Bronchitis x 1 month , conjunctivitis right eye x 1.5-2 weeks has not seen pcp for issues Scheduled Active and Recently Administ ered Medications (unrecognized section and content) Medication Order 12/01/2021 12/02/2021 12/03/2021 levoFLOXacin (LEVAQUIN) tablet 500 mg (COMPLETED) 500 mg, Oral, NOW, 1 dose, On 12/03/21 at 1518, Indications: Epididymitis 1509 (Given - Provid er: Elizabeth Forrest LPN) naproxen (NAPROSYN) tablet 500 mg (COMPLETED) 500 mg, Oral, NOW, 1 dose, On 12/03/21 at 1518 1509 (Given - Provid er: Elizabeth Forrest LPN) Care Teams (unrecognized sec tion and content) Microbiology Lab Assistant Relationship Specialty Start Date End Date Alexei Lnua DO [address] [place] [address] PCP - General Family Medicine 04/21/21 Team Status: Active Member Role Status Dates Non-Staff physician primary care physician Active Start: March 21, 2023 Non-Staff physician FAMILY Active Start: Anitha rios 2022 Rosalio German MD EMERGENCY Active Start: March 21, 2023 JESSICA MAGAÑA Next of Kin Active Start: March 21, 2023 KISHOR MAGAÑA Guarantor Active Start: Emma vee 2022 Team Status: Active Member Role Status Dates None primary care physician Active Start : October 19, 2022 None FAMILY Active Start: October 19, 2022 POWER SUPPLY ENGINEERFROILAN Khanna ATTENDING Active Start: October 19, 2022 JESSICA MAGAÑA Next of Kin Active Start: Too henning 2022 KISHOR MAGAÑA Guarantor Active Start: Benedict ramires 2022 Microbiology Lab Assistant Relationship Specialty Start Date End Date Pcp, None [address] [place] [address] PCP - General 09/02/21 Goals (unrecognized section and content) Goals may be documented in a n alternate sectionGoals may be documented in an alternate section Ordered Prescriptions (unrec ognized section and content) Prescription Sig Dispensed Refills Start Date End Da te trimethoprim-polymyxin b (POLYTRIM) 03255-6.1 UNIT/ML-% ophthalmic solution Place 1 drop into the left eye every 4 hours for 7 days 3 mL 09/28/2024 10/05/2024 azithromycin (ZITHROMAX Z-DHAVAL) 250 MG tablet Take 1 z-dhaval as directed. 1 packet 09/28/2024 FOR RECORDS PERTAINING TO PATIENTS WHO ARE OR HAVE BEEN ENROLLED IN A CHEMICAL DEPENDENCY/SUBSTANCEABUSE PROGRAM, SOME INFORMATION MAY BE OMITTED. This clinical summary was aggregated from multiple sources. Caution should be exercised in using it in the provision of clinical care. This summary normalizes information from multiple sources, and as a consequence, information in this document may materially change the coding, format and clinical context of patient data. In addition, data may be omitted in some cases. CLINICAL DECISIONS SHOULD BE BASED ON THE PRIMARY CLINICAL RECORDS. [facility] [employer] [facility]. provides no warranty or guarantee of the accuracy or completeness of information in this document.
== END 2025-06-03 03:12 | disposition home or self-care (01) ==
PROVIDERS: Emergency Provider Internal Medicine
DX: M54.2 Cervicalgia (principal); M54.50 Low back pain, unspecified; G89.29 Other chronic pain
CPT/HCPCS: 72040; 72100; 99283